=== PATIENT | male | born 1960 ===

== ENCOUNTER 2020-04-21 12:43 | Outpatient (RCR) | payer OTHER, SELFPAY | END 2020-09-29 14:00 | disposition home or self-care (01) | LOC: HO.WCC 12:43 | PROVIDERS: Visit Provider Surgery | DX: E10.622 Type 1 diabetes mellitus with other skin ulcer (principal); L97.825 Non-pressure chronic ulcer of other part of left lower leg with muscle involvement without evidence of necrosis; T87.89 Other complications of amputation stump; E10.51 Type 1 diabetes mellitus with diabetic peripheral angiopathy without gangrene; E10.42 Type 1 diabetes mellitus with diabetic polyneuropathy; I10 Essential (primary) hypertension; Z89.512 Acquired absence of left leg below knee; Z89.511 Acquired absence of right leg below knee; Z91.19 Patient's noncompliance with other medical treatment and regimen | CPT/HCPCS: 11042; 11043 ==

== ENCOUNTER 2020-08-14 08:57 | Outpatient (REF) | payer OTHER, SELFPAY ==
--- NOTE | ~2020-08-14 | XR_ITS ---
EXAMINATION: XR TIBIA AND FIBULA, LEFT CLINICAL INFORMATION: Fall. COMPARISON: None TECHNIQUE: AP and lateral views of the left tibia and fibula were obtained. FINDINGS: Status post below-knee amputation. There is lucency suspicious for ulceration of the lateral aspect of the amputation stump. There is osseous bridging between the tibia and fibula in the distal amputation margin. Chronic-appearing ossifications are seen along the distal aspect of the tibia/stump. No acute fracture is seen. Severe medial compartment arthritis. Moderate lateral and patellofemoral arthritis. Chronic ossification adjacent to the superior pole of the patella/suprapatellar region. This may reflect a loose body. Vascular calcification. XR/XR tibia fibula LT 2V IMPRESSION: Status post below-knee amputation. Question soft tissue wound/ulceration in the lateral aspect of the amputation stump. Ossifications in the soft tissues along the distal tibia/stump, appearing chronic. No acute fracture is seen. Tricompartment osteoarthritis left knee.
== END 2020-08-14 08:58 | disposition home or self-care (01) ==
LOC: HO.XRAY 08:57
PROVIDERS: PCP Internal Medicine; Visit Provider Surgery
DX: Z91.81 History of falling (principal); E11.628 Type 2 diabetes mellitus with other skin complications; T14.8XXA Other injury of unspecified body region, initial encounter
CPT/HCPCS: 73590

== ENCOUNTER 2020-09-22 10:59 | Outpatient (REF) | payer OTHER, SELFPAY ==
[2020-09-22 11:33] LABS: MANUAL DIFF FLAG NO
[2020-09-22 11:36] LABS: Basophils Absolute Auto 0.1 X10*3/uL (0.0-0.2); Basophils Percent Auto 0.6 % (0-2); Eosinophils Absolute Auto 0.6 X10*3/uL (0.0-0.4); Eosinophils Percent Auto 6.8 % (0-4); Hematocrit 33.9 % (42-52); Hemoglobin 10.2 g/dl (14.0-18.0); Imm Gran Abs Auto 0.03 X10*3/uL (0.00-0.03); Imm Gran Pct Auto 0.4 % (0.0-0.4); Lymphocytes Absolute Auto 2.6 X10*3/uL (1.2-4.9); Lymphocytes Percent Auto 32.6 % (20-40); Mean Corpuscular HGB Conc 30.1 g/dl (31.0-36.0); Mean Corpuscular Hemoglobin 22.3 pg (27.0-33.0); Mean Corpuscular Volume 74.2 fL (80-98); Mean Platelet Volume 9.8 fL (9.4-12.4); Monocytes Absolute Auto 0.7 X10*3/uL (0.1-1.2); Monocytes Percent Auto 8.8 % (2-11); Neutrophils Absolute Auto 4.1 X10*3/uL (2.0-8.3); Neutrophils Percent Auto 50.8 % (45-73); Platelet Count 298 X10*3/uL (160-400); Red Blood Count 4.57 X10*6/uL (4.60-5.80); Red Cell Distribution Width 17.9 % (11.0-16.0); White Blood Count 8.1 X10*3/uL (4.8-10.8)
[2020-09-22 11:51] LABS: Estimated Average Glucose 240 mg/dL
[2020-09-22 12:02] LABS: Anion Gap 12 (12-20); Blood Urea Nitrogen 13 mg/dL (9-16); C Reactive Protein 0.58 mg/dL (< or = 0.50); Calcium 9.7 mg/dL (8.4-10.2); Carbon Dioxide 29 mmol/L (22-29); Chloride 102 mmol/L (96-108); Estimated Glomerular Filt Rate > 60; Glucose Random 225 mg/dL (60-115); Potassium 4.7 mmol/L (3.3-5.1); Sodium 138 mmol/L (135-145)
[2020-09-22 12:21] LABS: Erythrocyte Sedimentation Rate 34 MM/HR (0-15)
== END 2020-09-22 11:00 | disposition home or self-care (01) ==
LOC: HO.LAB 10:59
PROVIDERS: PCP Internal Medicine; Visit Provider Physician Assistant
DX: S81.802A Unspecified open wound, left lower leg, initial encounter (principal)
CPT/HCPCS: 36415; 80048; 83036; 84134; 85025; 85652; 86140

== ENCOUNTER 2020-09-29 12:48 | Outpatient (REF) | payer OTHER, SELFPAY ==
--- NOTE | ~2020-09-29 | MR_ITS ---
EXAMINATION: MR LOWER LEG WITHOUT AND WITH CONTRAST, LEFT CLINICAL INFORMATION: Amputation. Nonhealing wound. COMPARISON: Left tibia and fibula radiographs dated 08/14/2020 TECHNIQUE: Multisequence MR imaging of the left tibia and fibula was obtained before and after the administration of 10 mL Gadavist IV contrast on a high-field strength scanner. FINDINGS: BONE: Status post right-sided below-knee amputation seen on coronal images. No associated marrow edema. Left-sided below-knee amputation through the mid tibial diaphysis. There is increased T2/decreased T1 signal within the distal tibial diaphysis adjacent to the amputation demonstrating minimal postcontrast enhancement, likely indicating mild osteomyelitis. No additional abnormal marrow signal. MUSCLES/TENDONS: Severe muscle atrophy. INTRA-ARTICULAR STRUCTURES: Bilateral tricompartmental osteoarthritis. Intra-articular structures are poorly visualized on large [id number] imaging. SOFT TISSUES: Soft tissue ulceration at the inferior/lateral aspect of the mid lower leg in the region of the amputation with diffuse soft tissue edema and postcontrast enhancement, consistent with cellulitis. There is a peripherally enhancing fluid collection ventral to the distal tibia measuring approximately 1.2 x 3.2 x 3.3 cm, consistent with abscess formation. MR/MR lower leg LT wo/w con IMPRESSION: Soft tissue ulceration with prominent cellulitis at the mid lower leg in the region of the amputation. Peripherally enhancing fluid collection anterior to the distal tibia, consistent with abscess formation and measuring up to 3.3 cm. Adjacent marrow edema and mild enhancement of the distal tibia, likely representing mild osteoarthritis. No osseous erosion. Partially visualized right-sided below-knee amputation without evidence of complication.
== END 2020-09-29 12:49 | disposition home or self-care (01) ==
LOC: HO.MRI 12:48
PROVIDERS: Visit Provider Physician Assistant
DX: L97.825 Non-pressure chronic ulcer of other part of left lower leg with muscle involvement without evidence of necrosis (principal); M86.9 Osteomyelitis, unspecified
CPT/HCPCS: 73720; A9585

== ENCOUNTER 2021-01-18 12:25 | Emergency (ER) | payer OTHER, SELFPAY ==
--- NOTE | ~2021-01-18 | XR_ITS ---
EXAMINATION: XR CHEST CLINICAL INFORMATION: Cough and SOB. COMPARISON: Chest 04/06/2014. TECHNIQUE: 2 views of the chest were obtained. FINDINGS: The lungs are well-expanded and clear. The heart size and pulmonary vascularity is normal. No gross bony or the body seen. XR/XR chest 2V IMPRESSION: Unremarkable chest exam.
--- NOTE | ~2021-01-18 | CT_ITS ---
EXAMINATION: CT ANGIOGRAM OF THE CHEST WITH AND WITHOUT CONTRAST (CT PULMONARY ANGIOGRAM FOR PE) CLINICAL INFORMATION: Reason for Exam Elevated D-dimer. Cough. SOB. Elevated BNP COMPARISON: CT chest December 02, 2013 TECHNIQUE: Prior to contrast administration, noncontrast localization images were obtained. Subsequently, multidetector volumetric imaging was performed from the thoracic inlet to below the diaphragms following the administration of 85 mL Omnipaque 350 intravenous contrast. No contrast reaction reported Sagittal, coronal, and MIP oblique sagittal reformatted images were obtained on the CT workstation, uploaded to PACS, and reviewed. This CT examination was performed using dose optimization techniques as appropriate, variously including the following: *Automated exposure control *Adjustment of mA and/or kV according to patient size (this includes techniques or standardized protocols for targeted exams where dose is matched to indication/reason for exam; i.e. extremities or head) *Use of iterative reconstruction technique Total exam dose-length product 707 mGy-cm FINDINGS: QUALITY OF STUDY/CONTRAST BOLUS: Limited PULMONARY ARTERIES: No evidence of central pulmonary emboli. Limited opacification of the pulmonary arteries diminishes sensitivity for pulmonary emboli, particularly in the peripheral vessels. THORACIC AORTA: No aneurysm or dissection. LUNG: No focal consolidation, nodules or masses. PLEURA: No pleural effusion or pneumothorax. MEDIASTINUM: Normal heart size. No pericardial effusion. No hilar or mediastinal lymphadenopathy. No evidence of septal bowing or right heart strain. CHEST WALL/AXILLA: No axillary or internal mammary lymphadenopathy. OSSEOUS STRUCTURES: No acute or suspicious osseous abnormality. UPPER ABDOMEN: Small gallstones layering dependently in the gallbladder. No edema of the gallbladder wall or bile duct dilatation. No reflux of contrast into the hepatic veins to suggest elevated right heart pressures. Small splenule at the anterior splenic margin. CT/CT angio chest PE protocol IMPRESSION: 1. No evidence of central pulmonary emboli. Limited opacification of the pulmonary arteries. If clinical concern remains for pulmonary embolism. Ventilation perfusion lung scan could be considered. 2. No acute abnormality of the chest. VTE: negative
[2021-01-18 12:34] VITALS: BP 112/90; PULSE 70; RESP 18; TEMP 36.8; O2SAT 97; BMI 36.5
[2021-01-18] MEDS: Benzonatate 100 MG CAPSULE 200 MG PO (13:03)
[2021-01-18] MEDS: HYDROcodone/Homat 5/1.5/5 ML 5 ML SYRUP PO (13:03)
--- NOTE | 2021-01-18 13:30 | ED_ITS ---
HPI - General Adult General Chief complaint: General Medical Stated complaint: SOB, COUGH Time Seen by Provider: 01/18/21 12:50 Source: patient Mode of arrival: ambulatory History of Present Illness HPI narrative: 60-year-old male with a PMHx of DM, bilateral BKA, presenting to ED complaining of dry cough, nasal congestion and SOB worsening x3 weeks. Patient admits was seen at [facility] on 01/16 for similar symptoms had workup that was unremarkable however reports continued unremitting cough. Denies fever, chills, chest pain, abdominal pain, nausea/vomiting, recent travel, history of blood clots. Does not take anticoagulation Obtained records from [facility] patient had CXR that showed increasing atelectasis, labs that were notable for BNP>1000, otherwise unremarkable. Patient was discharged with diagnosis of viral syndrome prescribed cough syrup with codeine. Related Data Home Medications Medication Instructions Recorded Confirmed dulaglutide 0.75 mg/0.5 mL 0.75 mg SUBCUT QWEEK 03/17/20 12/02/20 subcutaneous pen injector (Trulicity) hydrocortisone 1 % topical cream 1 applic TOPICAL BID-QID PRN 03/17/20 12/02/20 (Anti-Itch (hydrocortisone)) metformin 1,000 mg tablet 1,000 mg PO BID 03/17/20 12/02/20 mupirocin calcium 2 % topical cream 1 applic TOPICAL TID 03/17/20 12/02/20 polyethylene glycol 3350 17 17 g PO DAILY 03/17/20 12/02/20 gram/dose oral powder (Miralax) ferrous sulfate 325 mg (65 mg 325 mg PO DAILY 12/02/20 12/02/20 iron) tablet Previous Rx's Medication Instructions Recorded lancets 28 gauge (FreeStyle 28 gauge TOPICAL QID 30 Days #120 05/25/20 Lancets) ea blood sugar diagnostic (FreeStyle #100 ea 07/13/20 Test) atorvastatin 80 mg tablet 80 mg PO DAILY #30 tab 09/05/20 aspirin 81 mg tablet,delayed 81 mg PO DAILY #90 tab 09/30/20 release (Adult Low Dose Aspirin) ferrous sulfate 325 mg (65 mg 325 mg PO DAILY 90 Days #90 tab 09/30/20 iron) tablet,delayed release insulin lispro 100 unit/mL 35 unit SUBCUT TID 30 Days #31.5 ml 10/14/20 subcutaneous pen (Humalog KwikPen (U-100) Insulin) ibuprofen 800 mg tablet 800 mg PO TID #90 tab 10/27/20 insulin syringe-needle U-100 0.3 #100 ea 11/05/20 mL 31 gauge x 11/01 bilateral socket replacement #1 ea 11/10/20 dextromethorphan HBr 2.5 mg 5 mg PO Q2-4H PRN 5 Days #16 ea 12/02/20 lozenges (Scot-Tussin DM Cough Chasers) insulin glargine 100 unit/mL (3 65 unit SUBCUT QPM 90 Days #58.5 ml 12/09/20 mL) subcutaneous pen (Lantus Solostar U-100 Insulin) amlodipine 10 mg tablet 10 mg PO DAILY #30 tab 12/17/20 lisinopril 30 mg tablet 30 mg PO DAILY #90 tab 12/17/20 pantoprazole 40 mg tablet,delayed 40 mg PO DAILY #30 tab 12/23/20 release cholecalciferol (vitamin D3) 25 25 mcg PO DAILY #90 cap 12/31/20 mcg (1,000 unit) capsule (Vitamin D3) azithromycin 250 mg tablet 250 mg PO DIRECTED 5 Days #6 tab 01/06/21 lorazepam 1 mg tablet 1 mg PO BID PRN 30 Days #60 tab 01/07/21 zolpidem 10 mg tablet 10 mg PO ONCE #30 tab 01/07/21 insulin glargine 100 unit/mL (3 65 unit SUBCUT QPM 90 Days #58.5 ml 01/12/21 mL) subcutaneous pen (Lantus Solostar U-100 Insulin) albuterol sulfate 90 mcg/actuation 2 puff INHALATION Q4-6H PRN #6.7 g 01/18/21 aerosol inhaler apixaban 5 mg tablet (Eliquis) 5 mg PO BID 30 Days #60 tab 01/18/21 azithromycin 250 mg tablet See Rx Instructions .ROUTE 01/18/21 .COMPLEX #6 tab Allergies Allergy/AdvReac Type Severity Reaction Status Date / Time No Known Allergies Allergy Verified 12/02/20 10:39 Review of Systems Review of Systems: Constitutional: No Fever, No Chills, No Fatigue, No Malaise ENT/Mouth: No Ear Pain, + Nasal Congestion, No sore throat Eyes: No Eye Pain, No Swelling Cardiovascular: No Chest Pain, + SOB, No Dyspnea on Exertion, No Orthopnea, No Edema Respiratory: + Cough, No Sputum, No Wheezing, No Smoke Exposure, + Dyspnea Gastrointestinal: No Nausea, No Vomiting, No Abdominal pain Genitourinary: No Dysuria, No Urinary Frequency, No Hematuria Musculoskeletal: No joint pain, No Myalgias, No Joint Swelling Skin: No Skin Lesions, No rash Neuro: No Weakness, No Numbness, No Paresthesias, No Loss of Consciousness, No Dizziness, No Headache Yes all other systems are reviewed and are negative [facility] Past Medical History Attestation statement: The following information was validated with the patient. Medical History Depression with anxiety Diabetes mellitus Dyslipidemia Employs prosthetic leg Essential hypertension GERD (gastroesophageal reflux disease) History of heroin use Insomnia Surgical History Absence of right lower leg below knee Amputated toe of left foot Below-knee amputation of left lower extremity S/P BKA (below knee amputation) bilateral Family History Family History Father Medical history unknown Mother Diabetes Hypertension Stroke Brother No problems noted. Brother No problems noted. Son No problems noted. Daughter No problems noted. Social History Social History Housing: Apartment Alcohol intake: never Patient Tobacco Use Status: Former Tobacco user Tobacco use type: Cigarette e-Cigarette/Vaping Use: Never Used Second Hand Smoke Exposure: No Use of substances other than those prescribed or required for medical reasons: No Advance Directives: No Advance Directives Information Provided: No service: No Current occupational status: disabled Physical Exam Vital Signs: Vital Signs: Last Vital Signs Temp 98.2 F 01/18/21 12:34 Pulse 86 01/18/21 15:30 Resp 18 01/18/21 12:34 BP 112/90 H 01/18/21 12:34 Pulse Ox 97 01/18/21 12:34 Body Mass Index 36.5 Const: General: cooperative Orientation/consciousness: patient oriented x3 Limitations: no limitations HENMT: Head: Yes normal to inspection Ears: hearing grossly normal bilaterally General nose exam: Nasal discharge present purulent Face and sinus: Yes normal facial exam Eyes: General: appearance normal, both eyes and all related structures EOM: EOMs intact bilaterally Neck: Neck: Yes normal visual inspection and Yes no meningeal signs Resp: Effort & Inspection: normal respiratory effort Auscultation: no wheezes and diminished lung sounds (diminished breath sounds bibasilar) Cardio: Rate: regular rate Heart sounds: S1 normal heart sound present and S2 normal heart sound present GI: Inspection: Yes normal to inspection Palpation (GI): Soft to palpation, nontender and no guarding : General: Yes no CVA tenderness Back/Spine/Pelvis: Back: no CVA tenderness Skin: Rashes: no rashes Wounds: no wounds Neuro: General: patient oriented x3 and no meningeal signs Gait exam (Neuro): Normal gait present Extrem: Other: Bilateral BKA General: Yes normal to inspection Course Course Course Narrative: XR chest 2V IMPRESSION: Unremarkable chest exam. -EKG noted to be AFib at a rate of 77. No prior evidence or history of AFib, however patient does appear to have been in AFib at [facility] on 01/16/21. ChadVasc2 score = 3 patient should be anticoagulated. Does appear patient was previously on Eliquis 5mg b.i.d. in October, patient does not know why he was on this medication nor why he was discontinued on it (per [facility] records appear was for DVT prophylaxis) -No leukocytosis, H&H stable, D-dimer elevated to 567 >> CTA ordered -troponin mildly elevated at 13.7 > will obtain 3 hour repeat, BNP 217, labs otherwise unremarkable -COVID-19/influenza/RSV negative 1718- CT angio chest PE protocol IMPRESSION:? 1. No evidence of central pulmonary emboli. Limited opacification of the pulmonary arteries. If clinical concern remains for pulmonary embolism. Ventilation perfusion lung scan could be considered. 2. No acute abnormality of the chest. VTE: negative -1737--case discussed with Cardiology, Dr. Lundberg who recommended anticoagulation. Patient's SOB likely from URI rather than acute heart failure, no echo in our system, will symptomatically treated & have close follow-up with Cardiology for outpatient ECHO Medical Decision Making MDM Narrative Medical decision making narrative: 60-year-old male with a PMHx of DM, bilateral BKA, presenting to ED complaining of dry cough, nasal congestion and SOB worsening x3 weeks. On exam vital signs stable, diminished breath sounds bibasilar, bilateral BKA. Concern for viral syndrome/COVID-19 vs pneumonia vs bronchitis vs PE/CHF. Symptoms atypical for ACS Plan: EKG, labs, CXR, DuoNeb, COVID-19 testing, reassess Lab Data Result diagrams: 01/18/21 14:03 01/18/21 14:03 Labs: Lab Results 01/18/21 01/18/21 01/18/21 Range/Units 13:15 14:03 14:03 WBC 10.1 (4.8-10.8) X10*3/uL RBC 4.45 L (4.60-5.80) X10*6/uL Hgb 11.1 L (14.0-18.0) g/dl Hct 35.7 L (42-52) % MCV 80.2 (80-98) fL MCH 24.9 L (27.0-33.0) pg MCHC 31.1 (31.0-36.0) g/dl RDW 18.6 H (11.0-16.0) % Plt Count 248 (160-400) X10*3/uL MPV 9.6 (9.4-12.4) fL Immature Gran % (Auto) 0.3 (0.0-0.4) % Neut % (Auto) 44.1 L (45-73) % Lymph % (Auto) 28.4 (20-40) % [place] % (Auto) 5.3 (2-11) % Eos % (Auto) 21.5 H (0-4) % Baso % (Auto) 0.4 (0-2) % Lymph # (Auto) 2.9 (1.2-4.9) X10*3/uL [place] # (Auto) 0.5 (0.1-1.2) X10*3/uL Eos # (Auto) 2.2 H (0.0-0.4) X10*3/uL Baso # (Auto) 0.0 (0.0-0.2) X10*3/uL Abs Immat Gran (auto) 0.03 (0.00-0.03) X10*3/uL Absolute Neuts (auto) 4.5 (2.0-8.3) X10*3/uL Absolute Nucleated RBC 0.000 (0.0-0.012) X10*3/uL Nucleated RBC % (auto) 0.0 (0.0-0.2) /100WBC Smear Tech's Comments VERIFIED PT 11.8 (9.9-13.0) SEC INR 1.0 (0.9-1.1) APTT 30.4 (24.1-38.0) SEC D-Dimer 567 NG/ML Sodium (135-145) mmol/L Potassium (3.3-5.1) mmol/L Chloride (96-108) mmol/L Carbon Dioxide (22-29) mmol/L Anion Gap (12-20) BUN (9-16) mg/dL Creatinine (0.5-1.4) mg/dL Estim Creat Clear Calc Estimated GFR Random Glucose (60-115) mg/dL Calcium (8.4-10.2) mg/dL Total Bilirubin (0.0-1.0) mg/dL Direct Bilirubin (0.0-0.5) mg/dL AST (5-37) U/L ALT (0-40) U/L Alkaline Phosphatase (39-117) U/L Troponin I High Sens (<3.5-35.0) ng/L B-Natriuretic Peptide (<100) pg/mL Total Protein (6.5-8.0) g/dL Albumin (3.5-5.0) g/dL Coronavirus (PCR) NEGATIVE (Negative) Influenza Type A (PCR) NEGATIVE (Negative) Influenza Type B (PCR) NEGATIVE (Negative) RSV RNA Qual (PCR) NEGATIVE (Negative) 01/18/21 01/18/21 Range/Units 14:03 14:03 WBC (4.8-10.8) X10*3/uL RBC (4.60-5.80) X10*6/uL Hgb (14.0-18.0) g/dl Hct (42-52) % MCV (80-98) fL MCH (27.0-33.0) pg MCHC (31.0-36.0) g/dl RDW (11.0-16.0) % Plt Count (160-400) X10*3/uL MPV (9.4-12.4) fL Immature Gran % (Auto) (0.0-0.4) % Neut % (Auto) (45-73) % Lymph % (Auto) (20-40) % [place] % (Auto) (2-11) % Eos % (Auto) (0-4) % Baso % (Auto) (0-2) % Lymph # (Auto) (1.2-4.9) X10*3/uL [place] # (Auto) (0.1-1.2) X10*3/uL Eos # (Auto) (0.0-0.4) X10*3/uL Baso # (Auto) (0.0-0.2) X10*3/uL Abs Immat Gran (auto) (0.00-0.03) X10*3/uL Absolute Neuts (auto) (2.0-8.3) X10*3/uL Absolute Nucleated RBC (0.0-0.012) X10*3/uL Nucleated RBC % (auto) (0.0-0.2) /100WBC Smear Tech's Comments PT (9.9-13.0) SEC INR (0.9-1.1) APTT (24.1-38.0) SEC D-Dimer NG/ML Sodium 137 (135-145) mmol/L Potassium 3.9 (3.3-5.1) mmol/L Chloride 104 (96-108) mmol/L Carbon Dioxide 25 (22-29) mmol/L Anion Gap 12 (12-20) BUN 8 L (9-16) mg/dL Creatinine 0.76 (0.5-1.4) mg/dL Estim Creat Clear Calc 159.6 Estimated GFR > 60 Random Glucose 282 H (60-115) mg/dL Calcium 8.7 D (8.4-10.2) mg/dL Total Bilirubin 0.3 (0.0-1.0) mg/dL Direct Bilirubin < 0.2 (0.0-0.5) mg/dL AST 16 (5-37) U/L ALT 9 (0-40) U/L Alkaline Phosphatase 158 H (39-117) U/L Troponin I High Sens 13.7 (<3.5-35.0) ng/L B-Natriuretic Peptide 217 H (<100) pg/mL Total Protein 5.8 L (6.5-8.0) g/dL Albumin 2.6 L (3.5-5.0) g/dL Coronavirus (PCR) (Negative) Influenza Type A (PCR) (Negative) Influenza Type B (PCR) (Negative) RSV RNA Qual (PCR) (Negative) Discharge Plan Discharge Clinical Impression: URI (upper respiratory infection), Atrial fibrillation Instructions: A-fib (Atrial Fibrillation) (ED) Additional Instructions: You are in a new heart rhythm called atrial fibrillation, this puts you at higher risk of strokes, you need to start taking Eliquis which is a blood thinner Being on a blood thinner also which a higher risk of bleeding, fever knee falls, or head injury please come to the ED for evaluation You need to follow-up with cardiology as soon as possible, call tomorrow to make an appointment Azithromycin as an antibiotic, please take as prescribed In addition use albuterol inhaler, and Tessalon Perles for cough/shortness of breath If her symptoms persist or worsen, you have constant worsening shortness of breath, developed chest pain,, fever, weakness return to the ED immediately Prescriptions: New Eliquis 5 mg tablet 5 mg PO BID 30 Days Qty: 60 RF: 0 albuterol sulfate 90 mcg/actuation HFA aerosol inhaler 2 puff inhalation Q4-6H PRN (Reason: shortness of breath or wheezing) Qty: 6.7 RF: 0 azithromycin 250 mg tablet See Rx Instructions .ROUTE .COMPLEX Qty: 6 RF: 0 No Action lancets [FreeStyle Lancets] 28 gauge misc 28 gauge topical QID 30 Days Qty: 120 RF: 11 (DME) FreeStyle Test Strip See Rx Instructions .ROUTE .MEDSUPPLY Qty: 100 RF: 11 atorvastatin 80 mg tablet 80 mg PO DAILY Qty: 30 RF: 6 insulin lispro [Humalog KwikPen Insulin] 100 unit/mL insulin pen 35 unit subcut TID 30 Days Qty: 31.5 RF: 6 ibuprofen 800 mg tablet 800 mg PO TID Qty: 90 RF: 3 (DME) bilateral socket replacement See Rx Instructions .Route .MEDSUPPLY Qty: 1 RF: 0 Lantus Solostar U-100 Insulin 100 unit/mL (3 mL) insulin pen 65 unit subcut QPM 90 Days Qty: 58.5 RF: 2 amlodipine 10 mg tablet 10 mg PO DAILY Qty: 30 RF: 6 lisinopril 30 mg tablet 30 mg PO DAILY Qty: 90 RF: 3 pantoprazole 40 mg tablet,delayed release (DR/EC) 40 mg PO DAILY Qty: 30 RF: 4 cholecalciferol (vitamin D3) [Vitamin D3] 25 mcg (1,000 unit) capsule 25 mcg PO DAILY Qty: 90 RF: 3 azithromycin 250 mg tablet 250 mg PO DIRECTED 5 Days Qty: 6 RF: 0 zolpidem 10 mg tablet 10 mg PO ONCE Qty: 30 RF: 0 lorazepam 1 mg tablet 1 mg PO BID PRN (Reason: agitation) 30 Days Qty: 60 RF: 0 Lantus Solostar U-100 Insulin 100 unit/mL (3 mL) insulin pen 65 unit subcut QPM 90 Days Qty: 58.5 RF: 3 mupirocin calcium 2 % cream 1 applic topical TID RF: 0 hydrocortisone [Anti-Itch (HC)] 1 % cream 1 applic topical BID-QID PRNRF: 0 polyethylene glycol 3350 [Miralax] 17 gram/dose powder 17 g PO DAILY RF: 0 metformin 1,000 mg tablet 1,000 mg PO BID RF: 0 Trulicity 0.75 mg/0.5 mL pen injector 0.75 mg subcut QWEEK RF: 0 ferrous sulfate 325 mg (65 mg iron) tablet,delayed release (DR/EC) 325 mg PO DAILY 90 Days Qty: 90 RF: 3 aspirin [Adult Low Dose Aspirin] 81 mg tablet,delayed release (DR/EC) 81 mg PO DAILY Qty: 90 RF: 2 (DME) insulin syringe-needle U-100 0.3 mL 31 gauge x 5/16 syringe See Rx Instructions .ROUTE .MEDSUPPLY Qty: 100 RF: 3 ferrous sulfate 325 mg (65 mg iron) tablet 325 mg PO DAILY RF: 0 Scot-Tussin DM Cough Chasers 2.5 mg lozenge 5 mg PO Q2-4H PRN (Reason: cough) 5 Days Qty: 16 RF: 0 Referrals: Mark Lundberg MD [Physician] - 2 days Yoli Ocampo MD [Primary Care Provider] - 2 days
[2021-01-18] MEDS: Albuterol/Iprat 2.5/0.5MG 3 ML AMPUL.NEB INHALE ×2 (13:33→15:30)
[2021-01-18 13:34] VITALS: PULSE 81; O2SAT 93
--- NOTE | 2021-01-18 13:37 | ECG_ITS ---
Test Reason : GENERAL MEDICINE Blood Pressure : / mmHG Vent. Rate : 077 BPM Atrial Rate : 075 BPM P-R Int : 000 ms QRS Dur : 094 ms QT Int : 402 ms P-R-T Axes : 000 -44 002 degrees QTc Int : 454 ms Atrial fibrillation Left axis deviation Abnormal ECG When compared to the previous EKG of Atrial fibrillation Present Referred By: Debbie Perez Electronically Signed By:Mark Lundberg
[2021-01-18 13:59] LABS: Influenza A PCR NEGATIVE (Negative); Influenza B PCR NEGATIVE (Negative); Resp Syncy Virus RNA Qual PCR NEGATIVE (Negative); SARS COV2 PCR INHOUSE NEGATIVE (Negative)
[2021-01-18 14:08] LABS: Basophils Percent Auto 0.4 % (0-2); Eosinophils Absolute Auto 2.2 X10*3/uL (0.0-0.4); Eosinophils Percent Auto 21.5 % (0-4); Hematocrit 35.7 % (42-52); Hemoglobin 11.1 g/dl (14.0-18.0); Imm Gran Abs Auto 0.03 X10*3/uL (0.00-0.03); Imm Gran Pct Auto 0.3 % (0.0-0.4); Lymphocytes Absolute Auto 2.9 X10*3/uL (1.2-4.9); Lymphocytes Percent Auto 28.4 % (20-40); Mean Corpuscular HGB Conc 31.1 g/dl (31.0-36.0); Mean Corpuscular Hemoglobin 24.9 pg (27.0-33.0); Mean Corpuscular Volume 80.2 fL (80-98); Mean Platelet Volume 9.6 fL (9.4-12.4); Monocytes Absolute Auto 0.5 X10*3/uL (0.1-1.2); Monocytes Percent Auto 5.3 % (2-11); Neutrophils Absolute Auto 4.5 X10*3/uL (2.0-8.3); Neutrophils Percent Auto 44.1 % (45-73); Platelet Count 248 X10*3/uL (160-400); Red Blood Count 4.45 X10*6/uL (4.60-5.80); Red Cell Distribution Width 18.6 % (11.0-16.0); White Blood Count 10.1 X10*3/uL (4.8-10.8)
[2021-01-18 14:11] LABS: MANUAL DIFF FLAG SCAN
[2021-01-18 14:18] LABS: Prothrombin Time 11.8 SEC (9.9-13.0)
[2021-01-18 14:21] LABS: D Dimer 567 NG/ML; Partial Thromboplastin Time 30.4 SEC (24.1-38.0)
[2021-01-18 14:38] LABS: Alanine Aminotransferase 9 U/L (0-40); Albumin Level 2.6 g/dL (3.5-5.0); Alkaline Phosphatase 158 U/L (39-117); Anion Gap 12 (12-20); Aspartate Amino Transferase 16 U/L (5-37); Bilirubin Direct < 0.2 mg/dL (0.0-0.5); Bilirubin Total 0.3 mg/dL (0.0-1.0); Blood Urea Nitrogen 8 mg/dL (9-16); Calcium 8.7 mg/dL (8.4-10.2); Carbon Dioxide 25 mmol/L (22-29); Chloride 104 mmol/L (96-108); Creatinine Clr Calc Pharmacy 159.6; Estimated Glomerular Filt Rate > 60; Glucose Random 282 mg/dL (60-115); Potassium 3.9 mmol/L (3.3-5.1); Sodium 137 mmol/L (135-145); Total Protein 5.8 g/dL (6.5-8.0)
[2021-01-18 14:39] LABS: SLIDE REVIEW VERIFIED
[2021-01-18 14:42] LABS: B Type Natriuretic Peptide 217 pg/mL (<100); Troponin-I High Sensitivity 13.7 ng/L (<3.5-35.0)
[2021-01-18 15:30] VITALS: PULSE 86; O2SAT 95
[2021-01-18] MEDS: Fluticasone Propionate Nasal 16 GM SPRAY 2 SPRAY NOSTRIL-B (15:37)
[2021-01-18] MEDS: iohexoL 350 MG/ML 100 ML INFUS..BTL IV (16:46)
--- NOTE | 2021-01-18 17:04 | PC.NURSE ---
awaiting ct results and second trop being drawn at this time
[2021-01-18] MEDS: Apixaban 5 MG TABLET PO (17:55)
== END 2021-01-18 17:59 | disposition home or self-care (01) ==
PROVIDERS: Physician Assistant; Emergency Provider Emergency Medicine; PCP Internal Medicine
DX: J06.9 Acute upper respiratory infection, unspecified (principal); I48.91 Unspecified atrial fibrillation; Z20.822 Contact with and (suspected) exposure to COVID-19; R06.02 Shortness of breath; I10 Essential (primary) hypertension; E11.9 Type 2 diabetes mellitus without complications; Z79.4 Long term (current) use of insulin; Z79.82 Long term (current) use of aspirin; Z79.899 Other long term (current) drug therapy
CPT/HCPCS: 0241U; 36415; 71046; 71275; 80048; 80076; 83880; 84484; 85025; 85379; 85610; 85730; 93005; 94640; 99284; Q9967

== ENCOUNTER → 2021-01-21 12:55 | Outpatient (BNVA) | payer OTHER, SELFPAY | PROVIDERS: PCP Internal Medicine; Referring Provider Internal Medicine; Visit Provider Nurse Practitioner Family | DX: I48.91 Unspecified atrial fibrillation (principal); E78.5 Hyperlipidemia, unspecified; E11.59 Type 2 diabetes mellitus with other circulatory complications; I10 Essential (primary) hypertension; G47.10 Hypersomnia, unspecified; E66.9 Obesity, unspecified; Z79.4 Long term (current) use of insulin | CPT/HCPCS: 93005; 99202 ==

== ENCOUNTER → 2021-03-03 13:29 | Outpatient (BNVA) | payer OTHER, SELFPAY | PROVIDERS: PCP Internal Medicine; Referring Provider Internal Medicine; Visit Provider Nurse Practitioner Family ==

== ENCOUNTER → 2021-03-11 15:06 | Outpatient (REF) | payer OTHER, SELFPAY | LOC: HO.SL 15:06 | PROVIDERS: PCP Internal Medicine; Visit Provider Nurse Practitioner Family | DX: G47.10 Hypersomnia, unspecified (principal); I48.91 Unspecified atrial fibrillation | CPT/HCPCS: 95806 ==

== ENCOUNTER 2021-03-14 11:44 | Inpatient (IN) | payer OTHER, SELFPAY ==
[2021-03-14] VITALS (16 sets, daily range): BP systolic 109–162; BP diastolic 48–90; PULSE 78–100; RESP 15–90; TEMP 36.5–37.1; O2SAT 88–96; BMI 36.5
--- NOTE | ~2021-03-14 | CT_ITS ---
EXAMINATION: CT ANGIOGRAM OF THE CHEST WITH AND WITHOUT CONTRAST (CT PULMONARY ANGIOGRAM FOR PE) CLINICAL INFORMATION: Reason for Exam Hypoxia. PE? pneumonia? COMPARISON: 01/18/2021 TECHNIQUE: Prior to contrast administration, noncontrast localization images were obtained. Subsequently, multidetector volumetric imaging was performed from the thoracic inlet to below the diaphragms following the administration of 71 mL Omnipaque 350 intravenous contrast. No contrast reaction reported Sagittal, coronal, and MIP oblique sagittal reformatted images were obtained on the CT workstation, uploaded to PACS, and reviewed. This CT examination was performed using dose optimization techniques as appropriate, variously including the following: *Automated exposure control *Adjustment of mA and/or kV according to patient size (this includes techniques or standardized protocols for targeted exams where dose is matched to indication/reason for exam; i.e. extremities or head) *Use of iterative reconstruction technique Total exam dose-length product 550 mGy-cm FINDINGS: QUALITY OF STUDY/CONTRAST BOLUS: Satisfactory. PULMONARY ARTERIES: No central or segmental pulmonary emboli. THORACIC AORTA: No aneurysm or dissection. LUNG: Patchy peripheral groundglass opacities are noted favoring atypical infection. No mass. PLEURA: No pleural effusion or pneumothorax. MEDIASTINUM: Normal heart size. No pericardial effusion. Mildly prominent right paratracheal and prevascular lymph nodes are similar to baseline. Appearance is similar to older studies going back to 2013. No evidence of septal bowing or right heart strain. CHEST WALL/AXILLA: No axillary or internal mammary lymphadenopathy. OSSEOUS STRUCTURES: No acute or suspicious osseous abnormality. UPPER ABDOMEN: Splenules noted No reflux of contrast into the hepatic veins to suggest elevated right heart pressures. CT/CT angio chest PE protocol IMPRESSION: No evidence for acute or chronic pulmonary embolism. Findings of atypical infection favoring viral infection. VTE: negative
--- NOTE | ~2021-03-14 | XR_ITS ---
EXAMINATION: XR CHEST CLINICAL INFORMATION: Pneumonia. COMPARISON: CT angiogram chest 01/18/2021 and chest x-ray 01/18/2021. TECHNIQUE: Frontal view of the chest was obtained. FINDINGS: The lungs are well-expanded without acute pneumonic consolidation. There is mild increased vascularity slightly more prominent in the right upper lobe, question mild pulmonary vascular congestion. The heart size is normal. Mild degenerative changes right shoulder joint is noted. XR/XR chest 1V IMPRESSION: Mild increased pulmonary vascularity question mild congestion. No acute consolidation seen
[2021-03-14] MEDS: 0.9 % Sodium Chloride 1,000 ML 999 ML IV (12:25)
[2021-03-14 12:47] LABS: MANUAL DIFF FLAG NO
[2021-03-14] MEDS: methylPREDNISolone Sod Succ 125 MG/2 ML VIAL IVPUSH (12:47)
[2021-03-14] MEDS: Magnesium Sulfate/H2O 2 GM/50 ML PIGGYBACK IV (12:47)
[2021-03-14 12:49] LABS: Basophils Absolute Auto 0.1 X10*3/uL (0.0-0.2); Basophils Percent Auto 0.6 % (0-2); Eosinophils Absolute Auto 1.1 X10*3/uL (0.0-0.4); Eosinophils Percent Auto 11.3 % (0-4); Hematocrit 41.5 % (42-52); Hemoglobin 13.4 g/dl (14.0-18.0); Imm Gran Abs Auto 0.03 X10*3/uL (0.00-0.03); Imm Gran Pct Auto 0.3 % (0.0-0.4); Lymphocytes Absolute Auto 1.2 X10*3/uL (1.2-4.9); Lymphocytes Percent Auto 12.4 % (20-40); Mean Corpuscular HGB Conc 32.3 g/dl (31.0-36.0); Mean Corpuscular Hemoglobin 26.6 pg (27.0-33.0); Mean Corpuscular Volume 82.3 fL (80-98); Mean Platelet Volume 9.9 fL (9.4-12.4); Monocytes Absolute Auto 0.7 X10*3/uL (0.1-1.2); Monocytes Percent Auto 6.7 % (2-11); Neutrophils Absolute Auto 6.7 X10*3/uL (2.0-8.3); Neutrophils Percent Auto 68.7 % (45-73); Platelet Count 267 X10*3/uL (160-400); Red Blood Count 5.04 X10*6/uL (4.60-5.80); Red Cell Distribution Width 15.9 % (11.0-16.0); White Blood Count 9.8 X10*3/uL (4.8-10.8)
[2021-03-14 12:54] LABS: INTERNATIONAL NORM RATIO 1.2 (0.9-1.1); Prothrombin Time 13.5 SEC (9.9-13.0)
[2021-03-14 12:57] LABS: Partial Thromboplastin Time 38.5 SEC (24.1-38.0)
--- NOTE | 2021-03-14 12:58 | ED.GENADULT ---
HPI - General Adult General Chief complaint: Upper Respiratory Symptoms Stated complaint: SOB,NO RELIEF W/INHALER Time Seen by Provider: 03/14/21 11:54 Source: patient Mode of arrival: ambulatory Limitations: no limitations History of Present Illness HPI narrative: Patient presents to ED for shortness of breath and cough. Patient denies any chest pain, pleuritic chest pain, weakness, or dizziness. Patient was recently seen in [facility] ER and was diagnosed with pulmonary edema and ear infection. Per EMS patient was 90% on room air and after given albuterol O2 sat improved to 95%. Patient was placed on nasal cannula. Patient denies being on any Lasix or any other diuretic. Related Data Home Medications Medication Instructions Recorded Confirmed metformin 1,000 mg tablet 1,000 mg PO BID 03/17/20 03/14/21 ferrous sulfate 325 mg (65 mg 325 mg PO DAILY 12/02/20 03/14/21 iron) tablet furosemide 40 mg tablet 1 tab PO DAILY 03/14/21 03/14/21 Previous Rx's Medication Instructions Recorded lancets 28 gauge (FreeStyle 28 gauge TOPICAL QID 30 Days #120 05/25/20 Lancets) ea blood sugar diagnostic (FreeStyle #100 ea 07/13/20 Test) atorvastatin 80 mg tablet 80 mg PO DAILY #30 tab 09/05/20 insulin lispro 100 unit/mL 35 unit SUBCUT TID 30 Days #31.5 ml 10/14/20 subcutaneous pen (Humalog KwikPen (U-100) Insulin) insulin syringe-needle U-100 0.3 #100 ea 11/05/20 mL 31 gauge x 11/01 bilateral socket replacement #1 ea 11/10/20 insulin glargine 100 unit/mL (3 65 unit SUBCUT QPM 90 Days #58.5 ml 12/09/20 mL) subcutaneous pen (Lantus Solostar U-100 Insulin) amlodipine 10 mg tablet 10 mg PO DAILY #30 tab 12/17/20 pantoprazole 40 mg tablet,delayed 40 mg PO DAILY #30 tab 12/23/20 release cholecalciferol (vitamin D3) 25 25 mcg PO DAILY #90 cap 12/31/20 mcg (1,000 unit) capsule (Vitamin D3) lisinopril 30 mg tablet 30 mg PO DAILY #90 tab 02/02/21 nebulizers (Aeroneb Go Nebulizer) #1 ea 02/02/21 dulaglutide 0.75 mg/0.5 mL 0.75 mg SUBCUT QWEEK 90 Days #6.5 02/03/21 subcutaneous pen injector ml (Trulicity) albuterol sulfate 90 mcg/actuation 2 puff INHALATION Q4-6H PRN 30 02/23/21 aerosol inhaler Days #6.7 g apixaban 5 mg tablet (Eliquis) 5 mg PO BID 30 Days #60 tab 02/25/21 albuterol sulfate 2.5 mg INHALATION QID PRN 30 Days 03/05/21 #75 ml ibuprofen 800 mg tablet 800 mg PO TID #90 tab 03/08/21 lorazepam 1 mg tablet 1 mg PO BID PRN 30 Days #60 tab 03/08/21 zolpidem 10 mg tablet 10 mg PO ONCE #30 tab 03/08/21 Allergies Allergy/AdvReac Type Severity Reaction Status Date / Time No Known Allergies Allergy Verified 12/02/20 10:39 Review of Systems Review of Systems: Yes all other systems are reviewed and are negative Constitutional: Constitutional: Reports as per HPI and Reports no additional constitutional complaints Eyes: Eyes: Reports as per HPI and Reports no additional eye complaints ENT: Reports system reviewed and no additional complaints, except as documented and Reports as per HPI Cardiovascular: Cardiovascular: Reports as per HPI, Reports no additional cardiovascular complaints and Reports dyspnea Respiratory: Respiratory: Reports as per HPI, Reports no additional respiratory complaints, Reports cough and Reports dyspnea Gastrointestinal: Gastrointestinal: Reports as per HPI and Reports no additional gastrointestinal complaints Musculoskeletal: Musculoskeletal: Reports no additional musculoskeletal complaints and Reports as per HPI Neurologic: Reports system reviewed and no additional complaints, except as documented and Reports as per HPI Psychiatric: Psychiatric: Reports no additional psychiatric complaints and Reports as per HPI PMF Past Medical History Medical History Asthma Depression with anxiety Diabetes mellitus Dyslipidemia Employs prosthetic leg Essential hypertension GERD (gastroesophageal reflux disease) History of heroin use Insomnia Obesity Surgical History Absence of right lower leg below knee Amputated toe of left foot Below-knee amputation of left lower extremity S/P BKA (below knee amputation) bilateral Family History Family History Father Medical history unknown Mother Diabetes Hypertension Stroke Brother No problems noted. Brother No problems noted. Son No problems noted. Daughter No problems noted. Social History Social History Housing: Apartment Alcohol intake: never Patient Tobacco Use Status: Former Tobacco user Tobacco use type: Cigarette e-Cigarette/Vaping Use: Never Used Second Hand Smoke Exposure: No Advance Directives: No Advance Directives Information Provided: No service: No Current occupational status: disabled Physical Exam Vital Signs: Vital Signs: Last Vital Signs Temp 98.0 F 03/14/21 16:23 Pulse 89 03/14/21 16:23 Resp 90 H 03/14/21 16:26 BP 109/48 L 03/14/21 16:23 Pulse Ox 95 03/14/21 16:23 Oxygen Flow Rate 2 03/14/21 11:52 Body Mass Index 36.5 Const: General: cooperative, healthy appearing, comfortable, no acute distress, well developed, alert, awake and Physically active Orientation/consciousness: patient oriented x3 HENMT: Head: Yes normal to inspection, Yes No palpable skull fracture present, Yes normocephalic, Yes atraumatic and No abrasion Eyes: General: appearance normal, both eyes and all related structures Neck: Neck: Yes normal visual inspection, Yes full ROM, Yes no lymphadenopathy, Yes no meningeal signs, Yes trachea midline, Yes supple and No tender Chest: Chest palpation & inspection: normal inspection of the chest and normal palpation of entire chest wall Resp: Effort & Inspection: normal respiratory effort and able to speak in complete sentences Auscultation: wheezes (diffuse) expiratory wheezes Cardio: Jugular venous distension: no JVD Heart sounds: S1 normal heart sound present and S2 normal heart sound present GI: Inspection: Yes normal to inspection and No abdominal wall ecchymosis Palpation (GI): Soft to palpation, not firm, nontender, no guarding and not rigid : General: No CVA tenderness and Yes no CVA tenderness Back/Spine/Pelvis: Back: no CVA tenderness, No CVA tenderness and No back tenderness Skin: General skin exam: no rashes or lesions noted and elasticity normal Neuro: General: patient oriented x3, gait normal, no meningeal signs and CN's II-XI intact bilaterally Cranial nerves: Yes CN's II-XII intact bilaterally Extrem: Other: Bilateral BKA Psych: Appearance: grossly normal, well kempt and not disheveled Course Course Course Narrative: Will get notes from [facility]. Patient will have medical evaluation which included labs, EKG. Asthma cocktail given. Also Lasix due to recent diagnosis of pulmonary edema from [facility]. WIll request for notes from [place] ER. Reevaluation(s) Reevaluation #1: Patient O2 sat 88-90% on 4 liters. Patient placed on non-rebreather and now on 15 L with 93%. Patient is sleepy. Denies any history of COPD. Although notes from [place] was reviewed by me and receiving negative for D-dimer patient will be sent for repeat chest CT a. Patient had normal chest CT a [facility] but will repeat chest CT today to rule out PE. ABG ordered to rule out any CO2 retention. Patient may need to go on BiPAP if positive for CO2 retention. Patient protecting airway. EKG shows rate controlled atrial fibrillation. [facility] notes showed that patient had negative chest CT a and had a BNP of [address] reading of moderate pulmonary congestion on 03/07/21. Patient states he has never been on diuretic. Time: 15:22 Reevaluation #2: Restricted was unable to get ABG. VBG ordered. albuterol 7.5ml orderedr. On 4 L patient's O2 sat 90%. Pending chest CT results Time: 16:06 Reevaluation #3: Case discussed with respiratory therapist after VBG came back and shows patient was not retaining CO2. Recommend placing patient on high-flow oxygen. BiPAP cancel. Patient will go back for chest CTA as patient was not able to tolerate earlier. Time: 16:20 Additional Reevaluation(s): Patient accepted by for admissio nfor hypoxia due to Rhino virus induced asthma exacerbation. TOMAS positive for cocaine. Chest CTA negative. patient no longer sleepy and is watching television. Medical Decision Making MDM Narrative Medical decision making narrative: Asthma exacerbation. Positive rhino virus. Hypoxia. Lab Data Result diagrams: 03/14/21 12:41 03/14/21 12:41 Labs: Lab Results 03/14/21 03/14/21 03/14/21 Range/Units 12:41 12:41 12:41 WBC 9.8 (4.8-10.8) X10*3/uL RBC 5.04 (4.60-5.80) X10*6/uL Hgb 13.4 L D (14.0-18.0) g/dl Hct 41.5 L (42-52) % MCV 82.3 (80-98) fL MCH 26.6 L (27.0-33.0) pg MCHC 32.3 (31.0-36.0) g/dl RDW 15.9 (11.0-16.0) % Plt Count 267 (160-400) X10*3/uL MPV 9.9 (9.4-12.4) fL Immature Gran % (Auto) 0.3 (0.0-0.4) % Neut % (Auto) 68.7 (45-73) % Lymph % (Auto) 12.4 L (20-40) % [place] % (Auto) 6.7 (2-11) % Eos % (Auto) 11.3 H (0-4) % Baso % (Auto) 0.6 (0-2) % Lymph # (Auto) 1.2 (1.2-4.9) X10*3/uL [place] # (Auto) 0.7 (0.1-1.2) X10*3/uL Eos # (Auto) 1.1 H (0.0-0.4) X10*3/uL Baso # (Auto) 0.1 (0.0-0.2) X10*3/uL Abs Immat Gran (auto) 0.03 (0.00-0.03) X10*3/uL Absolute Neuts (auto) 6.7 (2.0-8.3) X10*3/uL Absolute Nucleated RBC 0.000 (0.0-0.012) X10*3/uL Nucleated RBC % (auto) 0.0 (0.0-0.2) /100WBC PT (9.9-13.0) SEC INR (0.9-1.1) APTT (24.1-38.0) SEC VBG pH (7.32-7.43) VBG pCO2 mmHg VBG pO2 mmHg VBG HCO3 (22-26) mmol/L VBG O2 Saturation % VBG Base Excess mmol/L Sodium 139 (135-145) mmol/L Potassium 4.3 (3.3-5.1) mmol/L Chloride 104 (96-108) mmol/L Carbon Dioxide 25 (22-29) mmol/L Anion Gap 14 (12-20) BUN 14 D (9-16) mg/dL Creatinine 0.80 (0.5-1.4) mg/dL Estim Creat Clear Calc 149.7 Estimated GFR > 60 Random Glucose 241 H (60-115) mg/dL Calcium 9.5 D (8.4-10.2) mg/dL Ferritin 43 (20-250) ng/mL Total Bilirubin 0.4 (0.0-1.0) mg/dL AST 16 (5-37) U/L ALT 13 (0-40) U/L Alkaline Phosphatase 158 H (39-117) U/L Lactate Dehydrogenase 236 (118-273) U/L Troponin I High Sens 16.1 (<3.5-35.0) ng/L B-Natriuretic Peptide 72 (<100) pg/mL Total Protein 6.5 (6.5-8.0) g/dL Albumin 3.4 L D (3.5-5.0) g/dL Procalcitonin ng/mL Urine Opiates Screen (Not Detect) Urine Fentanyl Screen (Not Detect) Ur Barbiturates Screen (Not Detect) Ur Phencyclidine Scrn (Not Detect) Ur Amphetamines Screen (Not Detect) U Benzodiazepines Scrn (Not Detect) Urine Cocaine Screen (Not Detect) U Marijuana (THC) Screen (Not Detect) Respiratory Panel Syed Adenovirus (Rapid PCR) (Not Detect.) B.pert (TEM-PCR) (Not Detect.) B.parapertussis DNA PCR (Not Detect.) C. pneumoniae DNA (PCR) (Not Detect.) Coronavirus (PCR) (Negative) Coronavirus OC43 (PCR) (Not Detect.) Coronavirus HKU1 (PCR) (Not Detect.) Coronavirus 229E (PCR) (Not Detect.) Coronavirus NL63 (PCR) (Not Detect.) Human Metapneumovir PCR (Not Detect.) Influenza A (RT-PCR) (Not Detect.) Influenza Type A (PCR) (Negative) Influenza B (RT-PCR) (Not Detect.) Influenza Type B (PCR) (Negative) M. pneumoniae (PCR) (Not Detect.) Parainfluenza 1 (PCR) (Not Detect.) Parainfluenza 2 (PCR) (Not Detect.) Parainfluenza 3 (PCR) (Not Detect.) Parainfluenza 4 (PCR) (Not Detect.) RSV (PCR) (Not Detect.) RSV RNA Qual (PCR) (Negative) Entero/Rhino (PCR) (Not Detect.) SARS-CoV-2 RNA (RT-PCR) (Not Detect.) 03/14/21 03/14/21 03/14/21 Range/Units 12:41 12:41 12:41 WBC (4.8-10.8) X10*3/uL RBC (4.60-5.80) X10*6/uL Hgb (14.0-18.0) g/dl Hct (42-52) % MCV (80-98) fL MCH (27.0-33.0) pg MCHC (31.0-36.0) g/dl RDW (11.0-16.0) % Plt Count (160-400) X10*3/uL MPV (9.4-12.4) fL Immature Gran % (Auto) (0.0-0.4) % Neut % (Auto) (45-73) % Lymph % (Auto) (20-40) % [place] % (Auto) (2-11) % Eos % (Auto) (0-4) % Baso % (Auto) (0-2) % Lymph # (Auto) (1.2-4.9) X10*3/uL [place] # (Auto) (0.1-1.2) X10*3/uL Eos # (Auto) (0.0-0.4) X10*3/uL Baso # (Auto) (0.0-0.2) X10*3/uL Abs Immat Gran (auto) (0.00-0.03) X10*3/uL Absolute Neuts (auto) (2.0-8.3) X10*3/uL Absolute Nucleated RBC (0.0-0.012) X10*3/uL Nucleated RBC % (auto) (0.0-0.2) /100WBC PT 13.5 H (9.9-13.0) SEC INR 1.2 H (0.9-1.1) APTT 38.5 H D (24.1-38.0) SEC VBG pH (7.32-7.43) VBG pCO2 mmHg VBG pO2 mmHg VBG HCO3 (22-26) mmol/L VBG O2 Saturation % VBG Base Excess mmol/L Sodium (135-145) mmol/L Potassium (3.3-5.1) mmol/L Chloride (96-108) mmol/L Carbon Dioxide (22-29) mmol/L Anion Gap (12-20) BUN (9-16) mg/dL Creatinine (0.5-1.4) mg/dL Estim Creat Clear Calc Estimated GFR Random Glucose (60-115) mg/dL Calcium (8.4-10.2) mg/dL Ferritin (20-250) ng/mL Total Bilirubin (0.0-1.0) mg/dL AST (5-37) U/L ALT (0-40) U/L Alkaline Phosphatase (39-117) U/L Lactate Dehydrogenase (118-273) U/L Troponin I High Sens (<3.5-35.0) ng/L B-Natriuretic Peptide (<100) pg/mL Total Protein (6.5-8.0) g/dL Albumin (3.5-5.0) g/dL Procalcitonin 0.08 ng/mL Urine Opiates Screen (Not Detect) Urine Fentanyl Screen (Not Detect) Ur Barbiturates Screen (Not Detect) Ur Phencyclidine Scrn (Not Detect) Ur Amphetamines Screen (Not Detect) U Benzodiazepines Scrn (Not Detect) Urine Cocaine Screen (Not Detect) U Marijuana (THC) Screen (Not Detect) Respiratory Panel Syed Adenovirus (Rapid PCR) (Not Detect.) B.pert (TEM-PCR) (Not Detect.) B.parapertussis DNA PCR (Not Detect.) C. pneumoniae DNA (PCR) (Not Detect.) Coronavirus (PCR) NEGATIVE (Negative) Coronavirus OC43 (PCR) (Not Detect.) Coronavirus HKU1 (PCR) (Not Detect.) Coronavirus 229E (PCR) (Not Detect.) Coronavirus NL63 (PCR) (Not Detect.) Human Metapneumovir PCR (Not Detect.) Influenza A (RT-PCR) (Not Detect.) Influenza Type A (PCR) NEGATIVE (Negative) Influenza B (RT-PCR) (Not Detect.) Influenza Type B (PCR) NEGATIVE (Negative) M. pneumoniae (PCR) (Not Detect.) Parainfluenza 1 (PCR) (Not Detect.) Parainfluenza 2 (PCR) (Not Detect.) Parainfluenza 3 (PCR) (Not Detect.) Parainfluenza 4 (PCR) (Not Detect.) RSV (PCR) (Not Detect.) RSV RNA Qual (PCR) NEGATIVE (Negative) Entero/Rhino (PCR) (Not Detect.) SARS-CoV-2 RNA (RT-PCR) (Not Detect.) 03/14/21 03/14/21 03/14/21 Range/Units 12:41 15:13 16:06 WBC (4.8-10.8) X10*3/uL RBC (4.60-5.80) X10*6/uL Hgb (14.0-18.0) g/dl Hct (42-52) % MCV (80-98) fL MCH (27.0-33.0) pg MCHC (31.0-36.0) g/dl RDW (11.0-16.0) % Plt Count (160-400) X10*3/uL MPV (9.4-12.4) fL Immature Gran % (Auto) (0.0-0.4) % Neut % (Auto) (45-73) % Lymph % (Auto) (20-40) % [place] % (Auto) (2-11) % Eos % (Auto) (0-4) % Baso % (Auto) (0-2) % Lymph # (Auto) (1.2-4.9) X10*3/uL [place] # (Auto) (0.1-1.2) X10*3/uL Eos # (Auto) (0.0-0.4) X10*3/uL Baso # (Auto) (0.0-0.2) X10*3/uL Abs Immat Gran (auto) (0.00-0.03) X10*3/uL Absolute Neuts (auto) (2.0-8.3) X10*3/uL Absolute Nucleated RBC (0.0-0.012) X10*3/uL Nucleated RBC % (auto) (0.0-0.2) /100WBC PT (9.9-13.0) SEC INR (0.9-1.1) APTT (24.1-38.0) SEC VBG pH (7.32-7.43) VBG pCO2 mmHg VBG pO2 mmHg VBG HCO3 (22-26) mmol/L VBG O2 Saturation % VBG Base Excess mmol/L Sodium (135-145) mmol/L Potassium (3.3-5.1) mmol/L Chloride (96-108) mmol/L Carbon Dioxide (22-29) mmol/L Anion Gap (12-20) BUN (9-16) mg/dL Creatinine (0.5-1.4) mg/dL Estim Creat Clear Calc Estimated GFR Random Glucose (60-115) mg/dL Calcium (8.4-10.2) mg/dL Ferritin (20-250) ng/mL Total Bilirubin (0.0-1.0) mg/dL AST (5-37) U/L ALT (0-40) U/L Alkaline Phosphatase (39-117) U/L Lactate Dehydrogenase (118-273) U/L Troponin I High Sens 16.1 (<3.5-35.0) ng/L B-Natriuretic Peptide (<100) pg/mL Total Protein (6.5-8.0) g/dL Albumin (3.5-5.0) g/dL Procalcitonin ng/mL Urine Opiates Screen Not Detected (Not Detect) Urine Fentanyl Screen Not Detected (Not Detect) Ur Barbiturates Screen Not Detected (Not Detect) Ur Phencyclidine Scrn Not Detected (Not Detect) Ur Amphetamines Screen Not Detected (Not Detect) U Benzodiazepines Scrn Not Detected (Not Detect) Urine Cocaine Screen POSITIVE H (Not Detect) U Marijuana (THC) Screen Not Detected (Not Detect) Respiratory Panel Syed See Note Adenovirus (Rapid PCR) Not Detected (Not Detect.) B.pert (TEM-PCR) Not Detected (Not Detect.) B.parapertussis DNA PCR Not Detected (Not Detect.) C. pneumoniae DNA (PCR) Not Detected (Not Detect.) Coronavirus (PCR) (Negative) Coronavirus OC43 (PCR) Not Detected (Not Detect.) Coronavirus HKU1 (PCR) Not Detected (Not Detect.) Coronavirus 229E (PCR) Not Detected (Not Detect.) Coronavirus NL63 (PCR) Not Detected (Not Detect.) Human Metapneumovir PCR Not Detected (Not Detect.) Influenza A (RT-PCR) Not Detected (Not Detect.) Influenza Type A (PCR) (Negative) Influenza B (RT-PCR) Not Detected (Not Detect.) Influenza Type B (PCR) (Negative) M. pneumoniae (PCR) Not Detected (Not Detect.) Parainfluenza 1 (PCR) Not Detected (Not Detect.) Parainfluenza 2 (PCR) Not Detected (Not Detect.) Parainfluenza 3 (PCR) Not Detected (Not Detect.) Parainfluenza 4 (PCR) Not Detected (Not Detect.) RSV (PCR) Not Detected (Not Detect.) RSV RNA Qual (PCR) (Negative) Entero/Rhino (PCR) Detected A (Not Detect.) SARS-CoV-2 RNA (RT-PCR) Not Detected (Not Detect.) 03/14/21 Range/Units 16:10 WBC (4.8-10.8) X10*3/uL RBC (4.60-5.80) X10*6/uL Hgb (14.0-18.0) g/dl Hct (42-52) % MCV (80-98) fL MCH (27.0-33.0) pg MCHC (31.0-36.0) g/dl RDW (11.0-16.0) % Plt Count (160-400) X10*3/uL MPV (9.4-12.4) fL Immature Gran % (Auto) (0.0-0.4) % Neut % (Auto) (45-73) % Lymph % (Auto) (20-40) % [place] % (Auto) (2-11) % Eos % (Auto) (0-4) % Baso % (Auto) (0-2) % Lymph # (Auto) (1.2-4.9) X10*3/uL [place] # (Auto) (0.1-1.2) X10*3/uL Eos # (Auto) (0.0-0.4) X10*3/uL Baso # (Auto) (0.0-0.2) X10*3/uL Abs Immat Gran (auto) (0.00-0.03) X10*3/uL Absolute Neuts (auto) (2.0-8.3) X10*3/uL Absolute Nucleated RBC (0.0-0.012) X10*3/uL Nucleated RBC % (auto) (0.0-0.2) /100WBC PT (9.9-13.0) SEC INR (0.9-1.1) APTT (24.1-38.0) SEC VBG pH 7.40 (7.32-7.43) VBG pCO2 37 mmHg VBG pO2 55 mmHg VBG HCO3 23 (22-26) mmol/L VBG O2 Saturation 79.0 % VBG Base Excess -1.0 mmol/L Sodium (135-145) mmol/L Potassium (3.3-5.1) mmol/L Chloride (96-108) mmol/L Carbon Dioxide (22-29) mmol/L Anion Gap (12-20) BUN (9-16) mg/dL Creatinine (0.5-1.4) mg/dL Estim Creat Clear Calc Estimated GFR Random Glucose (60-115) mg/dL Calcium (8.4-10.2) mg/dL Ferritin (20-250) ng/mL Total Bilirubin (0.0-1.0) mg/dL AST (5-37) U/L ALT (0-40) U/L Alkaline Phosphatase (39-117) U/L Lactate Dehydrogenase (118-273) U/L Troponin I High Sens (<3.5-35.0) ng/L B-Natriuretic Peptide (<100) pg/mL Total Protein (6.5-8.0) g/dL Albumin (3.5-5.0) g/dL Procalcitonin ng/mL Urine Opiates Screen (Not Detect) Urine Fentanyl Screen (Not Detect) Ur Barbiturates Screen (Not Detect) Ur Phencyclidine Scrn (Not Detect) Ur Amphetamines Screen (Not Detect) U Benzodiazepines Scrn (Not Detect) Urine Cocaine Screen (Not Detect) U Marijuana (THC) Screen (Not Detect) Respiratory Panel Syed Adenovirus (Rapid PCR) (Not Detect.) B.pert (TEM-PCR) (Not Detect.) B.parapertussis DNA PCR (Not Detect.) C. pneumoniae DNA (PCR) (Not Detect.) Coronavirus (PCR) (Negative) Coronavirus OC43 (PCR) (Not Detect.) Coronavirus HKU1 (PCR) (Not Detect.) Coronavirus 229E (PCR) (Not Detect.) Coronavirus NL63 (PCR) (Not Detect.) Human Metapneumovir PCR (Not Detect.) Influenza A (RT-PCR) (Not Detect.) Influenza Type A (PCR) (Negative) Influenza B (RT-PCR) (Not Detect.) Influenza Type B (PCR) (Negative) M. pneumoniae (PCR) (Not Detect.) Parainfluenza 1 (PCR) (Not Detect.) Parainfluenza 2 (PCR) (Not Detect.) Parainfluenza 3 (PCR) (Not Detect.) Parainfluenza 4 (PCR) (Not Detect.) RSV (PCR) (Not Detect.) RSV RNA Qual (PCR) (Negative) Entero/Rhino (PCR) (Not Detect.) SARS-CoV-2 RNA (RT-PCR) (Not Detect.) ECG Data Interpretation: Atrial fibrillation. Ventricular rate 83. QRS 90. QTC 448. Negative STEMI. Critical Care Time Critical Care Time Critical Care Time: Yes Total Critical Care Time: 60 Attestation: Hypoxia. ABG, cristi flox oxygen given. Chest CTA ordered Discharge Plan Discharge Clinical Impression: Asthma Patient Disposition: Admitted As Inpatient
[2021-03-14] MEDS: Albuterol/Iprat 2.5/0.5MG 3 ML AMPUL.NEB INHALE ×2 (12:59→21:43)
[2021-03-14 13:04] LABS: Alanine Aminotransferase 13 U/L (0-40); Albumin Level 3.4 g/dL (3.5-5.0); Alkaline Phosphatase 158 U/L (39-117); Anion Gap 14 (12-20); Aspartate Amino Transferase 16 U/L (5-37); Bilirubin Total 0.4 mg/dL (0.0-1.0); Blood Urea Nitrogen 14 mg/dL (9-16); Calcium 9.5 mg/dL (8.4-10.2); Carbon Dioxide 25 mmol/L (22-29); Chloride 104 mmol/L (96-108); Creatinine Clr Calc Pharmacy 149.7; Estimated Glomerular Filt Rate > 60; Glucose Random 241 mg/dL (60-115); Lactate Dehydrogenase 236 U/L (118-273); Potassium 4.3 mmol/L (3.3-5.1); Sodium 139 mmol/L (135-145); Total Protein 6.5 g/dL (6.5-8.0)
[2021-03-14 13:10] LABS: B Type Natriuretic Peptide 72 pg/mL (<100); Troponin-I High Sensitivity 16.1 ng/L (<3.5-35.0)
[2021-03-14] MEDS: Furosemide 40 MG/4 ML VIAL IVPUSH (13:15)
--- NOTE | 2021-03-14 13:18 | ECG_ITS ---
Test Reason : DYSPNEA Blood Pressure : / mmHG Vent. Rate : 083 BPM Atrial Rate : 178 BPM P-R Int : 000 ms QRS Dur : 090 ms QT Int : 382 ms P-R-T Axes : 000 -36 007 degrees QTc Int : 448 ms Atrial fibrillation with premature ventricular or aberrantly conducted complexes Left axis deviation Possible Anterior infarct , age undetermined Abnormal ECG When compared with ECG of 18-JAN-2021 14:48, No significant change was found Referred By: Juanjo Escoto Electronically Signed By:MARK JEFFERSON
[2021-03-14 13:25] LABS: Ferritin 43 ng/mL (20-250)
[2021-03-14 13:35] LABS: Adenovirus PCR Not Detected (Not Detect.); Bordetella parapertussis PCR Not Detected (Not Detect.); Bordetella pertussis PCR Not Detected (Not Detect.); Chlamydia pneumoniae PCR Not Detected (Not Detect.); Coronavirus 229E PCR Not Detected (Not Detect.); Coronavirus HKU1 PCR Not Detected (Not Detect.); Coronavirus NL63 PCR Not Detected (Not Detect.); Coronavirus OC43 PCR Not Detected (Not Detect.); Human metapneumovirus PCR Not Detected (Not Detect.); Influenza A PCR Not Detected (Not Detect.); Influenza B PCR Not Detected (Not Detect.); Mycoplasma pneumoniae PCR Not Detected (Not Detect.); Parainfluenza 1 PCR Not Detected (Not Detect.); Parainfluenza 2 PCR Not Detected (Not Detect.); Parainfluenza 3 PCR Not Detected (Not Detect.); Parainfluenza 4 PCR Not Detected (Not Detect.); RSV PCR Not Detected (Not Detect.); SARS-CoV-2 PCR Not Detected (Not Detect.)
[2021-03-14 13:36] LABS: Influenza A PCR NEGATIVE (Negative); Influenza B PCR NEGATIVE (Negative); Resp Syncy Virus RNA Qual PCR NEGATIVE (Negative); SARS COV2 PCR INHOUSE NEGATIVE (Negative)
[2021-03-14] MEDS: guaiFEN/Codeine SF 200/20/10ML 10 ML LIQUID PO (13:56)
[2021-03-14 14:37] LABS: Rhino/Enterovirus PCR Detected (Not Detect.)
[2021-03-14 15:04] LABS: Procalcitonin 0.08 ng/mL
[2021-03-14 15:31] LABS: Amphetamine Screen Urine Not Detected (Not Detect); Barbiturates, Urine Not Detected (Not Detect); Benzodiazepines Screen Urine Not Detected (Not Detect); Cannabinoid Screen Urine Not Detected (Not Detect); Cocaine Screen Urine POSITIVE (Not Detect); Fentanyl, urine Not Detected (Not Detect); Opiate Screen Urine Not Detected (Not Detect); Phencyclidine Screen Urine Not Detected (Not Detect)
[2021-03-14] MEDS: Albuterol Sulfate (0.083%) 2.5 MG/3 ML VIAL.NEB 7.5 MG INHALE (15:41)
[2021-03-14 16:15] LABS: VBG HCO3 23 mmol/L (22-26); VBG pCO2 37 mmHg; VBG pO2 55 mmHg
[2021-03-14 16:17] LABS: Venous Blood Gas Refer to POC result
[2021-03-14 16:38] LABS: Troponin-I High Sensitivity 16.1 ng/L (<3.5-35.0)
[2021-03-14] MEDS: iohexoL 350 MG/ML 100 ML INFUS..BTL IV (17:10)
--- NOTE | 2021-03-14 17:23 | P.HPHOSP_ITS ---
History of Present Illness Date of Service: 03/14/21 Attending physician on admission: Kylee Perez Chief Complaint: Shortness of breath This is a 61-year-old male with multiple medical problems who presents to the emergency department today with complaints of shortness of breath. Patient states that shortness of breath has been ongoing for the past 2-3 weeks. It has been constant but waxes and wanes. It is associated with a cough productive of white phlegm. He denies any recent sick contacts. He denies any associated fever or chills. He was recently seen at [facility] ED and was diagnosed with CHF exacerbation and given Lasix and albuterol inhaler. He is afebrile. Lab work shows no leukocytosis. BNP 75, troponins flat. No acute ischemic changes seen on EKG. He was noted to become hypoxic with oxygen saturation as low as 88% on room air is currently saturating around 90% on 7 L. His respiratory pathogen panel was positive for rhino virus. In the emergency depar tment he was treated with IV Lasix, Solu-Medrol, breathing treatment, IV magnesium. Patient was persistently hypoxic. His CTA of his chest was ordered, are pending at this time. Due to hypoxia who will be admitted to the hospital for further management. Review of Systems Review of Systems: Yes all other systems are reviewed and are negative Constitutional: Constitutional: Denies chills and Denies fever(s) Cardiovascular: Cardiovascular: Denies chest pain and Reports dyspnea Respiratory: Respiratory: Reports cough and Reports dyspnea Gastrointestinal: Gastrointestinal: Denies abdominal pain [facility] Medical History Asthma Depression with anxiety Diabetes mellitus Dyslipidemia Employs prosthetic leg Essential hypertension GERD (gastroesophageal reflux disease) History of heroin use Insomnia Obesity Functional capacity: independent ambulation Family History Father Medical history unknown Mother Diabetes Hypertension Stroke Brother No problems noted. Brother No problems noted. Son No problems noted. Daughter No problems noted. 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 Social History Housing: Apartment Alcohol intake: never Patient Tobacco Use Status: Former Tobacco user Tobacco use type: Cigarette e-Cigarette/Vaping Use: Never Used Second Hand Smoke Exposure: No Advance Directives: No Advance Directives Information Provided: No service: No Current occupational status: disabled Meds Allergies Allergy/AdvReac Type Severity Reaction Status Date / Time No Known Allergies Allergy Verified 12/02/20 10:39 Active Medications: Current Medications Pharmacy Consult (Consult Rx Perform Med Rec) 1 each MISCELLANE ONCE PRN PRN Reason: Consult order Home Medications Medication Instructions Recorded Confirmed Last Taken Type metformin 1,000 mg tablet 1,000 mg PO BID 03/17/20 01/22/21 Unknown History ferrous sulfate 325 mg (65 mg 325 mg PO DAILY 12/02/20 03/14/21 Unknown History iron) tablet furosemide 40 mg tablet 1 tab PO DAILY 03/14/21 03/14/21 Unknown History Physical Exam Vital Signs and Narrative: Vital Signs: Last Vital Signs Temp 98.0 F 03/14/21 16:23 Pulse 89 03/14/21 16:23 Resp 90 H 03/14/21 16:26 BP 109/48 L 03/14/21 16:23 Pulse Ox 95 03/14/21 16:23 Oxygen Flow Rate 2 03/14/21 11:52 Body Mass Index 36.5 Const: General: alert and awake Nutritional Appearance: well nourished and obese Orientation/consciousness: patient oriented x3 HENMT: Head: Yes normocephalic and Yes atraumatic Eyes: Sclerae: sclerae normal Chest: Chest palpation & inspection: normal inspection of the chest Resp: Other: tight with expiratory wheezing Effort & Inspection: tachypneic Cardio: Rate: regular rate Rhythm: regular rhythm GI: Palpation (GI): Soft to palpation and nontender Neuro: General: patient oriented x3 Cranial nerves: Yes CN's II-XII intact bilaterally and Yes Bilaterally intact EOM present Extrem: Other: s/p b/l BKA with prosthetic devices Results Labs CBC and Chem 7: 03/14/21 12:41 03/14/21 12:41 Labs: Laboratory Results - last 24 hr 09/26/21 09/26/21 09/26/21 12:41 12:41 12:41 MCV 82.3 MCH 26.6 L MCHC 32.3 RDW 15.9 Plt Count 267 MPV 9.9 Immature Gran % (Auto) 0.3 Neut % (Auto) 68.7 Lymph % (Auto) 12.4 L [place] % (Auto) 6.7 Eos % (Auto) 11.3 H Baso % (Auto) 0.6 Lymph # (Auto) 1.2 [place] # (Auto) 0.7 Eos # (Auto) 1.1 H Baso # (Auto) 0.1 Abs Immat Gran (auto) 0.03 Absolute Neuts (auto) 6.7 Absolute Nucleated RBC 0.000 Nucleated RBC % (auto) 0.0 PT INR APTT VBG pH VBG pCO2 VBG pO2 VBG HCO3 VBG O2 Saturation VBG Base Excess Anion Gap 14 Estim Creat Clear Calc 149.7 Estimated GFR > 60 Random Glucose 241 H Calcium 9.5 D Ferritin 43 Total Bilirubin 0.4 AST 16 ALT 13 Alkaline Phosphatase 158 H Lactate Dehydrogenase 236 Troponin I High Sens 16.1 B-Natriuretic Peptide 72 Total Protein 6.5 Albumin 3.4 L D Procalcitonin Urine Opiates Screen Urine Fentanyl Screen Ur Barbiturates Screen Ur Phencyclidine Scrn Ur Amphetamines Screen U Benzodiazepines Scrn Urine Cocaine Screen U Marijuana (THC) Screen Respiratory Panel Syed Adenovirus (Rapid PCR) B.pert (TEM-PCR) B.parapertussis DNA PCR C. pneumoniae DNA (PCR) Coronavirus (PCR) Coronavirus OC43 (PCR) Coronavirus HKU1 (PCR) Coronavirus 229E (PCR) Coronavirus NL63 (PCR) Human Metapneumovir PCR Influenza A (RT-PCR) Influenza Type A (PCR) Influenza B (RT-PCR) Influenza Type B (PCR) M. pneumoniae (PCR) Parainfluenza 1 (PCR) Parainfluenza 2 (PCR) Parainfluenza 3 (PCR) Parainfluenza 4 (PCR) RSV (PCR) RSV RNA Qual (PCR) Entero/Rhino (PCR) SARS-CoV-2 RNA (RT-PCR) 03/14/21 03/14/21 03/14/21 12:41 12:41 12:41 MCV MCH MCHC RDW Plt Count MPV Immature Gran % (Auto) Neut % (Auto) Lymph % (Auto) [place] % (Auto) Eos % (Auto) Baso % (Auto) Lymph # (Auto) [place] # (Auto) Eos # (Auto) Baso # (Auto) Abs Immat Gran (auto) Absolute Neuts (auto) Absolute Nucleated RBC Nucleated RBC % (auto) PT 13.5 H INR 1.2 H APTT 38.5 H D VBG pH VBG pCO2 VBG pO2 VBG HCO3 VBG O2 Saturation VBG Base Excess Anion Gap Estim Creat Clear Calc Estimated GFR Random Glucose Calcium Ferritin Total Bilirubin AST ALT Alkaline Phosphatase Lactate Dehydrogenase Troponin I High Sens B-Natriuretic Peptide Total Protein Albumin Procalcitonin 0.08 Urine Opiates Screen Urine Fentanyl Screen Ur Barbiturates Screen Ur Phencyclidine Scrn Ur Amphetamines Screen U Benzodiazepines Scrn Urine Cocaine Screen U Marijuana (THC) Screen Respiratory Panel Syed Adenovirus (Rapid PCR) B.pert (TEM-PCR) B.parapertussis DNA PCR C. pneumoniae DNA (PCR) Coronavirus (PCR) NEGATIVE Coronavirus OC43 (PCR) Coronavirus HKU1 (PCR) Coronavirus 229E (PCR) Coronavirus NL63 (PCR) Human Metapneumovir PCR Influenza A (RT-PCR) Influenza Type A (PCR) NEGATIVE Influenza B (RT-PCR) Influenza Type B (PCR) NEGATIVE M. pneumoniae (PCR) Parainfluenza 1 (PCR) Parainfluenza 2 (PCR) Parainfluenza 3 (PCR) Parainfluenza 4 (PCR) RSV (PCR) RSV RNA Qual (PCR) NEGATIVE Entero/Rhino (PCR) SARS-CoV-2 RNA (RT-PCR) 03/14/21 03/14/21 03/14/21 12:41 15:13 16:06 MCV MCH MCHC RDW Plt Count MPV Immature Gran % (Auto) Neut % (Auto) Lymph % (Auto) [place] % (Auto) Eos % (Auto) Baso % (Auto) Lymph # (Auto) [place] # (Auto) Eos # (Auto) Baso # (Auto) Abs Immat Gran (auto) Absolute Neuts (auto) Absolute Nucleated RBC Nucleated RBC % (auto) PT INR APTT VBG pH VBG pCO2 VBG pO2 VBG HCO3 VBG O2 Saturation VBG Base Excess Anion Gap Estim Creat Clear Calc Estimated GFR Random Glucose Calcium Ferritin Total Bilirubin AST ALT Alkaline Phosphatase Lactate Dehydrogenase Troponin I High Sens 16.1 B-Natriuretic Peptide Total Protein Albumin Procalcitonin Urine Opiates Screen Not Detected Urine Fentanyl Screen Not Detected Ur Barbiturates Screen Not Detected Ur Phencyclidine Scrn Not Detected Ur Amphetamines Screen Not Detected U Benzodiazepines Scrn Not Detected Urine Cocaine Screen POSITIVE H U Marijuana (THC) Screen Not Detected Respiratory Panel Syed See Note Adenovirus (Rapid PCR) Not Detected B.pert (TEM-PCR) Not Detected B.parapertussis DNA PCR Not Detected C. pneumoniae DNA (PCR) Not Detected Coronavirus (PCR) Coronavirus OC43 (PCR) Not Detected Coronavirus HKU1 (PCR) Not Detected Coronavirus 229E (PCR) Not Detected Coronavirus NL63 (PCR) Not Detected Human Metapneumovir PCR Not Detected Influenza A (RT-PCR) Not Detected Influenza Type A (PCR) Influenza B (RT-PCR) Not Detected Influenza Type B (PCR) M. pneumoniae (PCR) Not Detected Parainfluenza 1 (PCR) Not Detected Parainfluenza 2 (PCR) Not Detected Parainfluenza 3 (PCR) Not Detected Parainfluenza 4 (PCR) Not Detected RSV (PCR) Not Detected RSV RNA Qual (PCR) Entero/Rhino (PCR) Detected A SARS-CoV-2 RNA (RT-PCR) Not Detected 03/14/21 16:10 MCV MCH MCHC RDW Plt Count MPV Immature Gran % (Auto) Neut % (Auto) Lymph % (Auto) [place] % (Auto) Eos % (Auto) Baso % (Auto) Lymph # (Auto) [place] # (Auto) Eos # (Auto) Baso # (Auto) Abs Immat Gran (auto) Absolute Neuts (auto) Absolute Nucleated RBC Nucleated RBC % (auto) PT INR APTT VBG pH 7.40 VBG pCO2 37 VBG pO2 55 VBG HCO3 23 VBG O2 Saturation 79.0 VBG Base Excess -1.0 Anion Gap Estim Creat Clear Calc Estimated GFR Random Glucose Calcium Ferritin Total Bilirubin AST ALT Alkaline Phosphatase Lactate Dehydrogenase Troponin I High Sens B-Natriuretic Peptide Total Protein Albumin Procalcitonin Urine Opiates Screen Urine Fentanyl Screen Ur Barbiturates Screen Ur Phencyclidine Scrn Ur Amphetamines Screen U Benzodiazepines Scrn Urine Cocaine Screen U Marijuana (THC) Screen Respiratory Panel Syed Adenovirus (Rapid PCR) B.pert (TEM-PCR) B.parapertussis DNA PCR C. pneumoniae DNA (PCR) Coronavirus (PCR) Coronavirus OC43 (PCR) Coronavirus HKU1 (PCR) Coronavirus 229E (PCR) Coronavirus NL63 (PCR) Human Metapneumovir PCR Influenza A (RT-PCR) Influenza Type A (PCR) Influenza B (RT-PCR) Influenza Type B (PCR) M. pneumoniae (PCR) Parainfluenza 1 (PCR) Parainfluenza 2 (PCR) Parainfluenza 3 (PCR) Parainfluenza 4 (PCR) RSV (PCR) RSV RNA Qual (PCR) Entero/Rhino (PCR) SARS-CoV-2 RNA (RT-PCR) Imaging Radiologist's Impressions: Impressions Chest X-Ray 03/14/21 12:54 IMPRESSION: Mild increased pulmonary vascularity question mild congestion. No acute consolidation seen Assessment and Plan (1) Acute respiratory failure with hypoxia: Status: Acute (2) Rhinovirus: Status: Acute (3) Asthma: Status: Acute This is a 61-year-old male with history of diabetes, hypertension, dysli pidemia, atrial fibrillation on Eliquis, question CHF, PVD, opiate abuse on methadone who presents to the emergency department with 2-3 week history of increasing shortness of breath found to have acute asthma exacerbation and rhino virus positive Acute respiratory failure with hypoxia Asthma exacerbation secondary to rhino virus -IV Solu-Medrol -scheduled and as needed breathing treatments -supplemental oxygen as needed -follow up results of CTA although PE less likely given AC with eliquis History of atrial fibrillation Heart rate controlled Does not appear to be on any rate control med Continue anticoagulation with Eliquis Diabetes SSI, POCs Continue Lantus Trulicity non formulary, hold metformin HLD Continue statin Hypertension Continue lisinopril, Norvasc History of heart failure No previous echo in system No acute exacerbation BNP 72 Continue home dose of Lasix History of opiate use disorder Continue home dose of methadone in a.m. once dose has been confirmed GERD Continue PPI Anxiety Continue Ativan Obesity BMI 36.5 dvt ppx - eliquis code status - full code Quality Stroke Does the patient have a stroke diagnosis?: No VTE Prior VTE?: No VTE Risk Level:: Medical - moderate - high VTE Device Contraindication: Treatment Not Indicated VTE Drug Contraindication: N/A - Med Ordered
--- NOTE | 2021-03-14 19:57 | PC.NURSE ---
R assumed care at 1900. Pt alert ad oriented x4, calm and cooperative. Pt denies pain. Pt states SOB has improved, does not appar to be in distress at this time. Pt complains of intermittent cough, non-productive. Pt remains on high flow nasal cannula O2 sat at 96%. Pt denies chest pain. Pt aware of being admitted and waiting for bed at this time. Call serrano in reach. IV intact. Vitals stable. Pt resting in stretcher calmly at this time, will continue to monitor.
--- NOTE | 2021-03-14 20:05 | PC.NURSE ---
Call [facility] for report, waiting for call back from ANSON Perez.
--- NOTE | 2021-03-14 20:41 | PC.NURSE ---
Pt taken off high flow NC and placed on 3 liters nasal cannula and tolerating well with O2 sat at 94% at this time. Report give to ANSON Edwards.
[2021-03-14 21:08] LABS: Glucose, Whole Blood 269 mg/dL (60-115)
[2021-03-14] MEDS: Apixaban 5 MG TABLET PO (21:51)
[2021-03-14] MEDS: methylPREDNISolone Sod Succ 40 MG/ML VIAL IVPUSH (21:51)
[2021-03-14] MEDS: Insulin Lispro 100 UNIT/ML 3 ML VIAL SUBCUT (21:51)
[2021-03-14] MEDS: Insulin Glargine,Hum.rec.anlog 100 UNIT/ML 10 ML VIAL 65 UNIT SUBCUT (21:55)
[2021-03-14] MEDS: 0.9 % Sodium Chloride Flush 3 ML SYRINGE IVFLUSH (21:56)
--- NOTE | 2021-03-14 21:56 | PC.NURSE ---
Patient reported that he takes Methadone everyday from the clinic : [address] [place] [address]
[2021-03-14] MEDS: guaiFENesin DM 100/10/5 ML 5 ML SYRUP PO (22:16)
[2021-03-15] VITALS (11 sets, daily range): BP systolic 102–141; BP diastolic 47–86; PULSE 76–94; RESP 18–19; TEMP 36.2–37; O2SAT 94–97
[2021-03-15 06:29] LABS: MANUAL DIFF FLAG NO
[2021-03-15 06:54] LABS: Anion Gap 15 (12-20); Blood Urea Nitrogen 26 mg/dL (9-16); Calcium 8.6 mg/dL (8.4-10.2); Carbon Dioxide 22 mmol/L (22-29); Chloride 103 mmol/L (96-108); Creatinine Clr Calc Pharmacy 134.6; Estimated Glomerular Filt Rate > 60; Glucose Random 320 mg/dL (60-115); Potassium 4.5 mmol/L (3.3-5.1); Sodium 135 mmol/L (135-145)
[2021-03-15 07:00] LABS: Basophils Percent Auto 0.1 % (0-2); Hematocrit 37.6 % (42-52); Hemoglobin 12.2 g/dl (14.0-18.0); Imm Gran Abs Auto 0.03 X10*3/uL (0.00-0.03); Imm Gran Pct Auto 0.4 % (0.0-0.4); Lymphocytes Absolute Auto 0.7 X10*3/uL (1.2-4.9); Lymphocytes Percent Auto 8.8 % (20-40); Mean Corpuscular HGB Conc 32.4 g/dl (31.0-36.0); Mean Corpuscular Hemoglobin 26.6 pg (27.0-33.0); Mean Corpuscular Volume 82.1 fL (80-98); Mean Platelet Volume 10.5 fL (9.4-12.4); Monocytes Absolute Auto 0.2 X10*3/uL (0.1-1.2); Monocytes Percent Auto 2.6 % (2-11); Neutrophils Absolute Auto 7.1 X10*3/uL (2.0-8.3); Neutrophils Percent Auto 88.1 % (45-73); Platelet Count 293 X10*3/uL (160-400); Red Blood Count 4.58 X10*6/uL (4.60-5.80); Red Cell Distribution Width 15.8 % (11.0-16.0)
[2021-03-15 07:34] LABS: Glucose, Whole Blood 285 mg/dL (60-115)
[2021-03-15] MEDS: Furosemide 40 MG TABLET PO (08:40)
[2021-03-15] MEDS: Insulin Lispro 100 UNIT/ML 3 ML VIAL SUBCUT ×4 (08:41→20:11)
[2021-03-15] MEDS: amLODIPine Besylate 10 MG TABLET PO (08:42)
[2021-03-15] MEDS: 0.9 % Sodium Chloride Flush 3 ML SYRINGE IVFLUSH ×3 (08:42→20:12)
[2021-03-15] MEDS: Apixaban 5 MG TABLET PO ×2 (08:42→20:11)
[2021-03-15] MEDS: lisinopriL 10 MG TABLET 30 MG PO (08:43)
[2021-03-15] MEDS: Cholecalciferol (Vitamin D3) 25 MCG TABLET PO (08:44)
[2021-03-15] MEDS: Atorvastatin Calcium 80 MG TABLET PO (08:44)
[2021-03-15] MEDS: methylPREDNISolone Sod Succ 40 MG/ML VIAL IVPUSH ×2 (08:44→20:11)
--- NOTE | 2021-03-15 09:31 | MHC.CM.PN ---
met with pt who reprots having vna 1 x weekly in his home he says elizabeth from [facility] and he wants to switch ageceny to [facility] referral will ne made pt has own transportaion home
[2021-03-15] MEDS: Albuterol/Iprat 2.5/0.5MG 3 ML AMPUL.NEB INHALE ×3 (09:50→19:14)
[2021-03-15] MEDS: methADONE HCl 20 MG/2 ML ORAL.CONC PO (11:33)
[2021-03-15] MEDS: guaiFENesin DM 100/10/5 ML 5 ML SYRUP PO ×2 (11:33→23:07)
[2021-03-15 11:36] LABS: Glucose, Whole Blood 313 mg/dL (60-115)
--- NOTE | 2021-03-15 12:43 | P.PNIM_ITS ---
Subjective Subjective Date of Service: 03/15/21 Interval History: cc: sob interval history: was severely sob yesterday, required high flow, now much better, though still weak and a bit sob, on room air Cardiovascular Cardiovascular: Reports no additional cardiovascular complaints Genitourinary Genitourinary: Reports no additional male genitourinary complaints Physical Exam Vital Signs: Vital Signs: Last Vital Signs Temp 97.2 F 03/15/21 08:00 Pulse 80 03/15/21 09:50 Resp 19 03/15/21 08:00 BP 138/86 03/15/21 08:43 Pulse Ox 95 03/15/21 08:00 Oxygen Flow Rate 2 03/14/21 11:52 Body Mass Index 36.5 General: AO X 3, no acute distress Resp: diminished bilateral, no accessory muscles used CVS: S1,S2,RRR GI: soft, non tender, non distended Neuro: motor grossly intact, alert Psych: appropriate affect, appropriate insight bilateral bka Objective Data Active Medications Acetaminophen (Acetaminophen 325 Mg Tablet) 650 mg PO Q6H PRN PRN Reason: Pain, Mild (Pain Scale 1-3) Albuterol Sulfate (Albuterol Sulfate (0.083%) 2.5 Mg/3 Ml Vial.Neb) 2.5 mg INHALE Q4H PRN PRN Reason: Shortness of Breath Albuterol/Ipratropium (Albuterol/Iprat 2.5/0.5mg 3 Ml Ampul.Neb) 3 ml INHALE RQ6H WHILE AWAKE [facility] Last Admin: 03/15/21 09:50 Dose: 3 ml Documented by: SINDY Amlodipine Besylate (Amlodipine Besylate 10 Mg Tablet) 10 mg PO DAILY [facility]; Prot ocol Last Admin: 03/15/21 08:42 Dose: 10 mg Documented by: LEIGH Apixaban (Apixaban 5 Mg Tablet) 5 mg PO BID [facility] Last Admin: 03/15/21 08:42 Dose: 5 mg Documented by: LEIGH Atorvastatin Calcium (Atorvastatin Calcium 80 Mg Tablet) 80 mg PO DAILY [facility] Last Admin: 03/15/21 08:44 Dose: 80 mg Documented by: LEIGH Dextrose (Dextrose 50 % 25 Gm/50 Ml Vial) 25 gm IVPUSH Q15M PRN; Protocol PRN Reason: per Hypoglycemia Standing Ord. Docusate Sodium (Docusate Sodium 100 Mg Capsule) 100 mg PO DAILY PRN PRN Reason: Constipation Furosemide (Furosemide 40 Mg Tablet) 40 mg PO DAILY [facility]; Protocol Last Admin: 03/15/21 08:40 Dose: 40 mg Documented by: LEIGH Glucose (Glucose Gel 15 Gm Gel..Gram.) 15 gm PO Q15M PRN; Protocol PRN Reason: per Hypoglycemia Standing Ord. Guaifenesin/Dextromethorphan (Guaifenesin Dm 100/10/5 Ml 5 Ml Syrup) 5 ml PO Q4H PRN PRN Reason: cough Last Admin: 03/15/21 11:33 Dose: 5 ml Documented by: JIMMY Insulin Glargine (Insulin Glargine,Hum.Rec.Anlog 100 Unit/Ml 10 Ml Vial) 65 unit SUBCUT BEDTIME [facility] Last Admin: 03/14/21 21:55 Dose: 65 unit Documented by: TIFFANIE Insulin Human Lispro (Insulin Lispro 100 Unit/Ml 3 Ml Vial) 0 unit SUBCUT QIDACHS [facility]; Protocol Last Admin: 03/15/21 11:33 Dose: 8 unit Documented by: JIMMY Lisinopril (Lisinopril 10 Mg Tablet) 30 mg PO DAILY [facility]; Protocol Last Admin: 03/15/21 08:43 Dose: 30 mg Documented by: LEIGH Lorazepam (Lorazepam 1 Mg Tablet) 1 mg PO BID PRN PRN Reason: agitation Methadone HCl (Methadone Hcl 20 Mg/2 Ml Oral.Conc) 20 mg PO DAILY [facility] Last Admin: 03/15/21 11:33 Dose: 20 mg Documented by: JIMMY Methylprednisolone Sodium Succinate (Methylprednisolone Sod Succ 40 Mg/Ml Vial) 40 mg IVPUSH BID [facility] Last Admin: 03/15/21 08:44 Dose: 40 mg Documented by: LEIGH Ondansetron HCl (Ondansetron Hcl 4 Mg/2 Ml Vial) 4 mg IVPUSH Q8H PRN PRN Reason: Nausea and Vomiting Sodium Chloride (0.9 % Sodium Chloride Flush 3 Ml Syringe) 3 ml IVFLUSH QSHIFT [facility] Last Admin: 03/15/21 08:42 Dose: 3 ml Documented by: LEIGH Vitamin D (Cholecalciferol (Vitamin D3) 25 Mcg Tablet) 25 mcg PO DAILY [facility] Last Admin: 03/15/21 08:44 Dose: 25 mcg Documented by: LEIGH Labs CBC & Chem 7: 03/15/21 05:51 03/15/21 05:51 Labs: Laboratory Results - last 24 hr 03/14/21 03/14/21 03/14/21 12:41 12:41 12:41 MCV 82.3 MCH 26.6 L MCHC 32.3 RDW 15.9 Plt Count 267 MPV 9.9 Immature Gran % (Auto) 0.3 Neut % (Auto) 68.7 Lymph % (Auto) 12.4 L [place] % (Auto) 6.7 Eos % (Auto) 11.3 H Baso % (Auto) 0.6 Lymph # (Auto) 1.2 [place] # (Auto) 0.7 Eos # (Auto) 1.1 H Baso # (Auto) 0.1 Abs Immat Gran (auto) 0.03 Absolute Neuts (auto) 6.7 Absolute Nucleated RBC 0.000 Nucleated RBC % (auto) 0.0 PT INR APTT VBG pH VBG pCO2 VBG pO2 VBG HCO3 VBG O2 Saturation VBG Base Excess Anion Gap 14 Estim Creat Clear Calc 149.7 Estimated GFR > 60 POC Glucose Random Glucose 241 H Calcium 9.5 D Ferritin 43 Total Bilirubin 0.4 AST 16 ALT 13 Alkaline Phosphatase 158 H Lactate Dehydrogenase 236 Troponin I High Sens 16.1 B-Natriuretic Peptide 72 Total Protein 6.5 Albumin 3.4 L D Procalcitonin Urine Opiates Screen Urine Fentanyl Screen Ur Barbiturates Screen Ur Phencyclidine Scrn Ur Amphetamines Screen U Benzodiazepines Scrn Urine Cocaine Screen U Marijuana (THC) Screen Respiratory Panel Syed Adenovirus (Rapid PCR) B.pert (TEM-PCR) B.parapertussis DNA PCR C. pneumoniae DNA (PCR) Coronavirus (PCR) Coronavirus OC43 (PCR) Coronavirus HKU1 (PCR) Coronavirus 229E (PCR) Coronavirus NL63 (PCR) Human Metapneumovir PCR Influenza A (RT-PCR) Influenza Type A (PCR) Influenza B (RT-PCR) Influenza Type B (PCR) M. pneumoniae (PCR) Parainfluenza 1 (PCR) Parainfluenza 2 (PCR) Parainfluenza 3 (PCR) Parainfluenza 4 (PCR) RSV (PCR) RSV RNA Qual (PCR) Entero/Rhino (PCR) SARS-CoV-2 RNA (RT-PCR) 03/14/21 03/14/21 03/14/21 12:41 12:41 12:41 MCV MCH MCHC RDW Plt Count MPV Immature Gran % (Auto) Neut % (Auto) Lymph % (Auto) [place] % (Auto) Eos % (Auto) Baso % (Auto) Lymph # (Auto) [place] # (Auto) Eos # (Auto) Baso # (Auto) Abs Immat Gran (auto) Absolute Neuts (auto) Absolute Nucleated RBC Nucleated RBC % (auto) PT 13.5 H INR 1.2 H APTT 38.5 H D VBG pH VBG pCO2 VBG pO2 VBG HCO3 VBG O2 Saturation VBG Base Excess Anion Gap Estim Creat Clear Calc Estimated GFR POC Glucose Random Glucose Calcium Ferritin Total Bilirubin AST ALT Alkaline Phosphatase Lactate Dehydrogenase Troponin I High Sens B-Natriuretic Peptide Total Protein Albumin Procalcitonin 0.08 Urine Opiates Screen Urine Fentanyl Screen Ur Barbiturates Screen Ur Phencyclidine Scrn Ur Amphetamines Screen U Benzodiazepines Scrn Urine Cocaine Screen U Marijuana (THC) Screen Respiratory Panel Syed Adenovirus (Rapid PCR) B.pert (TEM-PCR) B.parapertussis DNA PCR C. pneumoniae DNA (PCR) Coronavirus (PCR) NEGATIVE Coronavirus OC43 (PCR) Coronavirus HKU1 (PCR) Coronavirus 229E (PCR) Coronavirus NL63 (PCR) Human Metapneumovir PCR Influenza A (RT-PCR) Influenza Type A (PCR) NEGATIVE Influenza B (RT-PCR) Influenza Type B (PCR) NEGATIVE M. pneumoniae (PCR) Parainfluenza 1 (PCR) Parainfluenza 2 (PCR) Parainfluenza 3 (PCR) Parainfluenza 4 (PCR) RSV (PCR) RSV RNA Qual (PCR) NEGATIVE Entero/Rhino (PCR) SARS-CoV-2 RNA (RT-PCR) 03/14/21 03/14/21 03/14/21 12:41 15:13 16:06 MCV MCH MCHC RDW Plt Count MPV Immature Gran % (Auto) Neut % (Auto) Lymph % (Auto) [place] % (Auto) Eos % (Auto) Baso % (Auto) Lymph # (Auto) [place] # (Auto) Eos # (Auto) Baso # (Auto) Abs Immat Gran (auto) Absolute Neuts (auto) Absolute Nucleated RBC Nucleated RBC % (auto) PT INR APTT VBG pH VBG pCO2 VBG pO2 VBG HCO3 VBG O2 Saturation VBG Base Excess Anion Gap Estim Creat Clear Calc Estimated GFR POC Glucose Random Glucose Calcium Ferritin Total Bilirubin AST ALT Alkaline Phosphatase Lactate Dehydrogenase Troponin I High Sens 16.1 B-Natriuretic Peptide Total Protein Albumin Procalcitonin Urine Opiates Screen Not Detected Urine Fentanyl Screen Not Detected Ur Barbiturates Screen Not Detected Ur Phencyclidine Scrn Not Detected Ur Amphetamines Screen Not Detected U Benzodiazepines Scrn Not Detected Urine Cocaine Screen POSITIVE H U Marijuana (THC) Screen Not Detected Respiratory Panel Syed See Note Adenovirus (Rapid PCR) Not Detected B.pert (TEM-PCR) Not Detected B.parapertussis DNA PCR Not Detected C. pneumoniae DNA (PCR) Not Detected Coronavirus (PCR) Coronavirus OC43 (PCR) Not Detected Coronavirus HKU1 (PCR) Not Detected Coronavirus 229E (PCR) Not Detected Coronavirus NL63 (PCR) Not Detected Human Metapneumovir PCR Not Detected Influenza A (RT-PCR) Not Detected Influenza Type A (PCR) Influenza B (RT-PCR) Not Detected Influenza Type B (PCR) M. pneumoniae (PCR) Not Detected Parainfluenza 1 (PCR) Not Detected Parainfluenza 2 (PCR) Not Detected Parainfluenza 3 (PCR) Not Detected Parainfluenza 4 (PCR) Not Detected RSV (PCR) Not Detected RSV RNA Qual (PCR) Entero/Rhino (PCR) Detected A SARS-CoV-2 RNA (RT-PCR) Not Detected 03/14/21 03/14/21 03/15/21 16:10 21:03 05:51 MCV 82.1 MCH 26.6 L MCHC 32.4 RDW 15.8 Plt Count 293 MPV 10.5 Immature Gran % (Auto) 0.4 Neut % (Auto) 88.1 H Lymph % (Auto) 8.8 L [place] % (Auto) 2.6 Eos % (Auto) 0.0 Baso % (Auto) 0.1 Lymph # (Auto) 0.7 L [place] # (Auto) 0.2 Eos # (Auto) 0.0 Baso # (Auto) 0.0 Abs Immat Gran (auto) 0.03 Absolute Neuts (auto) 7.1 Absolute Nucleated RBC 0.000 Nucleated RBC % (auto) 0.0 PT INR APTT VBG pH 7.40 VBG pCO2 37 VBG pO2 55 VBG HCO3 23 VBG O2 Saturation 79.0 VBG Base Excess -1.0 Anion Gap Estim Creat Clear Calc Estimated GFR POC Glucose 269 H Random Glucose Calcium Ferritin Total Bilirubin AST ALT Alkaline Phosphatase Lactate Dehydrogenase Troponin I High Sens B-Natriuretic Peptide Total Protein Albumin Procalcitonin Urine Opiates Screen Urine Fentanyl Screen Ur Barbiturates Screen Ur Phencyclidine Scrn Ur Amphetamines Screen U Benzodiazepines Scrn Urine Cocaine Screen U Marijuana (THC) Screen Respiratory Panel Syed Adenovirus (Rapid PCR) B.pert (TEM-PCR) B.parapertussis DNA PCR C. pneumoniae DNA (PCR) Coronavirus (PCR) Coronavirus OC43 (PCR) Coronavirus HKU1 (PCR) Coronavirus 229E (PCR) Coronavirus NL63 (PCR) Human Metapneumovir PCR Influenza A (RT-PCR) Influenza Type A (PCR) Influenza B (RT-PCR) Influenza Type B (PCR) M. pneumoniae (PCR) Parainfluenza 1 (PCR) Parainfluenza 2 (PCR) Parainfluenza 3 (PCR) Parainfluenza 4 (PCR) RSV (PCR) RSV RNA Qual (PCR) Entero/Rhino (PCR) SARS-CoV-2 RNA (RT-PCR) 03/15/21 03/15/21 03/15/21 05:51 07:25 11:19 MCV MCH MCHC RDW Plt Count MPV Immature Gran % (Auto) Neut % (Auto) Lymph % (Auto) [place] % (Auto) Eos % (Auto) Baso % (Auto) Lymph # (Auto) [place] # (Auto) Eos # (Auto) Baso # (Auto) Abs Immat Gran (auto) Absolute Neuts (auto) Absolute Nucleated RBC Nucleated RBC % (auto) PT INR APTT VBG pH VBG pCO2 VBG pO2 VBG HCO3 VBG O2 Saturation VBG Base Excess Anion Gap 15 Estim Creat Clear Calc 134.6 Estimated GFR > 60 POC Glucose 285 H 313 H Random Glucose 320 H Calcium 8.6 D Ferritin Total Bilirubin AST ALT Alkaline Phosphatase Lactate Dehydrogenase Troponin I High Sens B-Natriuretic Peptide Total Protein Albumin Procalcitonin Urine Opiates Screen Urine Fentanyl Screen Ur Barbiturates Screen Ur Phencyclidine Scrn Ur Amphetamines Screen U Benzodiazepines Scrn Urine Cocaine Screen U Marijuana (THC) Screen Respiratory Panel Syed Adenovirus (Rapid PCR) B.pert (TEM-PCR) B.parapertussis DNA PCR C. pneumoniae DNA (PCR) Coronavirus (PCR) Coronavirus OC43 (PCR) Coronavirus HKU1 (PCR) Coronavirus 229E (PCR) Coronavirus NL63 (PCR) Human Metapneumovir PCR Influenza A (RT-PCR) Influenza Type A (PCR) Influenza B (RT-PCR) Influenza Type B (PCR) M. pneumoniae (PCR) Parainfluenza 1 (PCR) Parainfluenza 2 (PCR) Parainfluenza 3 (PCR) Parainfluenza 4 (PCR) RSV (PCR) RSV RNA Qual (PCR) Entero/Rhino (PCR) SARS-CoV-2 RNA (RT-PCR) Assessment and Plan (1) Acute respiratory failure with hypoxia: Status: Acute (2) Rhinovirus: Status: Acute (3) Chronic atrial fibrillation: Status: Acute (4) Diabetes mellitus: Status: Acute Assessment and Plan: ? This is a 61-year-old male with history of diabetes, hypertension, dyslipidemia, atrial fibrillation on Eliquis, question CHF, PVD, opiate abuse on methadone who presents to the emergency department with 2-3 week history of increasing shortness of breath found to have acute asthma exacerbation and rhino virus positive Acute respiratory failure with hypoxia complicated by Asthma exacerbation secondary to rhino virus -IV Solu-Medrol -scheduled and as needed breathing treatments -supplemental oxygen as needed cta negative for pe chronic atrial fibrillation Heart rate controlled Does not appear to be on any rate control med Continue anticoagulation with Eliquis Diabetes SSI, POCs Continue Lantus Trulicity non formulary, hold metformin HLD Continue statin Hypertension Continue lisinopril, Norvasc, monitor History of heart failure No previous echo in system No acute exacerbation BNP 72 Continue home dose of Lasix History of opiate use disorder methadone 20 mg daily GERD Continue PPI Anxiety Continue Ativan Obesity BMI 36.5, weight loss dvt ppx - eliquis Quality Stroke Does the patient have a stroke diagnosis?: No VTE Prior VTE?: No VTE Risk Level:: Medical - moderate - high VTE Device Contraindication: Treatment Not Indicated VTE Drug Contraindication: N/A - Med Ordered
[2021-03-15 17:07] LABS: Glucose, Whole Blood 316 mg/dL (60-115)
[2021-03-15 19:48] LABS: Glucose, Whole Blood 309 mg/dL (60-115)
[2021-03-15] MEDS: Insulin Glargine,Hum.rec.anlog 100 UNIT/ML 10 ML VIAL 65 UNIT SUBCUT (20:11)
[2021-03-16] VITALS (12 sets, daily range): BP systolic 117–144; BP diastolic 56–83; PULSE 78–92; RESP 14–18; TEMP 36.1–36.9; O2SAT 92–98
--- NOTE | 2021-03-16 | ECG_ITS ---
Test Reason : CP Blood Pressure : / mmHG Vent. Rate : 083 BPM Atrial Rate : 075 BPM P-R Int : 000 ms QRS Dur : 098 ms QT Int : 392 ms P-R-T Axes : 000 -37 009 degrees QTc Int : 460 ms Atrial fibrillation with premature ventricular or aberrantly conducted complexes Left axis deviation Nonspecific T wave abnormality Prolonged QT Abnormal ECG When compared with ECG of 14-MAR-2021 14:04, No significant change was found Referred By: Jose Biggs Electronically Signed By:MARK JEFFERSON
[2021-03-16] MEDS: 0.9 % Sodium Chloride Flush 3 ML SYRINGE IVFLUSH ×3 (07:26→20:45)
[2021-03-16 07:34] LABS: Glucose, Whole Blood 334 mg/dL (60-115)
[2021-03-16] MEDS: Albuterol/Iprat 2.5/0.5MG 3 ML AMPUL.NEB INHALE ×3 (07:36→19:14)
[2021-03-16] MEDS: Insulin Lispro 100 UNIT/ML 3 ML VIAL SUBCUT ×4 (07:41→21:50)
[2021-03-16] MEDS: amLODIPine Besylate 10 MG TABLET PO (08:56)
[2021-03-16] MEDS: Cholecalciferol (Vitamin D3) 25 MCG TABLET PO (08:56)
[2021-03-16] MEDS: Atorvastatin Calcium 80 MG TABLET PO (08:57)
[2021-03-16] MEDS: Furosemide 40 MG TABLET PO (08:57)
[2021-03-16] MEDS: lisinopriL 10 MG TABLET 30 MG PO (08:57)
[2021-03-16] MEDS: Apixaban 5 MG TABLET PO ×2 (08:57→20:45)
[2021-03-16] MEDS: Acetaminophen 325 MG TABLET 650 MG PO (08:57)
[2021-03-16] MEDS: methADONE HCl 20 MG/2 ML ORAL.CONC PO (09:06)
[2021-03-16] MEDS: guaiFENesin DM 100/10/5 ML 5 ML SYRUP PO ×3 (09:54→20:45)
[2021-03-16] MEDS: methylPREDNISolone Sod Succ 40 MG/ML VIAL IVPUSH ×2 (09:54→20:45)
--- NOTE | 2021-03-16 10:17 | HO.PM.IMPN ---
Subjective Subjective Date of Service: 03/16/21 Interval History: cc: sob interval history: chest pain, sob Cardiovascular Cardiovascular: Reports no additional cardiovascular complaints Gastrointestinal Gastrointestinal: Reports no additional gastrointestinal complaints Physical Exam Vital Signs: Vital Signs: Last Vital Signs Temp 97.5 F 03/16/21 07:25 Pulse 81 03/16/21 09:17 Resp 18 03/16/21 09:17 BP 144/83 H 03/16/21 09:17 Pulse Ox 98 03/16/21 09:17 Oxygen Flow Rate 2 03/14/21 11:52 Body Mass Index 36.5 General: AO X 3, no acute distress Resp:? diminished bilateral, no accessory muscles used CVS: S1,S2,RRR GI: soft, non tender, non distended Neuro:? motor grossly intact, alert Psych: appropriate affect, appropriate insight? bilateral bka chest: tenderness to palpation Objective Data Active Medications Acetaminophen (Acetaminophen 325 Mg Tablet) 650 mg PO Q6H PRN PRN Reason: Pain, Mild (Pain Scale 1-3) Last Admin: 03/16/21 08:57 Dose: 650 mg Documented by: TALI Albuterol Sulfate (Albuterol Sulfate (0.083%) 2.5 Mg/3 Ml Vial.Neb) 2.5 mg INHALE Q4H PRN PRN Reason: Shortness of Breath Albuterol/Ipratropium (Albuterol/Iprat 2.5/0.5mg 3 Ml Ampul.Neb) 3 ml INHALE RQ6H WHILE AWAKE COUNTS [facility]CLUDE 234 BEDS AT [facility] Last Admin: 03/16/21 07:36 Dose: 3 ml Documented by: LENARD Amlodipine Besylate (Amlodipine Besylate 10 Mg Tablet) 10 mg PO DAILY [facility] 234 BEDS AT [facility]; Protocol Last Admin: 03/16/21 08:56 Dose: 10 mg Documented by: TALI Apixaban (Apixaban 5 Mg Tablet) 5 mg PO BID [facility]S [facility]CLUDE 234 BEDS AT [facility] Last Admin: 03/16/21 08:57 Dose: 5 mg Documented by: TALI Atorvastatin Calcium (Atorvastatin Calcium 80 Mg Tablet) 80 mg PO DAILY [facility]CLUDE 234 BEDS AT [facility] Last Admin: 03/16/21 08:57 Dose: 80 mg Documented by: TALI Dextrose (Dextrose 50 % 25 Gm/50 Ml Vial) 25 gm IVPUSH Q15M PRN; Protocol PRN Reason: per Hypoglycemia Standing Ord. Docusate Sodium (Docusate Sodium 100 Mg Capsule) 100 mg PO DAILY PRN PRN Reason: Constipation Furosemide (Furosemide 40 Mg Tablet) 40 mg PO DAILY [facility]CLUDE 234 BEDS AT [facility]; Protocol Last Admin: 03/16/21 08:57 Dose: 40 mg Documented by: TALI Glucose (Glucose Gel 15 Gm Gel..Gram.) 15 gm PO Q15M PRN; Protocol PRN Reason: per Hypoglycemia Standing Ord. Guaifenesin (Guaifenesin 200 Mg/10 Ml 10 Ml Liquid) 10 ml PO Q4H PRN PRN Reason: cough Guaifenesin/Dextromethorphan (Guaifenesin Dm 100/10/5 Ml 5 Ml Syrup) 5 ml PO Q4H PRN PRN Reason: cough Last Admin: 03/16/21 09:54 Dose: 5 ml Documented by: TALI Insulin Glargine (Insulin Glargine,Hum.Rec.Anlog 100 Unit/Ml 10 Ml Vial) 65 unit SUBCUT BEDTIME COUNTS INCLUDE 234 BEDS AT [facility] Last Admin: 03/15/21 20:11 Dose: 65 unit Documented by: TIFFANIE Insulin Human Lispro (Insulin Lispro 100 Unit/Ml 3 Ml Vial) 0 unit SUBCUT QIDACHS COUNTS INCLUDE 234 BEDS AT [facility]; Protocol Last Admin: 03/16/21 07:41 Dose: 8 unit Documented by: TALI Lisinopril (Lisinopril 10 Mg Tablet) 30 mg PO DAILY [facility]CLUDE 234 BEDS AT [facility]; Protocol Last Admin: 03/16/21 08:57 Dose: 30 mg Documented by: TALI Lorazepam (Lorazepam 1 Mg Tablet) 1 mg PO BID PRN PRN Reason: agitation Methadone HCl (Methadone Hcl 20 Mg/2 Ml Oral.Conc) 20 mg PO DAILY [facility]S [facility]CLUDE 234 BEDS AT [facility] Last Admin: 03/16/21 09:06 Dose: 20 mg Documented by: TALI Methylprednisolone Sodium Succinate (Methylprednisolone Sod Succ 40 Mg/Ml Vial) 40 mg IVPUSH BID COUNTS INCLUDE 234 BEDS AT [facility] Last Admin: 03/16/21 09:54 Dose: 40 mg Documented by: TALI Ondansetron HCl (Ondansetron Hcl 4 Mg/2 Ml Vial) 4 mg IVPUSH Q8H PRN PRN Reason: Nausea and Vomiting Sodium Chloride (0.9 % Sodium Chloride Flush 3 Ml Syringe) 3 ml IVFLUSH QSHIFT COUNTS INCLUDE 234 BEDS AT [facility] Last Admin: 03/16/21 07:26 Dose: 3 ml Documented by: TALI Vitamin D (Cholecalciferol (Vitamin D3) 25 Mcg Tablet) 25 mcg PO DAILY [facility] Last Admin: 03/16/21 08:56 Dose: 25 mcg Documented by: TALI Labs CBC & Chem 7: 03/15/21 05:51 03/15/21 05:51 Labs: Laboratory Results - last 24 hr 03/15/21 03/15/21 03/15/21 11:19 17:02 19:44 POC Glucose 313 H 316 H 309 H 03/16/21 07:28 POC Glucose 334 H Assessment and Plan (1) Acute respiratory failure with hypoxia: Status: Acute (2) Rhinovirus: Status: Acute (3) Chronic atrial fibrillation: Status: Acute (4) Diabetes mellitus: Status: Acute Assessment and Plan: ? This is a 61-year-old male with history of diabetes, hypertension, dyslipidemia, atrial fibrillation on Eliquis, question CHF, PVD, opiate abuse on methadone who presents to the emergency department with 2-3 week history of increasing shortness of breath found to have acute asthma exacerbation and rhino virus positive Acute respiratory failure with hypoxia complicated by Asthma exacerbation secondary to rhino virus -IV Solu-Medrol -scheduled and as needed breathing treatments -supplemental oxygen as needed cta negative for pe continues to be sob on minimal exertion, will continue to monitor today chest pain MSK tylenol prn chronic atrial fibrillation Heart rate controlled Does not appear to be on any rate control med Continue anticoagulation with Eliquis Diabetes SSI, POCs Continue Lantus Trulicity non formulary, hold metformin HLD Continue statin Hypertension Continue lisinopril, Norvasc, monitor History of heart failure No previous echo in system No acute exacerbation BNP 72 Continue home dose of Lasix History of opiate use disorder methadone 20 mg daily GERD Continue PPI Anxiety Continue Ativan Obesity BMI 36.5, weight loss dvt ppx - eliquis Quality Stroke Does the patient have a stroke diagnosis?: No VTE Prior VTE?: No VTE Risk Level:: Medical - moderate - high VTE Device Contraindication: Treatment Not Indicated VTE Drug Contraindication: N/A - Med Ordered
[2021-03-16 11:06] LABS: Glucose, Whole Blood 241 mg/dL (60-115)
[2021-03-16 16:43] LABS: Glucose, Whole Blood 358 mg/dL (60-115)
[2021-03-16] MEDS: Ibuprofen 400 MG TABLET PO (17:50)
[2021-03-16] MEDS: Insulin Glargine,Hum.rec.anlog 100 UNIT/ML 10 ML VIAL 65 UNIT SUBCUT (20:45)
[2021-03-16 21:00] LABS: Glucose, Whole Blood 328 mg/dL (60-115)
[2021-03-16 23:49] LABS: Basophils Percent Auto 0.1 % (0-2); Hematocrit 39.3 % (42-52); Hemoglobin 12.8 g/dl (14.0-18.0); Imm Gran Abs Auto 0.05 X10*3/uL (0.00-0.03); Imm Gran Pct Auto 0.4 % (0.0-0.4); Lymphocytes Absolute Auto 0.6 X10*3/uL (1.2-4.9); Lymphocytes Percent Auto 5.6 % (20-40); MANUAL DIFF FLAG SCAN; Mean Corpuscular HGB Conc 32.6 g/dl (31.0-36.0); Mean Corpuscular Hemoglobin 27.2 pg (27.0-33.0); Mean Corpuscular Volume 83.4 fL (80-98); Mean Platelet Volume 10.1 fL (9.4-12.4); Monocytes Absolute Auto 0.4 X10*3/uL (0.1-1.2); Monocytes Percent Auto 3.3 % (2-11); Neutrophils Absolute Auto 10.3 X10*3/uL (2.0-8.3); Neutrophils Percent Auto 90.6 % (45-73); Platelet Count 301 X10*3/uL (160-400); Red Blood Count 4.71 X10*6/uL (4.60-5.80); Red Cell Distribution Width 15.7 % (11.0-16.0); SCAN SMEAR FLAG 1; White Blood Count 11.4 X10*3/uL (4.8-10.8)
[2021-03-17] VITALS (10 sets, daily range): BP systolic 92–138; BP diastolic 51–81; PULSE 58–89; RESP 14–19; TEMP 36–37.2; O2SAT 91–97
[2021-03-17 00:05] LABS: SLIDE REVIEW VERIFIED
[2021-03-17 00:18] LABS: Anion Gap 13 (12-20); Blood Urea Nitrogen 34 mg/dL (9-16); Calcium 8.9 mg/dL (8.4-10.2); Carbon Dioxide 22 mmol/L (22-29); Chloride 104 mmol/L (96-108); Creatinine Clr Calc Pharmacy 122.2; Estimated Glomerular Filt Rate > 60; Glucose Random 384 mg/dL (60-115); Magnesium 2.1 mg/dL (1.6-2.6); Potassium 4.4 mmol/L (3.3-5.1); Sodium 135 mmol/L (135-145)
--- NOTE | 2021-03-17 05:34 | PC.NURSE ---
P: 3 beat V-tach noted on tele monitor shortly after 23:00. Pt denies any symptoms. BRIM STIFFENER reported that this patient had runs of V-tach the prior night. I: notified, requested order to be placed to check CBC, BMP, and Magnesium. All labs came back WNL except critical random glucose of 384, result reported to hospitalist. E: Will continue to monitor pt for ectopy on monitor. VSS, pt resting in bed.
[2021-03-17] MEDS: Albuterol/Iprat 2.5/0.5MG 3 ML AMPUL.NEB INHALE ×3 (07:50→19:54)
[2021-03-17] MEDS: Insulin Lispro 100 UNIT/ML 3 ML VIAL SUBCUT ×4 (07:50→21:15)
[2021-03-17 08:27] LABS: Glucose, Whole Blood 239 mg/dL (60-115)
[2021-03-17] MEDS: 0.9 % Sodium Chloride Flush 3 ML SYRINGE IVFLUSH ×3 (09:01→21:15)
[2021-03-17] MEDS: Cholecalciferol (Vitamin D3) 25 MCG TABLET PO (09:02)
[2021-03-17] MEDS: methADONE HCl 20 MG/2 ML ORAL.CONC PO (09:02)
[2021-03-17] MEDS: Furosemide 40 MG TABLET PO (09:02)
[2021-03-17] MEDS: amLODIPine Besylate 10 MG TABLET PO (09:03)
[2021-03-17] MEDS: methylPREDNISolone Sod Succ 40 MG/ML VIAL IVPUSH ×2 (09:03→21:15)
[2021-03-17] MEDS: lisinopriL 10 MG TABLET 30 MG PO (09:03)
[2021-03-17] MEDS: Apixaban 5 MG TABLET PO ×2 (09:03→21:15)
[2021-03-17] MEDS: Atorvastatin Calcium 80 MG TABLET PO (09:03)
[2021-03-17] MEDS: guaiFENesin DM 100/10/5 ML 5 ML SYRUP PO ×3 (09:07→23:07)
--- NOTE | 2021-03-17 10:32 | P.PNIM_ITS ---
Subjective Subjective Date of Service: 03/17/21 Interval History: cc: sob interval history: still very sob Cardiovascular Cardiovascular: Reports no additional cardiovascular complaints Gastrointestinal Gastrointestinal: Reports no additional gastrointestinal complaints Physical Exam Vital Signs: Vital Signs: Last Vital Signs Temp 98.4 F 03/17/21 08:00 Pulse 81 03/17/21 09:03 Resp 18 03/17/21 08:00 BP 122/63 03/17/21 09:03 Pulse Ox 97 03/17/21 08:00 Oxygen Flow Rate 2 03/14/21 11:52 Body Mass Index 36.5 General: AO X 3, no acute distress Resp:? diminished bilateral, no accessory muscles used CVS: S1,S2,RRR GI: soft, non tender, non distended Neuro:? motor grossly intact, alert Psych: appropriate affect, appropriate insight? bilateral bka chest: tenderness to palpation Objective Data Active Medications Acetaminophen (Acetaminophen 325 Mg Tablet) 650 mg PO Q6H PRN PRN Reason: Pain, Mild (Pain Scale 1-3) Last Admin: 03/16/21 08:57 Dose: 650 mg Documented by: TALI Albuterol Sulfate (Albuterol Sulfate (0.083%) 2.5 Mg/3 Ml Vial.Neb) 2.5 mg INHALE Q4H PRN PRN Reason: Shortness of Breath Albuterol/Ipratropium (Albuterol/Iprat 2.5/0.5mg 3 Ml Ampul.Neb) 3 ml INHALE RQ6H WHILE AWAKE [facility] Last Admin: 03/17/21 07:50 Dose: 3 ml Documented by: WIL Amlodipine Besylate (Amlodipine Besylate 10 Mg Tablet) 10 mg PO DAILY [facility]; Protocol Last Admin: 03/17/21 09:03 Dose: 10 mg Documented by: MIGUEL ANGEL Apixaban (Apixaban 5 Mg Tablet) 5 mg PO BID [facility] Last Admin: 03/17/21 09:03 Dose: 5 mg Documented by: MIGUEL ANGEL Atorvastatin Calcium (Atorvastatin Calcium 80 Mg Tablet) 80 mg PO DAILY [facility] Last Admin: 03/17/21 09:03 Dose: 80 mg Documented by: MIGUEL ANGEL Dextrose (Dextrose 50 % 25 Gm/50 Ml Vial) 25 gm IVPUSH Q15M PRN; Protocol PRN Reason: per Hypoglycemia Standing Ord. Docusate Sodium (Docusate Sodium 100 Mg Capsule) 100 mg PO DAILY PRN PRN Reason: Constipation Furosemide (Furosemide 40 Mg Tablet) 40 mg PO DAILY [facility]; Protocol Last Admin: 03/17/21 09:02 Dose: 40 mg Documented by: MIGUEL ANGEL Glucose (Glucose Gel 15 Gm Gel..Gram.) 15 gm PO Q15M PRN; Protocol PRN Reason: per Hypoglycemia Standing Ord. Guaifenesin (Guaifenesin 200 Mg/10 Ml 10 Ml Liquid) 10 ml PO Q4H PRN PRN Reason: cough Guaifenesin/Dextromethorphan (Guaifenesin Dm 100/10/5 Ml 5 Ml Syrup) 5 ml PO Q4H PRN PRN Reason: cough Last Admin: 03/17/21 09:07 Dose: 5 ml Documented by: MIGUEL ANGEL Ibuprofen (Ibuprofen 400 Mg Tablet) 400 mg PO Q6H PRN PRN Reason: Pain, Moderate (Pain Scale 4-6 Last Admin: 03/16/21 17:50 Dose: 400 mg Documented by: VICKI Insulin Glargine (Insulin Glargine,Hum.Rec.Anlog 100 Unit/Ml 10 Ml Vial) 65 unit SUBCUT BEDTIME [facility] Last Admin: 03/16/21 20:45 Dose: 65 unit Documented by: TASHA Insulin Human Lispro (Insulin Lispro 100 Unit/Ml 3 Ml Vial) 0 unit SUBCUT QIDAC HS [facility]; Protocol Last Admin: 03/17/21 07:50 Dose: 4 unit Documented by: MIGUEL ANGEL Lisinopril (Lisinopril 10 Mg Tablet) 30 mg PO DAILY [facility]; Protocol Last Admin: 03/17/21 09:03 Dose: 30 mg Documented by: MIGUEL ANGEL Lorazepam (Lorazepam 1 Mg Tablet) 1 mg PO BID PRN PRN Reason: agitation Methadone HCl (Methadone Hcl 20 Mg/2 Ml Oral.Conc) 20 mg PO DAILY [facility] Last Admin: 03/17/21 09:02 Dose: 20 mg Documented by: MIGUEL ANGEL Methylprednisolone Sodium Succinate (Methylprednisolone Sod Succ 40 Mg/Ml Vial) 40 mg IVPUSH BID [facility] Last Admin: 03/17/21 09:03 Dose: 40 mg Documented by: MIGUEL ANGEL Ondansetron HCl (Ondansetron Hcl 4 Mg/2 Ml Vial) 4 mg IVPUSH Q8H PRN PRN Reason: Nausea and Vomiting Sodium Chloride (0.9 % Sodium Chloride Flush 3 Ml Syringe) 3 ml IVFLUSH QSHIFT [facility] Last Admin: 03/17/21 09:01 Dose: 3 ml Documented by: MIGUEL ANGEL Vitamin D (Cholecalciferol (Vitamin D3) 25 Mcg Tablet) 25 mcg PO DAILY [facility] Last Admin: 03/17/21 09:02 Dose: 25 mcg Documented by: MIGUEL ANGEL Labs CBC & Chem 7: 03/16/21 23:41 03/16/21 23:41 Labs: Laboratory Results - last 24 hr 03/16/21 03/16/21 03/16/21 10:51 16:39 20:56 MCV MCH MCHC RDW Plt Count MPV Immature Gran % (Auto) Neut % (Auto) Lymph % (Auto) [place] % (Auto) Eos % (Auto) Baso % (Auto) Lymph # (Auto) [place] # (Auto) Eos # (Auto) Baso # (Auto) Abs Immat Gran (auto) Absolute Neuts (auto) Absolute Nucleated RBC Nucleated RBC % (auto) Smear Tech's Comments Anion Gap Estim Creat Clear Calc Estimated GFR POC Glucose 241 H 358 H* 328 H Random Glucose Calcium Magnesium 03/16/21 03/16/21 03/17/21 23:41 23:41 08:24 MCV 83.4 MCH 27.2 MCHC 32.6 RDW 15.7 Plt Count 301 MPV 10.1 Immature Gran % (Auto) 0.4 Neut % (Auto) 90.6 H Lymph % (Auto) 5.6 L [place] % (Auto) 3.3 Eos % (Auto) 0.0 Baso % (Auto) 0.1 Lymph # (Auto) 0.6 L [place] # (Auto) 0.4 Eos # (Auto) 0.0 Baso # (Auto) 0.0 Abs Immat Gran (auto) 0.05 H Absolute Neuts (auto) 10.3 H Absolute Nucleated RBC 0.000 Nucleated RBC % (auto) 0.0 Smear Tech's Comments VERIFIED Anion Gap 13 Estim Creat Clear Calc 122.2 Estimated GFR > 60 POC Glucose 239 H Random Glucose 384 H* Calcium 8.9 Magnesium 2.1 Assessment and Plan (1) Acute respiratory failure with hypoxia: Status: Acute (2) Rhinovirus: Status: Acute (3) Chronic atrial fibrillation: Status: Acute (4) Diabetes mellitus: Status: Acute Assessment and Plan: ? This is a 61-year-old male with history of diabetes, hypertension, dyslipidemia, atrial fibrillation on Eliquis, question CHF, PVD, opiate abuse on methadone who presents to the emergency department with 2-3 week history of increasing shortness of breath found to have acute asthma exacerbation and rhino virus positive Acute respiratory failure with hypoxia complicated by Asthma exacerbation secondary to rhino virus -IV Solu-Medrol -scheduled and as needed breathing treatments -supplemental oxygen as needed cta negative for pe continues to be sob on minimal exertion, on room air at rest, but desats on exertion, continues to require inpatient management chest pain MSK tylenol prn chronic atrial fibrillation Heart rate controlled Does not appear to be on any rate control med Continue anticoagulation with Eliquis Diabetes SSI, POCs Continue Lantus Trulicity non formulary, hold metformin HLD Continue statin Hypertension Continue lisinopril, Norvasc, monitor History of heart failure No previous echo in system No acute exacerbation BNP 72 Continue home dose of Lasix History of opiate use disorder methadone 20 mg daily GERD Continue PPI Anxiety Continue Ativan Obesity BMI 36.5, weight loss dvt ppx - eliquis Quality Stroke Does the patient have a stroke diagnosis?: No VTE Prior VTE?: No VTE Risk Level:: Medical - moderate - high VTE Device Contraindication: Treatment Not Indicated VTE Drug Contraindication: N/A - Med Ordered
--- NOTE | 2021-03-17 11:53 | MHC.CM.PN ---
per rounds posiible dc for pt keara plan reamins home with a new referral to ns
[2021-03-17 12:19] LABS: Glucose, Whole Blood 291 mg/dL (60-115)
[2021-03-17] MEDS: Lactated Ringers 1,000 ML 50 ML IVCONT (16:00)
[2021-03-17 16:27] LABS: Glucose, Whole Blood 345 mg/dL (60-115)
[2021-03-17 19:59] LABS: Glucose, Whole Blood 277 mg/dL (60-115)
[2021-03-17] MEDS: Insulin Glargine,Hum.rec.anlog 100 UNIT/ML 10 ML VIAL 75 UNIT SUBCUT (21:16)
[2021-03-18 04:00] VITALS: BP 117/58; PULSE 66; RESP 18; TEMP 36.4; O2SAT 98
[2021-03-18] MEDS: guaiFENesin DM 100/10/5 ML 5 ML SYRUP PO ×2 (06:30→12:13)
[2021-03-18 07:34] VITALS: BP 122/72; PULSE 65; RESP 16; TEMP 36.4; O2SAT 90
[2021-03-18] MEDS: Albuterol/Iprat 2.5/0.5MG 3 ML AMPUL.NEB INHALE ×2 (07:40→14:02)
[2021-03-18 07:41] VITALS: PULSE 78; O2SAT 93
[2021-03-18 07:43] LABS: Glucose, Whole Blood 241 mg/dL (60-115)
[2021-03-18] MEDS: Insulin Lispro 100 UNIT/ML 3 ML VIAL SUBCUT ×2 (08:47→12:14)
[2021-03-18 08:48] VITALS: BP 122/72; PULSE 78
[2021-03-18] MEDS: Apixaban 5 MG TABLET PO (08:48)
[2021-03-18] MEDS: 0.9 % Sodium Chloride Flush 3 ML SYRINGE IVFLUSH (08:48)
[2021-03-18] MEDS: Furosemide 40 MG TABLET PO (08:48)
[2021-03-18] MEDS: Cholecalciferol (Vitamin D3) 25 MCG TABLET PO (08:48)
[2021-03-18] MEDS: amLODIPine Besylate 10 MG TABLET PO (08:48)
[2021-03-18] MEDS: lisinopriL 10 MG TABLET 30 MG PO (08:48)
[2021-03-18] MEDS: Atorvastatin Calcium 80 MG TABLET PO (08:48)
[2021-03-18] MEDS: methylPREDNISolone Sod Succ 40 MG/ML VIAL IVPUSH (08:49)
[2021-03-18] MEDS: methADONE HCl 20 MG/2 ML ORAL.CONC PO (08:49)
[2021-03-18 11:13] LABS: Glucose, Whole Blood 262 mg/dL (60-115)
[2021-03-18 11:42] VITALS: BP 113/80; PULSE 87; RESP 16; TEMP 36.7; O2SAT 95
--- NOTE | 2021-03-18 11:54 | P.DS_ITS ---
DS: Providers Provider Date of Service: 03/18/21 Date of admission: 03/14/21 17:19 Primary care physician: Yoli Wilkins MD DS: Diagnosis Discharge Diagnosis (1) Acute respiratory failure with hypoxia: Status: Acute (2) Rhinovirus: Status: Acute (3) Chronic atrial fibrillation: Status: Acute (4) Diabetes mellitus: Status: Acute DS: Summary Hospital Course Hospital Course: Patient was admitted for acute hypoxic respiratory failure secondary to coronavirus pneumonia complicated by exacerbation of mild intermittent asthma. He was treated with steroids and bronchodilators. His symptoms improved next few days. He did require high-flow oxygen briefly but was able to be weaned quickly to room air. Patient is now feeling much better and is able to ambulate on his prostheses on room air with minimal shortness of breath. Patient will be discharged home on 5 more days of oral prednisone. Time Spent with Patient Time attestation: Total time spent providing and/or coordinating discharge services: Discharge coordination time: Greater than 30 minutes Quality: Stroke Does the patient have a stroke diagnosis?: No Physical Exam Vital Signs: Vital Signs: Last Vital Signs Temp 98.1 F 03/18/21 11:42 Pulse 87 03/18/21 11:42 Resp 16 03/18/21 11:42 BP 113/80 03/18/21 11:42 Pulse Ox 95 03/18/21 11:42 Oxygen Flow Rate 2 03/14/21 11:52 Body Mass Index 36.5 General: AO X 3, no acute distress Resp:? diminished bilateral, no accessory muscles used CVS: S1,S2,RRR GI: soft, non tender, non distended Neuro:? motor grossly intact, alert Psych: appropriate affect, appropriate insight? bilateral bka chest: tenderness to palpation DS: Data Data Completed and Pending Labs on day of discharge: Laboratory Results - last 24 hr 03/17/21 03/17/21 03/17/21 12:04 16:23 19:56 POC Glucose 291 H 345 H 277 H 03/18/21 03/18/21 07:39 11:08 POC Glucose 241 H 262 H Discharge Plan Discharge Patient Disposition: Home Health Service Discharge Diagnosis: rhinovirsu pna Referrals: Yoli Ocampo MD [Primary Care Provider] - 03/22/21 1:00 pm (You have a follow up appointment scheduled on March 22 at 1:00 pm with [employer] Angela Krueger. Please call your doctor's office if you need to reschedule. ) Discharge Medications: New prednisone 20 mg tablet 40 mg PO DAILY Qty: 10 RF: 0 Continued lancets [FreeStyle Lancets] 28 gauge misc 28 gauge topical QID 30 Days Qty: 120 RF: 11 (DME) FreeStyle Test Strip See Rx Instructions .ROUTE .MEDSUPPLY Qty: 100 RF: 11 atorvastatin 80 mg tablet 80 mg PO DAILY Qty: 30 RF: 6 insulin lispro [Humalog KwikPen Insulin] 100 unit/mL insulin pen 35 unit subcut TID 30 Days Qty: 31.5 RF: 6 (DME) bilateral socket replacement See Rx Instructions .Route .MEDSUPPLY Qty: 1 RF: 0 Lantus Solostar U-100 Insulin 100 unit/mL (3 mL) insulin pen 65 unit subcut QPM 90 Days Qty: 58.5 RF: 2 amlodipine 10 mg tablet 10 mg PO DAILY Qty: 30 RF: 6 pantoprazole 40 mg tablet,delayed release (DR/EC) 40 mg PO DAILY Qty: 30 RF: 4 cholecalciferol (vitamin D3) [Vitamin D3] 25 mcg (1,000 unit) capsule 25 mcg PO DAILY Qty: 90 RF: 3 lisinopril 30 mg tablet 30 mg PO DAILY Qty: 90 RF: 3 (DME) Aeroneb Go Nebulizer Misc See Rx Instructions .Route Qty: 1 RF: 0 Trulicity 0.75 mg/0.5 mL pen injector 0.75 mg subcut QWEEK 90 Days Qty: 6.5 RF: 3 albuterol sulfate 90 mcg/actuation HFA aerosol inhaler 2 puff inhalation Q4-6H PRN (Reason: shortness of breath or wheezing) 30 Days Qty: 6.7 RF: 3 Eliquis 5 mg tablet 5 mg PO BID 30 Days Qty: 60 RF: 0 albuterol sulfate 2.5 mg /3 mL (0.083 %) solution for nebulization 2.5 mg inhalation QID PRN (Reason: shortness of breath or wheezing) 30 Days Qty: 75 RF: 0 ibuprofen 800 mg tablet 800 mg PO TID Qty: 90 RF: 3 lorazepam 1 mg tablet 1 mg PO BID PRN (Reason: agitation) 30 Days Qty: 60 RF: 0 zolpidem 10 mg tablet 10 mg PO ONCE Qty: 30 RF: 0 metformin 1,000 mg tablet 1,000 mg PO BID 90 Days Qty: 180 RF: 2 furosemide 40 mg tablet 1 tab PO DAILY RF: 0 methadone RF: 0 methadone 10 mg/mL Syringe 20 mg PO DAILY RF: 0 (DME) insulin syringe-needle U-100 0.3 mL 31 gauge x 5/16 syringe See Rx Instructions .ROUTE .MEDSUPPLY Qty: 100 RF: 3 ferrous sulfate 325 mg (65 mg iron) tablet 325 mg PO DAILY RF: 0 Discharge Orders: Discharge Order (Routine); Ordered 03/18/21 Ordered By: Jose Biggs Diet: advance to usual diet Activity on Discharge: As tolerated Stand Alone Forms: Patient Portal Discharge page Care Plan Goals: Recovery Health Concerns: Rhino virus pneumonia Plan of Treatment: Prednisone Assessment: See above
--- NOTE | 2021-03-18 12:18 | MHC.CM.PN ---
Patient has been medically cleared for dc to home today WITH SERVICES. a REFERRAL HAS BEEN MADE TO [facility], WHO HAS BEEN NOTIFIED OF TODAY'S DC. lAST imm ADDRESSED YESTERDAY.
[2021-03-18 14:03] VITALS: PULSE 86; O2SAT 93
== END 2021-03-18 14:42 | disposition home health service (06) | DRG 141 ==
LOC: HO.ED 11:54 → HO.EDOVER 17:31 → HO.IMC 19:56
PROVIDERS: Hospitalist; Physician Assistant; Admitting Provider Physician Assistant Medical; Emergency Provider Emergency Medicine Emergency Medical Services; PCP Internal Medicine; Visit Provider Internal Medicine
DX: J45.21 Mild intermittent asthma with (acute) exacerbation (principal); J96.01 Acute respiratory failure with hypoxia; I11.0 Hypertensive heart disease with heart failure; F11.20 Opioid dependence, uncomplicated; I50.9 Heart failure, unspecified; K21.9 Gastro-esophageal reflux disease without esophagitis; Z89.511 Acquired absence of right leg below knee; E66.9 Obesity, unspecified; E78.5 Hyperlipidemia, unspecified; Z68.36 Body mass index [BMI] 36.0-36.9, adult; Z20.822 Contact with and (suspected) exposure to COVID-19; Z89.512 Acquired absence of left leg below knee; I48.20 Chronic atrial fibrillation, unspecified; E11.9 Type 2 diabetes mellitus without complications; B97.89 Other viral agents as the cause of diseases classified elsewhere; Z87.891 Personal history of nicotine dependence; Z79.1 Long term (current) use of non-steroidal anti-inflammatories (NSAID); Z79.4 Long term (current) use of insulin; Z79.01 Long term (current) use of anticoagulants; Z79.899 Other long term (current) drug therapy
CPT/HCPCS: 0241U; 36415; 71045; 71275; 80048; 80053; 80307; 82728; 82803; 82947; 83615; 83735; 83880; 84145; 84484; 85025; 85610; 85730; 87633; 93005; 94640; 94644; 96361; 96365; 96366; 96375; 99285; 99291; J1940; J2920; J2930; J3475; Q9967

== ENCOUNTER → 2021-03-31 11:36 | Outpatient (BNVA) | payer OTHER, SELFPAY | PROVIDERS: PCP Internal Medicine; Referring Provider Internal Medicine; Visit Provider Internal Medicine Cardiovascular Disease | DX: I48.20 Chronic atrial fibrillation, unspecified (principal); I10 Essential (primary) hypertension | CPT/HCPCS: 93005; 99212 ==

== ENCOUNTER 2021-09-23 11:20 | Outpatient (REF) | payer OTHER, SELFPAY ==
--- NOTE | ~2021-09-23 | XR_ITS ---
EXAMINATION: XR CHEST CLINICAL INFORMATION: Chronic cough COMPARISON: None TECHNIQUE: 2 views of the chest were obtained. FINDINGS: No significant abnormality is noted involving the heart, lungs, mediastinum, bony thorax or soft tissues. XR/XR chest 2V IMPRESSION: Unremarkable chest examination.
[2021-09-23 11:43] LABS: MANUAL DIFF FLAG NO
[2021-09-23 12:06] LABS: Basophils Percent Auto 0.6 % (0-2); Eosinophils Absolute Auto 0.3 X10*3/uL (0.0-0.4); Eosinophils Percent Auto 3.9 % (0-4); Hematocrit 42.3 % (42.0-52.0); Hemoglobin 14.2 g/dl (14.0-18.0); Imm Gran Abs Auto 0.02 X10*3/uL (0.00-0.03); Imm Gran Pct Auto 0.3 % (0.0-0.4); Lymphocytes Absolute Auto 2.7 X10*3/uL (1.2-4.9); Lymphocytes Percent Auto 37.9 % (20-40); Mean Corpuscular HGB Conc 33.6 g/dl (31.0-36.0); Mean Corpuscular Hemoglobin 28.1 pg (27.0-33.0); Mean Corpuscular Volume 83.6 fL (80.0-98.0); Mean Platelet Volume 10.8 fL (9.4-12.4); Monocytes Absolute Auto 0.5 X10*3/uL (0.1-1.2); Monocytes Percent Auto 7.6 % (2-11); Neutrophils Absolute Auto 3.6 x10*3/uL (2.0-8.3); Neutrophils Percent Auto 49.7 % (45-73); Platelet Count 261 X10*3/uL (160-400); Red Blood Count 5.06 X10*6/uL (4.60-5.80); White Blood Count 7.2 X10*3/uL (4.8-10.8)
[2021-09-23 12:31] LABS: Alanine Aminotransferase 18 U/L (0-40); Albumin Level 2.7 g/dL (3.5-5.0); Alkaline Phosphatase 172 U/L (39-117); Anion Gap 13 (12-20); Aspartate Amino Transferase 19 U/L (5-37); Bilirubin Total 0.3 mg/dL (0.0-1.0); Blood Urea Nitrogen 14 mg/dL (9-16); Calcium 9.3 mg/dL (8.4-10.2); Carbon Dioxide 25 mmol/L (22-29); Chloride 102 mmol/L (96-108); Cholesterol 276 mg/dL; Estimated Glomerular Filt Rate > 60; Glucose Random 264 mg/dL (60-115); HDL Cholesterol 49 mg/dL; LDL Cholesterol Calculated 191 mg/dl; Potassium 4.2 mmol/L (3.3-5.1); Sodium 136 mmol/L (135-145); Total Protein 5.8 g/dL (6.5-8.0); Triglycerides 181 mg/dL
[2021-09-23 12:33] LABS: Creatinine Urine 47.43 mg/dL
[2021-09-23 12:50] LABS: Prostate Specific Antigen Scr 0.85 ng/mL (<0.05-4.0)
[2021-09-23 13:20] LABS: Microalbum/Creatinine Ratio Ur 5517.6 ug/mg cr
== END 2021-09-23 11:21 | disposition home or self-care (01) ==
LOC: HO.XRAY 11:20
PROVIDERS: PCP Internal Medicine; Visit Provider Nurse Practitioner Family
DX: Z12.5 Encounter for screening for malignant neoplasm of prostate (principal); R05.3 Chronic cough; E11.59 Type 2 diabetes mellitus with other circulatory complications; I10 Essential (primary) hypertension; E78.00 Pure hypercholesterolemia, unspecified; Z79.4 Long term (current) use of insulin
CPT/HCPCS: 36415; 71046; 80053; 80061; 82043; 84153; 85025

== ENCOUNTER 2021-12-22 08:00 | Outpatient (RCR) | payer OTHER, SELFPAY ==
--- NOTE | ~2021-12-22 | XR_ITS ---
EXAMINATION: XR KNEE, LEFT CLINICAL INFORMATION: Left below-knee amputation, nonhealing wound, evaluate for osteomyelitis. COMPARISON: X-ray of the left knee July 2020, MRI of the left lower leg September 2020. TECHNIQUE: 4 views of the left knee. FINDINGS: Postop changes related to left left below-knee amputation. There appears to have been interval change given the decrease length of the remaining tibia and fibula since the prior x-ray and MRI. There is slight prominence of the soft tissues which could reflect edema or normal variation. There is generalized prominence of soft tissues. Question superficial defect along the anterior aspect of the remaining lower leg, 2 cm distal to the end of the proximal tibia seen on the lateral projection. This potential defect measures approximately 1.9 cm craniocaudal and extends approximately 7 mm deep to the expected level of the skin. No bony erosions of the tibia or remaining fibula. This some minimal scattered calcification or ossification in the soft tissues likely dystrophic. Some of the calcifications relate to calcific atherosclerotic changes. There are surgical clips noted. There are stable osteoarthritic changes of the knee joint involving the medial lateral compartments with marginal osteophytes and nonuniform joint space narrowing. XR/XR knee LT 2V IMPRESSION: Postop changes related to below-knee amputation. Suspect ulceration along the anterior aspect of the distal lower limb remaining. Possible surrounding edema and/or cellulitis. No radiographic evidence for osteomyelitis. Stable degenerative changes of the left knee joint.
[2022-05-18 09:08] LABS: MANUAL DIFF FLAG NO
[2022-05-18 09:22] LABS: Basophils Absolute Auto 0.1 X10*3/uL (0.0-0.2); Basophils Percent Auto 0.6 % (0-2); Eosinophils Absolute Auto 0.3 X10*3/uL (0.0-0.4); Eosinophils Percent Auto 2.9 % (0-4); Hematocrit 31.2 % (42.0-52.0); Hemoglobin 9.7 g/dl (14.0-18.0); Imm Gran Abs Auto 0.07 X10*3/uL (0.00-0.03); Imm Gran Pct Auto 0.8 % (0.0-0.4); Lymphocytes Absolute Auto 2.3 X10*3/uL (1.2-4.9); Lymphocytes Percent Auto 24.8 % (20-40); Mean Corpuscular HGB Conc 31.1 g/dl (31.0-36.0); Mean Corpuscular Hemoglobin 27.2 pg (27.0-33.0); Mean Corpuscular Volume 87.4 fL (80.0-98.0); Mean Platelet Volume 9.8 fL (9.4-12.4); Monocytes Absolute Auto 0.6 X10*3/uL (0.1-1.2); Neutrophils Percent Auto 64.9 % (45-73); Platelet Count 400 X10*3/uL (160-400); Red Blood Count 3.57 X10*6/uL (4.60-5.80); Red Cell Distribution Width 14.8 % (11.0-16.0); White Blood Count 9.2 X10*3/uL (4.8-10.8)
[2022-05-18 09:24] LABS: Estimated Average Glucose 140 mg/dL; Hemoglobin A1c % 6.5 %
[2022-05-18 09:49] LABS: Anion Gap 11 (12-20); Blood Urea Nitrogen 12 mg/dL (9-16); C Reactive Protein 1.22 mg/dL (< or = 0.50); Calcium 7.8 mg/dL (8.4-10.2); Carbon Dioxide 26 mmol/L (22-29); Chloride 103 mmol/L (96-108); Estimated Glomerular Filt Rate > 60; Glucose Random 246 mg/dL (60-115); Potassium 3.6 mmol/L (3.3-5.1); Sodium 136 mmol/L (135-145)
[2022-05-18 10:05] LABS: Erythrocyte Sedimentation Rate 101 MM/HR (0-15)
== END 2022-11-25 16:00 | disposition home or self-care (01) ==
LOC: HO.WCC 08:00
PROVIDERS: PCP Internal Medicine; Visit Provider Physician Assistant
DX: E10.622 Type 1 diabetes mellitus with other skin ulcer (principal); L97.822 Non-pressure chronic ulcer of other part of left lower leg with fat layer exposed; L97.826 Non-pressure chronic ulcer of other part of left lower leg with bone involvement without evidence of necrosis; E10.51 Type 1 diabetes mellitus with diabetic peripheral angiopathy without gangrene; T87.89 Other complications of amputation stump; E10.69 Type 1 diabetes mellitus with other specified complication; M86.462 Chronic osteomyelitis with draining sinus, left tibia and fibula; I10 Essential (primary) hypertension; E44.0 Moderate protein-calorie malnutrition; Z89.512 Acquired absence of left leg below knee; Z89.511 Acquired absence of right leg below knee; Z79.2 Long term (current) use of antibiotics
CPT/HCPCS: 11042; 11043; 11044; 11045; 36415; 73560; 80048; 83036; 84134; 85025; 85652; 86140; 87070; 87073; 87076; 87147; 87185; 87205

== ENCOUNTER 2022-01-26 07:53 | Outpatient (REF) | payer OTHER, SELFPAY ==
[2022-01-26 08:08] LABS: MANUAL DIFF FLAG NO
[2022-01-26 09:14] LABS: Basophils Absolute Auto 0.1 X10*3/uL (0.0-0.2); Basophils Percent Auto 0.9 % (0-2); Eosinophils Absolute Auto 0.5 X10*3/uL (0.0-0.4); Eosinophils Percent Auto 6.4 % (0-4); Hematocrit 36.7 % (42.0-52.0); Hemoglobin 11.7 g/dl (14.0-18.0); Imm Gran Abs Auto 0.02 X10*3/uL (0.00-0.03); Imm Gran Pct Auto 0.3 % (0.0-0.4); Lymphocytes Percent Auto 24.8 % (20-40); Mean Corpuscular HGB Conc 31.9 g/dl (31.0-36.0); Mean Corpuscular Hemoglobin 27.9 pg (27.0-33.0); Mean Corpuscular Volume 87.4 fL (80.0-98.0); Mean Platelet Volume 10.7 fL (9.4-12.4); Monocytes Absolute Auto 0.5 X10*3/uL (0.1-1.2); Monocytes Percent Auto 5.8 % (2-11); Neutrophils Absolute Auto 4.9 x10*3/uL (2.0-8.3); Neutrophils Percent Auto 61.8 % (45-73); Platelet Count 330 X10*3/uL (160-400); Red Cell Distribution Width 13.6 % (11.0-16.0)
[2022-01-26 10:00] LABS: Alanine Aminotransferase 26 U/L (0-40); Albumin Level 1.6 g/dL (3.5-5.0); Alkaline Phosphatase 216 U/L (39-117); Anion Gap 13 (12-20); Aspartate Amino Transferase 47 U/L (5-37); Bilirubin Total 0.2 mg/dL (0.0-1.0); Blood Urea Nitrogen 11 mg/dL (9-16); Calcium 7.6 mg/dL (8.4-10.2); Carbon Dioxide 24 mmol/L (22-29); Chloride 104 mmol/L (96-108); Cholesterol 370 mg/dL; Estimated Glomerular Filt Rate > 60; Glucose Fasting 142 mg/dL (60-99); HDL Cholesterol 44 mg/dL; LDL Cholesterol Calculated 296 mg/dl; Potassium 3.9 mmol/L (3.3-5.1); Sodium 137 mmol/L (135-145); Total Protein 4.8 g/dL (6.5-8.0); Triglycerides 150 mg/dL
== END 2022-01-26 07:54 | disposition home or self-care (01) ==
LOC: HO.LAB 07:53
PROVIDERS: PCP Internal Medicine; Visit Provider Internal Medicine
DX: I48.20 Chronic atrial fibrillation, unspecified (principal); D64.9 Anemia, unspecified; E78.5 Hyperlipidemia, unspecified
CPT/HCPCS: 36415; 80053; 80061; 85025

== ENCOUNTER 2022-06-27 08:01 | Outpatient (REF) | payer OTHER, SELFPAY ==
--- NOTE | ~2022-06-27 | MR_ITS ---
EXAMINATION: MR KNEE WITHOUT AND WITH CONTRAST, LEFT CLINICAL INFORMATION: Amputation 6 years ago. Nonhealing wound. COMPARISON: Most recent left knee radiographs dated 05/18/2022 and left lower leg MRI dated 09/29/2020. TECHNIQUE: MRI of the left knee was performed before and after the intravenous administration of 10 mL Gadavist on a high-field scanner. FINDINGS: There has been interval more proximal resection of the distal tibia and fibula when compared to the MRI dated 09/29/2020. There is a persistent soft tissue defect at the anterior/distal aspect of the tibia measuring 1.2 cm in AP dimension. Adjacent skin thickening and edema with postcontrast enhancement, consistent with cellulitis. No organized fluid collection or abscess formation. This wound appears to extend to the anterior tibial cortex where there is a focal erosion measuring up to 0.9 cm. There is mild periosteal edema as well as decreased T1 and increased T2 signal with postcontrast marrow enhancement. Findings are consistent with cellulitis. The distal fibula is unremarkable. No acute fracture or dislocation. No concerning lytic or blastic osseous lesion. Lower leg muscle atrophy. Circumferential subcutaneous edema. MR/MR knee LT wo/w con IMPRESSION: 1. Interval resection of the distal tibia and fibula with a persistent soft tissue defect at the anterior/distal aspect of the tibia. Adjacent skin thickening and edema with postcontrast enhancement, consistent with cellulitis. No organized fluid collection or abscess formation. This wound appears to extend to the anterior tibial cortex with areas of cortical erosion measuring up to 0.9 cm. Findings are consistent with osteomyelitis. 2. Circumferential subcutaneous edema. Lower leg muscle atrophy.
== END 2022-06-27 08:02 | disposition home or self-care (01) ==
LOC: HO.MRI 08:01
PROVIDERS: PCP Internal Medicine; Visit Provider Physician Assistant
DX: L97.822 Non-pressure chronic ulcer of other part of left lower leg with fat layer exposed (principal); T87.89 Other complications of amputation stump; Z89.512 Acquired absence of left leg below knee
CPT/HCPCS: 73723; A9585

== ENCOUNTER → 2022-07-20 13:55 | Outpatient (BNVA) | payer OTHER, SELFPAY | PROVIDERS: PCP Internal Medicine; Visit Provider Internal Medicine | DX: M86.9 Osteomyelitis, unspecified (principal) | CPT/HCPCS: 99202 ==

== ENCOUNTER → 2022-08-02 10:03 | Day surgery (SDC) | payer OTHER, SELFPAY ==
--- NOTE | ~2022-08-02 | XR_ITS ---
EXAMINATION: XR CHEST CLINICAL INFORMATION: PICC line placement COMPARISON: Previous chest x-ray most recent September 2021 TECHNIQUE: Frontal view of the chest was obtained. FINDINGS: There is a right upper extremity PICC line with tip projecting over the cavoatrial junction. The cardiac silhouette is upper normal in size. There is question of pulmonary venous redistribution. The lungs are otherwise clear. There is no pleural effusion or pneumothorax. No acute bone abnormality is seen. XR/XR chest 1V IMPRESSION: Right upper extremity PICC line tip projects over the cavoatrial junction. Question pulmonary venous redistribution.
--- NOTE | 2022-08-02 12:41 | HO.PICC ---
PICC Line Insertion NPICC Diagnosis: Osteomyelitis Indication: [facility] antibiotic Pertinent Labs: reviewed Technique: Following informed consent including risks, benefits and alternatives and using sterile technique including cap and mask, sterile gown, glove and drape, the right arm was prepped and draped in the usual sterile fashion of full barrier technique with CHG. Following completion of [place] Protocol the skin and soft tissues were anesthetized with 1% Lidocaine plain. Using ultrasound guidance, right basilic vein access was obtained in second attempt by this RN. Over an 0.018 wire through peel-away sheath, a 4 kinyarwanda single lumen PASV PICC line was positioned. Catheter length is 46 cm internal length, 0 cm external length, for a total trimmed length of 46 cm. The procedure was performed in S272. Tip verification was done with chest xray with a verbal verification of proper placement by Dr. Kobe Meza. Tip [place] [facility] Ultrasound was used to document vein patency and for needle entry. A formal ultrasound picture was taken of the right basilic vein prior to placement. [employer] has released the line for use and it is currently dressed with a StatLock, Tegaderm, and CHG disc. Verification has been performed for blood return and line patency. Arm Circumference: 34cm Equipment: [employer] PICC Catheter Type: 4 kinyarwanda single lumen PASV PICC Lot #: [id number]
== END ==
PROVIDERS: PCP Internal Medicine
DX: M86.9 Osteomyelitis, unspecified (principal); Z89.512 Acquired absence of left leg below knee; Z89.511 Acquired absence of right leg below knee; I48.20 Chronic atrial fibrillation, unspecified; J45.909 Unspecified asthma, uncomplicated; F41.8 Other specified anxiety disorders; E11.9 Type 2 diabetes mellitus without complications; Z79.4 Long term (current) use of insulin; Z79.01 Long term (current) use of anticoagulants; Z87.891 Personal history of nicotine dependence
CPT/HCPCS: 36573; 71045; C1751

== ENCOUNTER 2022-08-02 12:31 | Outpatient (REF) | payer OTHER, SELFPAY | END 2022-08-02 12:32 | disposition home or self-care (01) | LOC: HO.MDS 12:31 | PROVIDERS: Visit Provider Internal Medicine | DX: Z45.2 Encounter for adjustment and management of vascular access device (principal); M86.9 Osteomyelitis, unspecified | CPT/HCPCS: 96365; J1335 ==

== ENCOUNTER 2022-08-10 10:31 | Outpatient (REF) | payer OTHER, SELFPAY ==
[2022-08-10 16:15] LABS: MANUAL DIFF FLAG NO
[2022-08-10 16:21] LABS: Basophils Absolute Auto 0.1 X10*3/uL (0.0-0.2); Basophils Percent Auto 0.8 % (0-2); Eosinophils Absolute Auto 0.4 X10*3/uL (0.0-0.4); Eosinophils Percent Auto 7.1 % (0-4); Hematocrit 35.2 % (42.0-52.0); Hemoglobin 11.4 g/dl (14.0-18.0); Imm Gran Abs Auto 0.02 X10*3/uL (0.00-0.03); Imm Gran Pct Auto 0.3 % (0.0-0.4); Lymphocytes Absolute Auto 1.9 X10*3/uL (1.2-4.9); Lymphocytes Percent Auto 30.5 % (20-40); Mean Corpuscular HGB Conc 32.4 g/dl (31.0-36.0); Mean Corpuscular Hemoglobin 27.3 pg (27.0-33.0); Mean Corpuscular Volume 84.2 fL (80.0-98.0); Mean Platelet Volume 10.8 fL (9.4-12.4); Monocytes Absolute Auto 0.8 X10*3/uL (0.1-1.2); Monocytes Percent Auto 12.7 % (2-11); Neutrophils Absolute Auto 2.9 x10*3/uL (2.0-8.3); Neutrophils Percent Auto 48.6 % (45-73); Platelet Count 294 X10*3/uL (160-400); Red Blood Count 4.18 X10*6/uL (4.60-5.80); White Blood Count 6.1 X10*3/uL (4.8-10.8)
[2022-08-10 16:58] LABS: Erythrocyte Sedimentation Rate 89 MM/HR (0-15)
[2022-08-10 17:04] LABS: Alanine Aminotransferase 9 U/L (0-40); Albumin Level 1.7 g/dL (3.5-5.0); Alkaline Phosphatase 193 U/L (39-117); Aspartate Amino Transferase 17 U/L (5-37); Bilirubin Direct < 0.2 mg/dL (0.0-0.5); Bilirubin Total 0.2 mg/dL (0.0-1.0); Blood Urea Nitrogen 15 mg/dL (9-16); Estimated Glomerular Filt Rate > 60; Total Protein 5.3 g/dL (6.5-8.0)
== END 2022-08-10 10:32 | disposition home or self-care (01) ==
LOC: HO.HVNA 10:31
PROVIDERS: PCP Internal Medicine; Visit Provider Internal Medicine
DX: M86.9 Osteomyelitis, unspecified (principal)
CPT/HCPCS: 36415; 80076; 82565; 84520; 85025; 85652; 99212

== ENCOUNTER 2022-08-18 16:24 | Outpatient (REF) | payer OTHER, SELFPAY ==
[2022-08-18 16:30] LABS: MANUAL DIFF FLAG NO
[2022-08-18 16:48] LABS: Basophils Percent Auto 0.8 % (0-2); Eosinophils Absolute Auto 0.5 X10*3/uL (0.0-0.4); Eosinophils Percent Auto 10.6 % (0-4); Hematocrit 33.2 % (42.0-52.0); Hemoglobin 10.6 g/dl (14.0-18.0); Imm Gran Abs Auto 0.01 X10*3/uL (0.00-0.03); Imm Gran Pct Auto 0.2 % (0.0-0.4); Lymphocytes Absolute Auto 1.3 X10*3/uL (1.2-4.9); Mean Corpuscular HGB Conc 31.9 g/dl (31.0-36.0); Mean Corpuscular Hemoglobin 26.6 pg (27.0-33.0); Mean Corpuscular Volume 83.2 fL (80.0-98.0); Mean Platelet Volume 10.7 fL (9.4-12.4); Monocytes Absolute Auto 0.7 X10*3/uL (0.1-1.2); Monocytes Percent Auto 13.3 % (2-11); Neutrophils Absolute Auto 2.6 x10*3/uL (2.0-8.3); Neutrophils Percent Auto 50.1 % (45-73); Platelet Count 277 X10*3/uL (160-400); Red Blood Count 3.99 X10*6/uL (4.60-5.80); Red Cell Distribution Width 14.6 % (11.0-16.0); White Blood Count 5.1 X10*3/uL (4.8-10.8)
[2022-08-18 17:27] LABS: Erythrocyte Sedimentation Rate 94 MM/HR (0-15)
[2022-08-18 17:37] LABS: Alanine Aminotransferase 12 U/L (0-40); Albumin Level 1.4 g/dL (3.5-5.0); Alkaline Phosphatase 189 U/L (39-117); Aspartate Amino Transferase 23 U/L (5-37); Bilirubin Direct < 0.2 mg/dL (0.0-0.5); Bilirubin Total 0.2 mg/dL (0.0-1.0); Blood Urea Nitrogen 18 mg/dL (9-16); Estimated Glomerular Filt Rate > 60; Total Protein 4.8 g/dL (6.5-8.0)
== END 2022-08-18 16:25 | disposition home or self-care (01) ==
LOC: HO.HVNA 16:24
PROVIDERS: Visit Provider Internal Medicine
DX: E11.622 Type 2 diabetes mellitus with other skin ulcer (principal)
CPT/HCPCS: 36415; 80076; 82565; 84520; 85025; 85652

== ENCOUNTER 2022-08-23 16:42 | Outpatient (REF) | payer OTHER, SELFPAY ==
[2022-08-23 16:46] LABS: MANUAL DIFF FLAG NO
[2022-08-23 17:06] LABS: Basophils Percent Auto 0.6 % (0-2); Eosinophils Absolute Auto 0.4 X10*3/uL (0.0-0.4); Eosinophils Percent Auto 7.8 % (0-4); Hematocrit 29.7 % (42.0-52.0); Hemoglobin 9.6 g/dl (14.0-18.0); Imm Gran Abs Auto 0.02 X10*3/uL (0.00-0.03); Imm Gran Pct Auto 0.4 % (0.0-0.4); Lymphocytes Absolute Auto 1.9 X10*3/uL (1.2-4.9); Lymphocytes Percent Auto 39.1 % (20-40); Mean Corpuscular HGB Conc 32.3 g/dl (31.0-36.0); Mean Corpuscular Hemoglobin 26.8 pg (27.0-33.0); Mean Platelet Volume 10.8 fL (9.4-12.4); Monocytes Absolute Auto 0.7 X10*3/uL (0.1-1.2); Monocytes Percent Auto 13.9 % (2-11); Neutrophils Absolute Auto 1.9 x10*3/uL (2.0-8.3); Neutrophils Percent Auto 38.2 % (45-73); Platelet Count 266 X10*3/uL (160-400); Red Blood Count 3.58 X10*6/uL (4.60-5.80); Red Cell Distribution Width 14.7 % (11.0-16.0); White Blood Count 4.9 X10*3/uL (4.8-10.8)
[2022-08-23 17:27] LABS: Alanine Aminotransferase 11 U/L (0-40); Albumin Level 1.3 g/dL (3.5-5.0); Alkaline Phosphatase 162 U/L (39-117); Aspartate Amino Transferase 27 U/L (5-37); Bilirubin Direct < 0.2 mg/dL (0.0-0.5); Bilirubin Total 0.2 mg/dL (0.0-1.0); Blood Urea Nitrogen 20 mg/dL (9-16); Estimated Glomerular Filt Rate > 60; Total Protein 4.4 g/dL (6.5-8.0)
[2022-08-23 17:41] LABS: Erythrocyte Sedimentation Rate 100 MM/HR (0-15)
== END 2022-08-23 16:43 | disposition home or self-care (01) ==
LOC: HO.HVNA 16:42
PROVIDERS: Visit Provider Internal Medicine
DX: M86.9 Osteomyelitis, unspecified (principal)
CPT/HCPCS: 36415; 80076; 82565; 84520; 85025; 85652

== ENCOUNTER 2022-08-31 16:53 | Outpatient (REF) | payer OTHER, SELFPAY ==
[2022-08-31 16:57] LABS: MANUAL DIFF FLAG NO
[2022-08-31 17:24] LABS: Basophils Absolute Auto 0.1 X10*3/uL (0.0-0.2); Basophils Percent Auto 0.7 % (0-2); Eosinophils Percent Auto 0.1 % (0-4); Imm Gran Abs Auto 0.06 X10*3/uL (0.00-0.03); Imm Gran Pct Auto 0.7 % (0.0-0.4); Lymphocytes Absolute Auto 2.8 X10*3/uL (1.2-4.9); Lymphocytes Percent Auto 31.9 % (20-40); Mean Corpuscular HGB Conc 32.4 g/dl (31.0-36.0); Mean Corpuscular Volume 83.3 fL (80.0-98.0); Mean Platelet Volume 10.8 fL (9.4-12.4); Monocytes Absolute Auto 0.7 X10*3/uL (0.1-1.2); Monocytes Percent Auto 8.4 % (2-11); Neutrophils Percent Auto 58.2 % (45-73); Platelet Count 393 X10*3/uL (160-400); Red Blood Count 4.08 X10*6/uL (4.60-5.80); Red Cell Distribution Width 14.9 % (11.0-16.0); White Blood Count 8.7 X10*3/uL (4.8-10.8)
[2022-08-31 17:34] LABS: Erythrocyte Sedimentation Rate 94 MM/HR (0-15)
[2022-08-31 18:05] LABS: Alanine Aminotransferase 22 U/L (0-40); Albumin Level 1.5 g/dL (3.5-5.0); Alkaline Phosphatase 199 U/L (39-117); Aspartate Amino Transferase 40 U/L (5-37); Bilirubin Direct < 0.2 mg/dL (0.0-0.5); Bilirubin Total 0.2 mg/dL (0.0-1.0); Blood Urea Nitrogen 20 mg/dL (9-16); Estimated Glomerular Filt Rate > 60; Total Protein 5.3 g/dL (6.5-8.0)
== END 2022-08-31 16:54 | disposition home or self-care (01) ==
LOC: HO.HVNA 16:53
PROVIDERS: Visit Provider Internal Medicine
DX: M86.9 Osteomyelitis, unspecified (principal)
CPT/HCPCS: 36415; 80076; 82565; 84520; 85025; 85652

== ENCOUNTER → 2022-09-05 10:45 | Outpatient (BNVA) | payer OTHER, SELFPAY | PROVIDERS: PCP Internal Medicine; Visit Provider Internal Medicine | DX: M86.9 Osteomyelitis, unspecified (principal) | CPT/HCPCS: 99212 ==

== ENCOUNTER 2022-09-07 12:58 | Outpatient (REF) | payer OTHER, SELFPAY ==
[2022-09-07 13:02] LABS: MANUAL DIFF FLAG NO
[2022-09-07 13:06] LABS: Basophils Absolute Auto 0.1 X10*3/uL (0.0-0.2); Basophils Percent Auto 0.9 % (0-2); Eosinophils Absolute Auto 0.5 X10*3/uL (0.0-0.4); Eosinophils Percent Auto 6.4 % (0-4); Hematocrit 33.3 % (42.0-52.0); Hemoglobin 10.7 g/dl (14.0-18.0); Imm Gran Abs Auto 0.01 X10*3/uL (0.00-0.03); Imm Gran Pct Auto 0.1 % (0.0-0.4); Lymphocytes Absolute Auto 3.3 X10*3/uL (1.2-4.9); Lymphocytes Percent Auto 40.6 % (20-40); Mean Corpuscular HGB Conc 32.1 g/dl (31.0-36.0); Mean Corpuscular Hemoglobin 26.4 pg (27.0-33.0); Mean Platelet Volume 10.3 fL (9.4-12.4); Monocytes Absolute Auto 0.6 X10*3/uL (0.1-1.2); Monocytes Percent Auto 7.1 % (2-11); Neutrophils Absolute Auto 3.6 x10*3/uL (2.0-8.3); Neutrophils Percent Auto 44.9 % (45-73); Platelet Count 365 X10*3/uL (160-400); Red Blood Count 4.06 X10*6/uL (4.60-5.80); Red Cell Distribution Width 14.8 % (11.0-16.0)
[2022-09-07 13:47] LABS: Erythrocyte Sedimentation Rate 95 MM/HR (0-15)
[2022-09-07 13:51] LABS: Alanine Aminotransferase 20 U/L (0-40); Albumin Level 1.5 g/dL (3.5-5.0); Alkaline Phosphatase 174 U/L (39-117); Aspartate Amino Transferase 24 U/L (5-37); Bilirubin Direct < 0.2 mg/dL (0.0-0.5); Bilirubin Total 0.2 mg/dL (0.0-1.0); Blood Urea Nitrogen 16 mg/dL (9-16); Estimated Glomerular Filt Rate > 60; Total Protein 5.2 g/dL (6.5-8.0)
== END 2022-09-07 12:59 | disposition home or self-care (01) ==
LOC: HO.HVNA 12:58
PROVIDERS: Visit Provider Internal Medicine
DX: M86.9 Osteomyelitis, unspecified (principal)
CPT/HCPCS: 36415; 80076; 82565; 84520; 85025; 85652

== ENCOUNTER → 2022-09-12 10:25 | Outpatient (BNVA) | payer OTHER, SELFPAY | PROVIDERS: PCP Internal Medicine; Referring Provider Physician Assistant; Visit Provider Surgery ==

== ENCOUNTER 2022-09-14 17:46 | Outpatient (REF) | payer OTHER, SELFPAY ==
[2022-09-14 17:50] LABS: MANUAL DIFF FLAG NO
[2022-09-14 18:03] LABS: Basophils Absolute Auto 0.1 X10*3/uL (0.0-0.2); Basophils Percent Auto 0.7 % (0-2); Eosinophils Absolute Auto 0.5 X10*3/uL (0.0-0.4); Eosinophils Percent Auto 6.5 % (0-4); Hematocrit 35.5 % (42.0-52.0); Hemoglobin 11.6 g/dl (14.0-18.0); Imm Gran Abs Auto 0.02 X10*3/uL (0.00-0.03); Imm Gran Pct Auto 0.2 % (0.0-0.4); Lymphocytes Absolute Auto 3.1 X10*3/uL (1.2-4.9); Lymphocytes Percent Auto 37.5 % (20-40); Mean Corpuscular HGB Conc 32.7 g/dl (31.0-36.0); Mean Corpuscular Hemoglobin 27.2 pg (27.0-33.0); Mean Corpuscular Volume 83.1 fL (80.0-98.0); Mean Platelet Volume 11.1 fL (9.4-12.4); Monocytes Absolute Auto 0.6 X10*3/uL (0.1-1.2); Monocytes Percent Auto 6.7 % (2-11); Neutrophils Percent Auto 48.4 % (45-73); Platelet Count 313 X10*3/uL (160-400); Red Blood Count 4.27 X10*6/uL (4.60-5.80); Red Cell Distribution Width 14.3 % (11.0-16.0); White Blood Count 8.4 X10*3/uL (4.8-10.8)
[2022-09-14 18:25] LABS: Alanine Aminotransferase 23 U/L (0-40); Albumin Level 1.6 g/dL (3.5-5.0); Alkaline Phosphatase 187 U/L (39-117); Aspartate Amino Transferase 27 U/L (5-37); Bilirubin Direct < 0.2 mg/dL (0.0-0.5); Bilirubin Total 0.2 mg/dL (0.0-1.0); Blood Urea Nitrogen 20 mg/dL (9-16); Estimated Glomerular Filt Rate > 60; Total Protein 5.3 g/dL (6.5-8.0)
[2022-09-14 18:47] LABS: Erythrocyte Sedimentation Rate 89 MM/HR (0-15)
== END 2022-09-14 17:47 | disposition home or self-care (01) ==
LOC: HO.HVNA 17:46
PROVIDERS: Visit Provider Internal Medicine
DX: M86.9 Osteomyelitis, unspecified (principal)
CPT/HCPCS: 36415; 80076; 82565; 84520; 85025; 85652

== ENCOUNTER → 2022-10-17 14:21 | Outpatient (BNVA) | payer OTHER, SELFPAY | PROVIDERS: PCP Internal Medicine; Visit Provider Internal Medicine | DX: M86.9 Osteomyelitis, unspecified (principal); F14.20 Cocaine dependence, uncomplicated; Z89.422 Acquired absence of other left toe(s); Z89.511 Acquired absence of right leg below knee; Z99.3 Dependence on wheelchair | CPT/HCPCS: 99212 ==

== ENCOUNTER 2022-11-17 16:24 | Inpatient (IN) | payer OTHER, SELFPAY ==
--- NOTE | ~2022-11-17 | MR_ITS ---
EXAMINATION: MRI EXTREMITY, WITHOUT AND WITH CONTRAST, LEFT LOWER CLINICAL INFORMATION: Nonhealing wound. COMPARISON: X-ray 11/17/2022 TECHNIQUE: MRI in a high-field magnet without and with contrast. 10 mL IV Gadavist was administered. FINDINGS: Status post amputation at the level of the proximal tibial diaphysis. There is soft tissue wound along the anterior aspect of the tibial stump. This measures approximately 2.5 cm transverse, 3 cm craniocaudal. There is abnormal bright T2, low T1 signal with heterogeneous enhancement in the underlying soft tissues, which extends to the underlying bone, including the bony amputation margin.. Findings are compatible with cellulitis. There is some internal area of nonenhancement present in this region, raising the possibility of a small amount of fluid, phlegmonous change or possibly small abscess. There are multiple foci of low signal/susceptibility artifact in this region, from postsurgical changes, with small foci of air difficult to exclude. There is abnormal edema signal in the anterior and midportion of the inferior aspect of the tibia. Area of low T1 signal present in the cortical and subcortical regions. There is enhancement present. Findings are are suspicious for osteomyelitis. In the tibia, there is otherwise circumferential soft tissue swelling and subcutaneous increased T2 signal from edema or cellulitis. Diffuse fatty changes in the tibial musculature. MR/MR lower leg LT wo/w con IMPRESSION: Status post amputation at the level of the proximal tibial diaphysis. Soft tissue wound along the anterior aspect of the distal tibia/stump measuring 2.5 x 3 cm. There is underlying cellulitis, with possible small area of fluid, phlegmonous change or abscess in the underlying soft tissues. Multiple low signal foci in the soft tissues could be related to postsurgical changes, with small foci of air difficult to exclude. Abnormal signal in the anterior/midportion of the inferior aspect of the tibia, suspicious for osteomyelitis. Diffuse tibial circumferential soft tissue swelling and subcutaneous edema/cellulitis.
--- NOTE | ~2022-11-17 | XR_ITS ---
EXAMINATION: XR TIBIA AND FIBULA, LEFT CLINICAL INFORMATION: Question stump infection COMPARISON: 05/18/2022 TECHNIQUE: AP and lateral views of the left tibia and fibula were obtained. FINDINGS: On the lateral study there appears to be some loss of bone along the inferior anterior margin. There is sclerosis in the region which is new from previous. XR/XR tibia fibula LT 2V IMPRESSION: Findings as described above. Some change in the appearance of bone in the anterior inferior aspect of the tibial region. Infection cannot be excluded. Recommend pre and postcontrast MRI for full evaluation.
[2022-11-17 18:26] VITALS: BP 106/58; PULSE 68; RESP 14; TEMP 36.6; O2SAT 98; BMI 35.6
--- NOTE | 2022-11-17 18:31 | ED.WOUNDLAC ---
HPI - Wound/Laceration General Chief Complaint: Wound/Laceration Stated Complaint: left leg ulcer Time Seen by Provider: 11/17/22 20:13 Source: patient Mode of arrival: wheelchair Limitations: no limitations History of Present Illness HPI narrative: Patient is 62 years old diabetic with bilateral BKA with nonhealing wound on the left stump for more than 6 months followed by wound clinic sent here for increased pain and discharge for last few days no fever no chills patient does have history of AFib and is on Eliquis Related Data Home Medications Medication Instructions Recorded Confirmed albuterol sulfate 90 mcg/actuation 2 puff inhalation Q6H PRN wheezing 11/18/22 11/18/22 aerosol inhaler (Ventolin HFA) apixaban 5 mg tablet (Eliquis) 5 mg PO BID 11/18/22 11/18/22 cholecalciferol (vitamin D3) 25 25 mcg PO DAILY 11/18/22 11/18/22 mcg (1,000 unit) capsule dulaglutide 0.75 mg/0.5 mL 0.75 mg subcut QWEEK 11/18/22 11/18/22 subcutaneous pen injector (Trulicity) insulin glargine 100 unit/mL (3 20 unit subcut BEDTIME 11/18/22 11/18/22 mL) subcutaneous pen (Lantus Solostar U-100 Insulin) insulin lispro 100 unit/mL 28 unit subcut BID 11/18/22 11/18/22 subcutaneous pen methadone 10 mg/mL oral concentrate 10 mg PO DAILY 11/18/22 11/18/22 pantoprazole 40 mg tablet,delayed 40 mg PO DAILY 11/18/22 11/18/22 release Previous Rx's Medication Instructions Recorded scooter #1 ea 07/22/21 blood-glucose meter (FreeStyle #1 ea 08/30/21 Lite Meter kit) pen needle, diabetic 31 gauge x #100 ea 12/14/21 3/16 (BD Ultra-Fine Mini Pen Needle) wound vac #1 ea 01/03/22 atorvastatin 80 mg tablet 80 mg PO DAILY 90 days #90 tabs 01/19/22 furosemide 40 mg tablet 40 mg PO DAILY 90 days #90 tabs 01/19/22 insulin syringe-needle U-100 0.3 #100 ea 01/19/22 mL 31 gauge x 5/16 lisinopril 30 mg tablet 30 mg PO DAILY #90 tabs 01/19/22 metformin 1,000 mg tablet 1,000 mg PO BID 90 days #180 tabs 01/19/22 electric wheelchair #1 ea 06/14/22 blood sugar diagnostic (FreeStyle #100 ea 07/15/22 Test strips) amlodipine 10 mg tablet 10 mg PO DAILY #30 tabs 10/04/22 ferrous sulfate 325 mg (65 mg 325 mg PO DAILY 90 days #90 tabs 11/03/22 iron) tablet lorazepam 1 mg tablet 1 mg PO BID PRN agitation 30 days 11/15/22 #60 tabs zolpidem 10 mg tablet 10 mg PO DAILY 30 days #30 tabs 11/15/22 doxycycline hyclate 100 mg tablet 100 mg PO BID 30 days #60 tabs 11/19/22 diclofenac sodium 1 % topical gel 2 g topical QID 30 days #100 grams 11/20/22 Allergies Allergy/AdvReac Type Severity Reaction Status Date / Time No Known Allergies Allergy Verified 09/12/22 10:58 Review of Systems Review of Systems: Yes all other systems are reviewed and are negative [facility] Past Medical History Medical History Asthma Atrial fibrillation Chronic atrial fibrillation Depression with anxiety Diabetes mellitus Dyslipidemia Employs prosthetic leg Encounter for wheelchair assessment Essential hypertension GERD (gastroesophageal reflux disease) History of heroin use Insomnia Obesity Osteomyelitis Surgical History Absence of right lower leg below knee Amputated toe of left foot Below-knee amputation of left lower extremity S/P BKA (below knee amputation) bilateral Family History Family History Father Medical history unknown Mother Diabetes Hypertension Stroke Brother No problems noted. Brother No problems noted. Son No problems noted. Daughter No problems noted. Social History Social History Household Members: None Housing: Homeless Do you presently have visiting nurse or other home services: Yes (q 3 days wound care) Alcohol intake: never Patient Tobacco Use Status: Former Tobacco user Tobacco use type: Cigarette e-Cigarette/Vaping Use: Never Used Second Hand Smoke Exposure: No Substance Use Type: Crack/Cocaine service: No Current occupational status: disabled Current occupational exposures/hazards: No Cognitive needs: Yes (wheelchair) Hearing needs: No Vision needs: No Physical Exam Vital Signs: Vital Signs: Last Vital Signs Temp 98.5 F 11/25/22 07:11 Pulse 57 11/25/22 07:11 Resp 18 11/25/22 07:11 BP 127/59 L 11/25/22 07:11 Pulse Ox 98 11/25/22 07:11 O2 Del Method Room Air 11/25/22 07:11 BMI result Body Mass Index 31.7 Appearance: Alert. Oriented X3. No acute distress. Eyes: PERRLA, No Nystagmus ENT: Pharynx normal. Oral Mucosa moist Neck: Normal inspection. Neck supple. CVS: Normal heart rate and rhythm. Pulses normal. Respiratory: No respiratory distress. Equal air entry bilateral, no wheezing/rales/rhonchi Abdomen: Soft and nontender. Bowel sounds are present, no mass palpable, no CVA tenderness Skin: Skin warm and dry. Normal skin color. Normal skin turgor. Extremities: . No calf tenderness Bilateral BKA Nonhealing wound as in the picture Neuro: Oriented X 3. No motor deficit. No sensory deficit.No cerebellar signs , cranial nerves II-XII intact Course Course Course Narrative: This is an RME: Additional HPI, ROS, PE not included below will be deferred to primary provider. This is a [id number], with a history of diabetes, presenting to the emergency department with complaints of left stump wound check. Previously seen here for left stump infection, hx of group b strep, given IV abx on 09/14. Plan: Labs ordered Medications Administered Generic Name Dose Route Start Last Admin Trade Name Freq PRN Reason Stop Dose Admin Acetaminophen 650 mg 11/17/22 23:25 11/24/22 17:47 Acetaminophen 325 Mg Tablet PO 650 mg Q6H PRN Administration Pain, Mild (Pain Scale 1-3) Amlodipine Besylate 10 mg 11/18/22 09:00 11/25/22 08:11 Amlodipine Besylate 10 Mg Tablet PO 10 mg DAILY ABISAI Administration Protocol Apixaban 5 mg 11/18/22 09:00 11/25/22 08:11 Apixaban 5 Mg Tablet PO 5 mg BID ABISAI Administration Atorvastatin Calcium 80 mg 11/18/22 09:00 11/25/22 08:11 Atorvastatin Calcium 80 Mg Tablet PO 80 mg DAILY ABISAI Administration Carbamide Peroxide 5 drop 11/22/22 09:00 11/25/22 08:11 Carbamide Peroxide 6.5% Otic 15 Ml Drpbtl EAR-BOTH 11/26/22 08:06 5 drop BID ABISAI Administration Docusate Sodium 100 mg 11/17/22 23:25 11/20/22 06:17 Docusate Sodium 100 Mg Capsule PO 100 mg DAILY PRN Administration Constipation Doxycycline Monohydrate 100 mg 11/19/22 21:00 11/25/22 08:11 Doxycycline Monohydrate 100 Mg Capsule PO 100 mg BID ABISAI Administration Ferrous Sulfate 324 mg 11/18/22 09:00 11/25/22 08:11 Ferrous Sulfate 324 Mg Tablet. PO 324 mg DAILY ABISAI Administration Furosemide 40 mg 11/18/22 09:00 11/25/22 08:11 Furosemide 40 Mg Tablet PO 40 mg DAILY [facility] Administration Protocol Insulin Glargine 15 unit 11/20/22 21:00 11/24/22 20:37 Insulin Glargine,Hum.Rec.Anlog 100 Unit/Ml 10 Ml Vial SUBCUT 15 unit BEDTIME [facility] Administration Insulin Human Lispro 0 unit 11/18/22 07:30 11/25/22 11:41 Insulin Lispro 100 Unit/Ml 3 Ml Vial SUBCUT 8 unit QIDACHS [facility] Administration Protocol Insulin Human Lispro 5 unit 11/22/22 16:30 11/25/22 11:41 Insulin Lispro 100 Unit/Ml 3 Ml Vial SUBCUT 5 unit QIDACHS [facility] Administration Lisinopril 30 mg 11/18/22 09:00 11/25/22 08:11 Lisinopril 10 Mg Tablet PO 30 mg DAILY ABISAI Administration Protocol Methadone HCl 10 mg 11/19/22 09:00 11/25/22 08:11 Methadone Hcl 20 Mg/2 Ml Oral.Conc PO 10 mg DAILY ABISAI Administration Omeprazole 20 mg 11/18/22 09:00 11/25/22 05:49 Omeprazole 20 Mg Capsule. PO 20 mg DAILY@0630 ABISAI Administration Oxycodone HCl 5 mg 11/23/22 13:46 11/25/22 07:20 Oxycodone Hcl Immed Release 5 Mg Tablet PO 5 mg Q4H PRN Administration Pain, Moderate(Pain Scale 4-6) Sodium Chloride 3 ml 11/18/22 00:00 11/25/22 07:24 0.9 % Sodium Chloride Flush 3 Ml Syringe IVFLUSH Not Given QSHIFT [facility] Vitamin D 25 mcg 11/18/22 09:00 11/25/22 08:11 Cholecalciferol (Vitamin D3) 25 Mcg Tablet PO 25 mcg DAILY ABISAI Administration Zolpidem Tartrate 5 mg 11/24/22 21:00 11/24/22 21:20 Zolpidem Tartrate 5 Mg Tablet PO 5 mg BEDTIME ABISAI Administration Discontinued Medications Generic Name Dose Route Start Last Admin Trade Name Freq PRN Reason Stop Dose Admin Bisacodyl 5 mg 11/20/22 09:40 11/20/22 11:37 Bisacodyl 5 Mg Tablet.Dr PO 11/20/22 09:41 5 mg ONCE ONE Administration Calcium Carbonate 750 mg 11/25/22 00:36 11/25/22 00:40 Calcium Carbonate 750 Mg Tab.Chew PO 11/25/22 00:37 750 mg ONCE ONE Administration Gadobutrol 10 ml 11/18/22 13:37 11/18/22 13:38 Gadobutrol 10 Ml Vial IVPUSH 11/18/22 13:38 10 ml ONCE ONE Administration Vancomycin HCl 2,000 mg in 500 mls @ 250 mls/hr 11/17/22 20:31 11/18/22 01:55 Vancomycin/Ns IV 11/17/22 22:30 Infused ONCE ONE Infusion Piperacillin Sod/Tazobactam 50 mls @ 100 mls/hr 11/17/22 20:31 11/17/22 22:39 Sod 3.375 gm/ Sodium Chloride IV 11/17/22 21:00 Infused ONCE ONE Infusion Sodium Chloride 1,000 mls @ 999 mls/hr 11/18/22 00:11 11/18/22 02:04 Ns IV 11/18/22 01:11 Infused .Q1H1M ONE Infusion Lactated Ringer's 1,000 mls @ 100 mls/hr 11/18/22 00:45 11/19/22 08:10 Lr IVCONT Infused .Q10H ABISAI Infusion Piperacillin Sod/Tazobactam 50 mls @ 100 mls/hr 11/18/22 17:00 11/19/22 10:52 Sod 3.375 gm/ Sodium Chloride IV Infused Q6H ABISAI Infusion Vancomycin HCl 1,250 mg/ 250 mls @ 166.667 mls/hr 11/18/22 18:00 11/18/22 21:17 Sodium Chloride IV Infused Q12H ABISAI Infusion Vancomycin HCl 1,250 mg/ 250 mls @ 166.667 mls/hr 11/19/22 08:00 11/19/22 10:01 Sodium Chloride IV Infused Q12H ABISAI Infusion Insulin Glargine 10 unit 11/18/22 21:00 11/19/22 20:54 Insulin Glargine,Hum.Rec.Anlog 100 Unit/Ml 10 Ml Vial SUBCUT 10 unit BEDTIME ABISAI Administration Ketorolac Tromethamine 30 mg 11/23/22 01:07 11/23/22 01:22 Ketorolac Tromethamine 30 Mg/Ml Vial IVPUSH 11/23/22 01:08 30 mg ONCE ONE Administration Ketorolac Tromethamine 15 mg 11/23/22 20:41 11/23/22 21:02 Ketorolac Tromethamine 15 Mg/Ml Vial IVPUSH 11/23/22 20:42 15 mg ONCE ONE Administration Lorazepam 1 mg 11/18/22 06:57 11/23/22 01:25 Lorazepam 1 Mg Tablet PO 1 mg BID PRN Administration agitation Lorazepam 1 mg 11/23/22 20:43 11/23/22 21:01 Lorazepam 1 Mg Tablet PO 11/23/22 20:44 1 mg ONCE ONE Administration Methadone HCl 10 mg 11/18/22 14:00 11/18/22 14:05 Methadone Hcl 20 Mg/2 Ml Oral.Conc PO 11/18/22 14:01 10 mg ONCE ONE Administration Zolpidem Tartrate 5 mg 11/18/22 09:00 11/22/22 19:43 Zolpidem Tartrate 5 Mg Tablet PO 5 mg BEDTIME ABISAI Administration Zolpidem Tartrate 5 mg 11/23/22 20:43 11/23/22 21:02 Zolpidem Tartrate 5 Mg Tablet PO 11/23/22 20:44 5 mg ONCE ONE Administration Medical Decision Making Medical Decision Making MDM Narrative: Patient on healing wound of left BKA stump with diabetes x-ray showed increase in bony erosion likely patient has acute on chronic osteomyelitis with increased purulent discharge. Will admit patient for IV antibiotics surgeon to follow patient has normal WBC count will likely place level is slightly elevated to 2.4 patient is on metformin could be secondary to metformin no other signs of sepsis. Admission/Observation Consideration of admission/observation: Escalation of care including admission/observation considered Consult Healthcare Provider Management of the patient was discussed with: Hospitalist Lab Data MDM Lab Attestation statement: I reviewed the patient's lab results. 11/17/22 19:56 11/17/22 19:56 Labs: Lab Results 11/17/22 11/17/22 11/17/22 Range/Units 19:56 19:56 19:56 WBC 10.7 (4.8-10.8) X10*3/uL RBC 4.64 (4.60-5.80) X10*6/uL Hgb 13.1 L (14.0-18.0) g/dl Hct 40.1 L (42.0-52.0) % MCV 86.4 (80.0-98.0) fL MCH 28.2 (27.0-33.0) pg MCHC 32.7 (31.0-36.0) g/dl RDW 14.3 (11.0-16.0) % Plt Count 318 (160-400) X10*3/uL MPV 10.1 (9.4-12.4) fL Immature Gran % (Auto) 0.5 H (0.0-0.4) % Neut % (Auto) 54.9 (45-73) % Lymph % (Auto) 36.4 (20-40) % [place] % (Auto) 6.5 (2-11) % Eos % (Auto) 1.1 (0-4) % Baso % (Auto) 0.6 (0-2) % Lymph # (Auto) 3.9 (1.2-4.9) X10*3/uL [place] # (Auto) 0.7 (0.1-1.2) X10*3/uL Eos # (Auto) 0.1 (0.0-0.4) X10*3/uL Baso # (Auto) 0.1 (0.0-0.2) X10*3/uL Abs Immat Gran (auto) 0.05 H (0.00-0.03) X10*3/uL Absolute Neuts (auto) 5.9 (2.0-8.3) x10*3/uL Absolute Nucleated RBC 0.000 (0.0-0.012) X10*3/uL Nucleated RBC % (auto) 0.0 (0.0-0.2) /100WBC ESR 77 H (0-15) MM/HR Sodium 137 (135-145) mmol/L Potassium 4.7 D (3.3-5.1) mmol/L Chloride 104 (96-108) mmol/L Carbon Dioxide 26 (22-29) mmol/L Anion Gap 12 (12-20) BUN 20 H (9-16) mg/dL Creatinine 0.88 (0.5-1.4) mg/dL Estim Creat Clear Calc 129.3 Estimated GFR > 60 Random Glucose 223 H (60-115) mg/dL Lactic Acid (0.5-2.0) mmol/L Lactic Acid F/U @ 2Hr (0.5-2.0) mmol/L Calcium 9.1 D (8.4-10.2) mg/dL Magnesium 1.8 (1.6-2.6) mg/dL Total Bilirubin 0.3 (0.0-1.0) mg/dL Direct Bilirubin 0.1 (0.0-0.5) mg/dL AST 31 (5-37) U/L ALT 16 (0-40) U/L Alkaline Phosphatase 137 H (39-117) U/L C-Reactive Protein 0.70 H (< or = 0.50) mg/dL Total Protein 5.2 L (6.5-8.0) g/dL Albumin 2.0 L (3.5-5.0) g/dL Lipase 13 (8-78) U/L 11/17/22 11/17/22 Range/Units 20:44 22:59 WBC (4.8-10.8) X10*3/uL RBC (4.60-5.80) X10*6/uL Hgb (14.0-18.0) g/dl Hct (42.0-52.0) % MCV (80.0-98.0) fL MCH (27.0-33.0) pg MCHC (31.0-36.0) g/dl RDW (11.0-16.0) % Plt Count (160-400) X10*3/uL MPV (9.4-12.4) fL Immature Gran % (Auto) (0.0-0.4) % Neut % (Auto) (45-73) % Lymph % (Auto) (20-40) % [place] % (Auto) (2-11) % Eos % (Auto) (0-4) % Baso % (Auto) (0-2) % Lymph # (Auto) (1.2-4.9) X10*3/uL [place] # (Auto) (0.1-1.2) X10*3/uL Eos # (Auto) (0.0-0.4) X10*3/uL Baso # (Auto) (0.0-0.2) X10*3/uL Abs Immat Gran (auto) (0.00-0.03) X10*3/uL Absolute Neuts (auto) (2.0-8.3) x10*3/uL Absolute Nucleated RBC (0.0-0.012) X10*3/uL Nucleated RBC % (auto) (0.0-0.2) /100WBC ESR (0-15) MM/HR Sodium (135-145) mmol/L Potassium (3.3-5.1) mmol/L Chloride (96-108) mmol/L Carbon Dioxide (22-29) mmol/L Anion Gap (12-20) BUN (9-16) mg/dL Creatinine (0.5-1.4) mg/dL Estim Creat Clear Calc Estimated GFR Random Glucose (60-115) mg/dL Lactic Acid 2.3 H* (0.5-2.0) mmol/L Lactic Acid F/U @ 2Hr 2.4 H* (0.5-2.0) mmol/L Calcium (8.4-10.2) mg/dL Magnesium (1.6-2.6) mg/dL Total Bilirubin (0.0-1.0) mg/dL Direct Bilirubin (0.0-0.5) mg/dL AST (5-37) U/L ALT (0-40) U/L Alkaline Phosphatase (39-117) U/L C-Reactive Protein (< or = 0.50) mg/dL Total Protein (6.5-8.0) g/dL Albumin (3.5-5.0) g/dL Lipase (8-78) U/L Independent Interpretation I performed an independent interpretation of an: EKG Interpretation: AFib ventricular rate of 56 left axis deviation no acute ST-T changes no acute ischemia Discharge Plan Discharge Clinical Impression: Osteomyelitis of left leg, Chronic atrial fibrillation, S/P BKA (below knee amputation) bilateral Patient Disposition: Admitted As Inpatient Interventions: Admission Worksheet (ED) Last Done: 11/18/22 16:45 Discharge Date/Time: 11/18/22 16:46
[2022-11-17 20:02] LABS: MANUAL DIFF FLAG NO
[2022-11-17 20:03] LABS: Basophils Absolute Auto 0.1 X10*3/uL (0.0-0.2); Basophils Percent Auto 0.6 % (0-2); Eosinophils Absolute Auto 0.1 X10*3/uL (0.0-0.4); Eosinophils Percent Auto 1.1 % (0-4); Hematocrit 40.1 % (42.0-52.0); Hemoglobin 13.1 g/dl (14.0-18.0); Imm Gran Abs Auto 0.05 X10*3/uL (0.00-0.03); Imm Gran Pct Auto 0.5 % (0.0-0.4); Lymphocytes Absolute Auto 3.9 X10*3/uL (1.2-4.9); Lymphocytes Percent Auto 36.4 % (20-40); Mean Corpuscular HGB Conc 32.7 g/dl (31.0-36.0); Mean Corpuscular Hemoglobin 28.2 pg (27.0-33.0); Mean Corpuscular Volume 86.4 fL (80.0-98.0); Mean Platelet Volume 10.1 fL (9.4-12.4); Monocytes Absolute Auto 0.7 X10*3/uL (0.1-1.2); Monocytes Percent Auto 6.5 % (2-11); Neutrophils Absolute Auto 5.9 x10*3/uL (2.0-8.3); Neutrophils Percent Auto 54.9 % (45-73); Platelet Count 318 X10*3/uL (160-400); Red Blood Count 4.64 X10*6/uL (4.60-5.80); Red Cell Distribution Width 14.3 % (11.0-16.0); White Blood Count 10.7 X10*3/uL (4.8-10.8)
[2022-11-17 20:13] VITALS: BP 98/58; PULSE 69; RESP 18; O2SAT 98
[2022-11-17 20:19] LABS: Alanine Aminotransferase 16 U/L (0-40); Alkaline Phosphatase 137 U/L (39-117); Anion Gap 12 (12-20); Aspartate Amino Transferase 31 U/L (5-37); Bilirubin Direct 0.1 mg/dL (0.0-0.5); Bilirubin Total 0.3 mg/dL (0.0-1.0); Blood Urea Nitrogen 20 mg/dL (9-16); Calcium 9.1 mg/dL (8.4-10.2); Carbon Dioxide 26 mmol/L (22-29); Chloride 104 mmol/L (96-108); Creatinine Clr Calc Pharmacy 129.3; Estimated Glomerular Filt Rate > 60; Glucose Random 223 mg/dL (60-115); Lipase 13 U/L (8-78); Magnesium 1.8 mg/dL (1.6-2.6); Potassium 4.7 mmol/L (3.3-5.1); Sodium 137 mmol/L (135-145); Total Protein 5.2 g/dL (6.5-8.0)
[2022-11-17 20:46] VITALS: BMI 31.7
[2022-11-17] MEDS: Piperacillin Sodium/Tazobactam 3.375 GM in 0.9 % Sodium Chloride 50 ML IV (20:58)
--- NOTE | 2022-11-17 21:06 | PC.NURSE ---
Pt aox4 resting at the bedside. Bilateral BKA. Wound/ulcer noted to the left BKA, with purulent drainage. Second set of blood cultures drawn and sent. Medicated with ab as ordered. Pt tolerated well. Call serrano within reach.
[2022-11-17 21:09] LABS: Lactic Acid 2.3 mmol/L (0.5-2.0)
[2022-11-17 22:30] VITALS: BP 90/54; PULSE 55; RESP 14; O2SAT 96
[2022-11-17] MEDS: vancomycin/NS 2,000 MG/500 ML PLAST..BAG 250 MG IV (22:39)
[2022-11-17 22:47] LABS: Reflex Lactate? Lactic Acid Added
[2022-11-17 23:18] LABS: ~Lactic Acid-LAB USE ONLY 2.4 mmol/L (0.5-2.0)
[2022-11-17 23:26] VITALS: BP 115/61; PULSE 47; RESP 16; TEMP 36.2; O2SAT 97
[2022-11-17 23:48] LABS: Erythrocyte Sedimentation Rate 77 MM/HR (0-15)
--- NOTE | 2022-11-18 00:16 | ECG_ITS ---
Test Reason : AFIB Blood Pressure : / mmHG Vent. Rate : 056 BPM Atrial Rate : 000 BPM P-R Int : 000 ms QRS Dur : 096 ms QT Int : 456 ms P-R-T Axes : 000 -40 000 degrees QTc Int : 440 ms Atrial fibrillation with slow ventricular response Left axis deviation Septal infarct , age undetermined Abnormal ECG When compared with ECG of 16-MAR-2021 07:58, Vent. rate has decreased BY 27 BPM Referred By: Ronan Martinez Electronically Signed By:RIVAS EVANGELISTA MD
[2022-11-18] MEDS: 0.9 % Sodium Chloride 1,000 ML 999 ML IV (00:58)
[2022-11-18 01:02] LABS: Reflex Lactate? 2 Y
[2022-11-18 01:49] LABS: Glucose, Whole Blood 267 mg/dL (60-115)
[2022-11-18] MEDS: Lactated Ringers 1,000 ML 100 ML IVCONT ×3 (01:54→19:49)
[2022-11-18 02:23] LABS: ~Lactic Acid-LAB USE ONLY 2.6 mmol/L (0.5-2.0)
--- NOTE | 2022-11-18 02:30 | PC.NURSE ---
pt brought over to overflow from main ED, transferred from stretcher to bed. pt visibly in pain, this RN offered pain medication, pt denied at the time. maintence fluids started on patient. Pt is now sleeping, respirations even and unlabored awaiting bed assignment at this time
--- NOTE | 2022-11-18 05:51 | PC.NURSE ---
pt resting at this time, respirations even and unlabored, skin pwd, reports 8/10 pain in left stump, declines tylenol for pain. awaiting bed assignment at this time
[2022-11-18 05:55] LABS: MANUAL DIFF FLAG NO
[2022-11-18 05:57] LABS: Basophils Percent Auto 0.5 % (0-2); Eosinophils Absolute Auto 0.3 X10*3/uL (0.0-0.4); Eosinophils Percent Auto 4.2 % (0-4); Hematocrit 34.7 % (42.0-52.0); Hemoglobin 11.2 g/dl (14.0-18.0); Imm Gran Abs Auto 0.04 X10*3/uL (0.00-0.03); Imm Gran Pct Auto 0.5 % (0.0-0.4); Lymphocytes Absolute Auto 2.6 X10*3/uL (1.2-4.9); Lymphocytes Percent Auto 33.3 % (20-40); Mean Corpuscular HGB Conc 32.3 g/dl (31.0-36.0); Mean Corpuscular Hemoglobin 27.3 pg (27.0-33.0); Mean Corpuscular Volume 84.4 fL (80.0-98.0); Monocytes Absolute Auto 0.6 X10*3/uL (0.1-1.2); Monocytes Percent Auto 7.4 % (2-11); Neutrophils Absolute Auto 4.1 x10*3/uL (2.0-8.3); Neutrophils Percent Auto 54.1 % (45-73); Platelet Count 249 X10*3/uL (160-400); Red Blood Count 4.11 X10*6/uL (4.60-5.80); Red Cell Distribution Width 14.4 % (11.0-16.0); White Blood Count 7.7 X10*3/uL (4.8-10.8)
[2022-11-18 06:14] LABS: Anion Gap 10 (12-20); Blood Urea Nitrogen 18 mg/dL (9-16); Calcium 8.4 mg/dL (8.4-10.2); Carbon Dioxide 25 mmol/L (22-29); Chloride 107 mmol/L (96-108); Creatinine Clr Calc Pharmacy 129.5; Estimated Glomerular Filt Rate > 60; Glucose Random 230 mg/dL (60-115); Potassium 4.3 mmol/L (3.3-5.1); Sodium 138 mmol/L (135-145)
[2022-11-18 06:19] VITALS: BP 130/73; PULSE 67; RESP 16; TEMP 36.6; O2SAT 98
[2022-11-18 06:21] LABS: Glucose, Whole Blood 184 mg/dL (60-115)
--- NOTE | 2022-11-18 06:21 | P.HPHOSP_ITS ---
History of Present Illness Date of Service: 11/18/22 Chief Complaint: nonhealing wound 62-year-old male past medical history of diabetes, hypertension, AFib, status post bilateral BKA, dyslipidemia, asthma, presents the hospital with complaints of nonhealing left stump wound. Patient reports that the wound at this time started about 4 months ago, he has been going to wound care clinic every week, he reports that he went today and they sent into the hospital. He states that he was on antibiotics for the wound about a month ago for complete 30 days with no resolution of the wound, the wound is draining, nontender, he denies any fever, no chills, denies any chest pain, no shortness of breath, no abdominal p ain nausea or vomiting, no diarrhea constipation. Of note patient is homeless and lives in the [facility] according to him On arrival to the ED patient hemodynamically stable with no significant abnormal vitals Labs are significant for WBC count of 10.7, ESR of 77, CRP of 0.7, and lactic acid of 2.3 X-ray of the tibia/fibula shows findings in the appearance of bone in the anterior inferior aspect of the tibial region, infection cannot be excluded, Patient started on IV antibiotics will be admitted for further management Review of Systems Review of Systems: Yes all other systems are reviewed and are negative [facility], LAT[facility] Medical History (Updated 11/18/22 @ 06:34 by Dorota Delarosa MD) Asthma Atrial fibrillation Chronic atrial fibrillation Depression with anxiety Diabetes mellitus Dyslipidemia Employs prosthetic leg Encounter for wheelchair assessment Essential hypertension GERD (gastroesophageal reflux disease) History of heroin use Insomnia Obesity Osteomyelitis Family History Father Medical history unknown Mother Diabetes Hypertension Stroke Brother No problems noted. Brother No problems noted. Son No problems noted. Daughter No problems noted. Surgical History Absence of right lower leg below knee Amputated toe of left foot Below-knee amputation of left lower extremity S/P BKA (below knee amputation) bilateral Social History Household Members: Spouse Housing: Apartment Do you presently have visiting nurse or other home services: Yes Alcohol intake: never Patient Tobacco Use Status: Former Tobacco user Tobacco use type: Cigarette Smoked in Last 30 Days: No e-Cigarette/Vaping Use: Never Used Second Hand Smoke Exposure: No Use of substances other than those prescribed or required for medical reasons: No Substance Use Type: Crack/Cocaine Advance Directives: No Advance Directives Information Provided: No service: No Current occupational status: disabled Current occupational exposures/hazards: No Cognitive needs: Yes (wheelchair) Hearing needs: No Vision needs: No Meds Allergies Allergy/AdvReac Type Severity Reaction Status Date / Time No Known Allergies Allergy Verified 09/12/22 10:58 Active Medications: Current Medications Acetaminophen (Acetaminophen 325 Mg Tablet) 650 mg PO Q6H PRN PRN Reason: Pain, Mild (Pain Scale 1-3) Docusate Sodium (Docusate Sodium 100 Mg Capsule) 100 mg PO DAILY PRN PRN Reason: Constipation Lactated Ringer's (Lr) 1,000 mls @ 100 mls/hr IVCONT .Q10H [facility] Last Admin: 11/18/22 01:54 Dose: 100 mls/hr Ondansetron HCl (Ondansetron Hcl 4 Mg/2 Ml Vial) 4 mg IVPUSH Q8H PRN PRN Reason: Nausea and Vomiting Sodium Chloride (0.9 % Sodium Chloride Flush 3 Ml Syringe) 3 ml IVFLUSH QSHIFT [facility] Last Admin: 11/18/22 00:58 Dose: Not Given Home Medications Medication Instructions Recorded Confirmed Last Taken Type methadone 10 mg/mL oral syringe 20 mg PO DAILY 03/15/21 08/31/22 03/14/21 History (FOR ORAL USE ONLY) 20 mg Physical Exam Vital Signs and Narrative: Vital Signs: Last Vital Signs Temp 97.9 F 11/18/22 06:19 Pulse 67 11/18/22 06:19 Resp 16 11/18/22 06:19 BP 130/73 11/18/22 06:19 Pulse Ox 98 11/18/22 06:19 O2 Del Method Room Air 11/18/22 06:19 BMI result Body Mass Index 31.7 Const: General: cooperative and no acute distress Orientation/consciousness: patient oriented x3 Eyes: General: appearance normal, both eyes and all related structures Pupils: Equal, round and reactive pupils present Resp: Effort & Inspection: normal respiratory effort Auscultation: clear to auscultation bilaterally Cardio: Rate: regular rate Rhythm: regular rhythm GI: Palpation (GI): Soft to palpation Auscultation: normal bowel sounds Skin: Other: Open wound in the left stump, draining serosanguineous fluid, please see picture below Neuro: General: patient oriented x3 Cranial nerves: Yes Equal, round and reactive pupils present Cognition (Neuro): normal cognition Extrem: Other: Results Labs 11/18/22 05:44 11/18/22 05:44 Labs: Laboratory Results - last 24 hr 11/17/22 11/17/22 11/17/22 19:56 19:56 19:56 MCV 86.4 MCH 28.2 MCHC 32.7 RDW 14.3 Plt Count 318 MPV 10.1 Immature Gran % (Auto) 0.5 H Neut % (Auto) 54.9 Lymph % (Auto) 36.4 [place] % (Auto) 6.5 Eos % (Auto) 1.1 Baso % (Auto) 0.6 Lymph # (Auto) 3.9 [place] # (Auto) 0.7 Eos # (Auto) 0.1 Baso # (Auto) 0.1 Abs Immat Gran (auto) 0.05 H Absolute Neuts (auto) 5.9 Absolute Nucleated RBC 0.000 Nucleated RBC % (auto) 0.0 ESR 77 H Anion Gap 12 Estim Creat Clear Calc 129.3 Estimated GFR > 60 POC Glucose Random Glucose 223 H Lactic Acid Lactic Acid F/U @ 2Hr Lactic Acid F/U @ 4Hr Calcium 9.1 D Magnesium 1.8 Total Bilirubin 0.3 Direct Bilirubin 0.1 AST 31 ALT 16 Alkaline Phosphatase 137 H C-Reactive Protein 0.70 H Total Protein 5.2 L Albumin 2.0 L Lipase 13 11/17/22 11/17/22 11/18/22 20:44 22:59 01:45 MCV MCH MCHC RDW Plt Count MPV Immature Gran % (Auto) Neut % (Auto) Lymph % (Auto) [place] % (Auto) Eos % (Auto) Baso % (Auto) Lymph # (Auto) [place] # (Auto) Eos # (Auto) Baso # (Auto) Abs Immat Gran (auto) Absolute Neuts (auto) Absolute Nucleated RBC Nucleated RBC % (auto) ESR Anion Gap Estim Creat Clear Calc Estimated GFR POC Glucose 267 H Random Glucose Lactic Acid 2.3 H* Lactic Acid F/U @ 2Hr 2.4 H* Lactic Acid F/U @ 4Hr Calcium Magnesium Total Bilirubin Direct Bilirubin AST ALT Alkaline Phosphatase C-Reactive Protein Total Protein Albumin Lipase 11/18/22 11/18/22 11/18/22 01:56 05:44 05:44 MCV 84.4 MCH 27.3 MCHC 32.3 RDW 14.4 Plt Count 249 MPV 10.0 Immature Gran % (Auto) 0.5 H Neut % (Auto) 54.1 Lymph % (Auto) 33.3 [place] % (Auto) 7.4 Eos % (Auto) 4.2 H Baso % (Auto) 0.5 Lymph # (Auto) 2.6 [place] # (Auto) 0.6 Eos # (Auto) 0.3 Baso # (Auto) 0.0 Abs Immat Gran (auto) 0.04 H Absolute Neuts (auto) 4.1 Absolute Nucleated RBC 0.000 Nucleated RBC % (auto) 0.0 ESR Anion Gap 10 L Estim Creat Clear Calc 129.5 Estimated GFR > 60 POC Glucose Random Glucose 230 H Lactic Acid Lactic Acid F/U @ 2Hr Lactic Acid F/U @ 4Hr 2.6 H* Calcium 8.4 D Magnesium Total Bilirubin Direct Bilirubin AST ALT Alkaline Phosphatase C-Reactive Protein Total Protein Albumin Lipase Imaging Radiologist's Impressions: Impressions Tibia/Fibula X-Ray 11/17/22 21:03 IMPRESSION: Findings as described above. Some change in the appearance of bone in the anterior inferior aspect of the tibial region. Infection cannot be excluded. Recommend pre and postcontrast MRI for full evaluation. Assessment and Plan (1) Non-healing wound of amputation stump: Status: Acute (2) Diabetic leg ulcer: Status: Acute (3) Elevated erythrocyte sedimentation rate: Status: Acute (4) Lactic acidosis: Status: Acute (5) Atrial fibrillation: Status: Inactive Plan 8-year-old male with past medical history of diabetes presents the hospital with complaints of nonhealing left stump wound being evaluated outpatient, and sent to the hospital by wound clinic # nonhealing stump wound/diabetic ulcer - elevated ESR, afebrile, no leukocytosis - possibly acute versus chronic osteomyelitis - will obtain MRI of the leg - will start on broad-spectrum IV antibiotics - follow cultures - infectious disease consulted # lactic acidosis - likely secondary to acute infection, patient with slight low blood pressure - will treat with IV fluids - trend # diabetes - low-dose sliding scale insulin - diabetic diet # hypertension - stable - continue home antihypertensives # history of AFib - continue Eliquis, metoprolol DVT prophylaxis: Eliquis Given patient's need for further evaluation, failed outpatient therapy, requiring IV antibiotics, patient will require minimum 2 nights inpatient hospital stay for further management and monitoring Time Spent With Patient Time: Total time managing care of this patient today ____ minutes. Quality Stroke Does the patient have a stroke diagnosis?: No VTE Prior VTE?: No VTE Risk Level:: Medical - moderate - high VTE Device Contraindication: Treatment Not Indicated VTE Drug Contraindication: N/A - Med Ordered
[2022-11-18 07:15] LABS: Glucose, Whole Blood 205 mg/dL (60-115)
--- NOTE | 2022-11-18 07:18 | PHA.MEDREC ---
Pharmacy Consult ? Medication Reconciliation Pharmacy has reviewed the medication reconciliation.
[2022-11-18] MEDS: Ferrous Sulfate 324 MG TABLET.DR PO (07:42)
[2022-11-18] MEDS: Insulin Lispro 100 UNIT/ML 3 ML VIAL SUBCUT ×4 (07:42→20:51)
[2022-11-18] MEDS: Furosemide 40 MG TABLET PO (07:42)
[2022-11-18] MEDS: Atorvastatin Calcium 80 MG TABLET PO (07:43)
[2022-11-18] MEDS: Apixaban 5 MG TABLET PO ×2 (07:43→20:51)
[2022-11-18] MEDS: lisinopriL 10 MG TABLET 30 MG PO (07:43)
[2022-11-18] MEDS: Cholecalciferol (Vitamin D3) 25 MCG TABLET PO (07:43)
[2022-11-18] MEDS: amLODIPine Besylate 10 MG TABLET PO (07:43)
[2022-11-18] MEDS: Omeprazole 20 MG CAPSULE.DR PO (07:43)
--- NOTE | 2022-11-18 08:52 | PC.NURSE ---
MRI screening from scanned to MRI
--- NOTE | 2022-11-18 09:11 | PC.NURSE ---
patient alert, oriented x4. transfers self from bed to wheelchair. able to make needs known. call serrano within reach
--- NOTE | 2022-11-18 10:28 | PC.NURSE ---
methadone verification scanned to pharmacy
[2022-11-18 11:21] LABS: Glucose, Whole Blood 198 mg/dL (60-115)
--- NOTE | 2022-11-18 13:55 | HE.PHANOTE ---
RE: Methadone Verification Patient methadone verification received last dose was on 11/17/22 06:23 for methadone 10mg dose at [facility].
[2022-11-18] MEDS: methADONE HCl 20 MG/2 ML ORAL.CONC 10 MG PO (14:05)
--- NOTE | 2022-11-18 14:40 | MHC.CM.ED ---
Received notification from [facility] that patient is active with their agency. Patient is typically homeless but was staying with a friend. However, that housing is so longer available because his friend was evicted from the apartment. Continue to monitor for d/c needs.
[2022-11-18 16:00] VITALS: BP 145/92; PULSE 52; RESP 18; TEMP 36; O2SAT 97
[2022-11-18] MEDS: 0.9 % Sodium Chloride Flush 3 ML SYRINGE IVFLUSH ×2 (16:15→23:02)
--- NOTE | 2022-11-18 16:32 | HO.PM.IMPN ---
Subjective Subjective Date of Service: 11/18/22 Interval History: seen and examined this morning follow up for nonhealing stump wound denies any pain, no fever, no chills Review of Systems Review of Systems: Yes all other systems are reviewed and are negative Constitutional Constitutional: Denies chills and Denies fever(s) Cardiovascular Cardiovascular: Denies chest pain, Denies palpitations and Denies dyspnea Respiratory Respiratory: Denies cough and Denies dyspnea Gastrointestinal Gastrointestinal: Denies abdominal pain, Denies diarrhea, Denies nausea and Denies vomiting Endocrine Endocrine: Denies palpitations Physical Exam Vital Signs: Vital Signs: Last Vital Signs Temp 97.9 F 11/18/22 06:19 Pulse 67 11/18/22 06:19 Resp 16 11/18/22 06:19 BP 130/73 11/18/22 06:19 Pulse Ox 98 11/18/22 06:19 O2 Del Method Room Air 11/18/22 06:19 BMI result Body Mass Index 31.7 Objective Data Active Medications Acetaminophen (Acetaminophen 325 Mg Tablet) 650 mg PO Q6H PRN PRN Reason: Pain, Mild (Pain Scale 1-3) Albuterol Sulfate (Albuterol Sulfate 90 Mcg 8 Gm Inhaler) 2 puff INHALE RQ6H PRN PRN Reason: wheezing Amlodipine Besylate (Amlodipine Besylate 10 Mg Tablet) 10 mg PO DAILY [facility]; Protocol Last Admin: 11/18/22 07:43 Dose: 10 mg Documented By: ADELA Apixaban (Apixaban 5 Mg Tablet) 5 mg PO BID [facility] Last Admin: 11/18/22 07:43 Dose: 5 mg Documented By: ADELA Atorvastatin Calcium (Atorvastatin Calcium 80 Mg Tablet) 80 mg PO DAILY [facility] Last Admin: 11/18/22 07:43 Dose: 80 mg Documented By: ADELA Docusate Sodium (Docusate Sodium 100 Mg Capsule) 100 mg PO DAILY PRN PRN Reason: Constipation Ferrous Sulfate (Ferrous Sulfate 324 Mg Tablet.) 324 mg PO DAILY [facility] Last Admin: 11/18/22 07:42 Dose: 324 mg Documented By: ADELA Furosemide (Furosemide 40 Mg Tablet) 40 mg PO DAILY [facility]; Protocol Last Admin: 11/18/22 07:42 Dose: 40 mg Documented By: ADELA Glucose (Glucose Gel 15 Gm Gel..Gram.) 15 gm PO Q15M PRN; Protocol PRN Reason: per Hypoglycemia Standing Ord. Lactated Ringer's (Lr) 1,000 mls @ 100 mls/hr IVCONT .Q10H [facility] Last Admin: 11/18/22 11:36 Dose: 100 mls/hr Documented By: ADELA Dextrose (D10) 250 mls @ 750 mls/hr IV Q15M PRN; Protocol PRN Reason: per Hypoglycemia Standing Ord. Insulin Human Lispro (Insulin Lispro 100 Unit/Ml 3 Ml Vial) 0 unit SUBCUT QIDACHS [facility]; Protocol Last Admin: 11/18/22 11:36 Dose: 2 unit Documented By: ADELA Lisinopril (Lisinopril 10 Mg Tablet) 30 mg PO DAILY [facility]; Protocol Last Admin: 11/18/22 07:43 Dose: 30 mg Documented By: ADELA Lorazepam (Lorazepam 1 Mg Tablet) 1 mg PO BID PRN PRN Reason: agitation Omeprazole (Omeprazole 20 Mg Capsule.Dr) 20 mg PO DAILY@0630 [facility] Last Admin: 11/18/22 07:43 Dose: 20 mg Documented By: ADELA Ondansetron HCl (Ondansetron Hcl 4 Mg/2 Ml Vial) 4 mg IVPUSH Q8H PRN PRN Reason: Nausea and Vomiting Sodium Chloride (0.9 % Sodium Chloride Flush 3 Ml Syringe) 3 ml IVFLUSH QSHIFT [facility] Last Admin: 11/18/22 16:15 Dose: 3 ml Documented By: ADELA Vitamin D (Cholecalciferol (Vitamin D3) 25 Mcg Tablet) 25 mcg PO DAILY [facility] Last Admin: 11/18/22 07:43 Dose: 25 mcg Documented By: ADELA Zolpidem Tartrate (Zolpidem Tartrate 5 Mg Tablet) 5 mg PO BEDTIME [facility] Last Admin: 11/18/22 08:02 Dose: Not Given Documented By: ADELA Non-Admin Reason: sleep med Labs 11/18/22 05:44 11/18/22 05:44 Labs: Laboratory Results - last 24 hr 11/17/22 11/17/22 11/17/22 19:56 19:56 19:56 MCV 86.4 MCH 28.2 MCHC 32.7 RDW 14.3 Plt Count 318 MPV 10.1 Immature Gran % (Auto) 0.5 H Neut % (Auto) 54.9 Lymph % (Auto) 36.4 [place] % (Auto) 6.5 Eos % (Auto) 1.1 Baso % (Auto) 0.6 Lymph # (Auto) 3.9 [place] # (Auto) 0.7 Eos # (Auto) 0.1 Baso # (Auto) 0.1 Abs Immat Gran (auto) 0.05 H Absolute Neuts (auto) 5.9 Absolute Nucleated RBC 0.000 Nucleated RBC % (auto) 0.0 ESR 77 H Anion Gap 12 Estim Creat Clear Calc 129.3 Estimated GFR > 60 POC Glucose Random Glucose 223 H Lactic Acid Lactic Acid F/U @ 2Hr Lactic Acid F/U @ 4Hr Calcium 9.1 D Magnesium 1.8 Total Bilirubin 0.3 Direct Bilirubin 0.1 AST 31 ALT 16 Alkaline Phosphatase 137 H C-Reactive Protein 0.70 H Total Protein 5.2 L Albumin 2.0 L Lipase 13 11/17/22 11/17/22 11/18/22 20:44 22:59 01:45 MCV MCH MCHC RDW Plt Count MPV Immature Gran % (Auto) Neut % (Auto) Lymph % (Auto) [place] % (Auto) Eos % (Auto) Baso % (Auto) Lymph # (Auto) [place] # (Auto) Eos # (Auto) Baso # (Auto) Abs Immat Gran (auto) Absolute Neuts (auto) Absolute Nucleated RBC Nucleated RBC % (auto) ESR Anion Gap Estim Creat Clear Calc Estimated GFR POC Glucose 267 H Random Glucose Lactic Acid 2.3 H* Lactic Acid F/U @ 2Hr 2.4 H* Lactic Acid F/U @ 4Hr Calcium Magnesium Total Bilirubin Direct Bilirubin AST ALT Alkaline Phosphatase C-Reactive Protein Total Protein Albumin Lipase 11/18/22 11/18/22 11/18/22 01:56 05:44 05:44 MCV 84.4 MCH 27.3 MCHC 32.3 RDW 14.4 Plt Count 249 MPV 10.0 Immature Gran % (Auto) 0.5 H Neut % (Auto) 54.1 Lymph % (Auto) 33.3 [place] % (Auto) 7.4 Eos % (Auto) 4.2 H Baso % (Auto) 0.5 Lymph # (Auto) 2.6 [place] # (Auto) 0.6 Eos # (Auto) 0.3 Baso # (Auto) 0.0 Abs Immat Gran (auto) 0.04 H Absolute Neuts (auto) 4.1 Absolute Nucleated RBC 0.000 Nucleated RBC % (auto) 0.0 ESR Anion Gap 10 L Estim Creat Clear Calc 129.5 Estimated GFR > 60 POC Glucose Random Glucose 230 H Lactic Acid Lactic Acid F/U @ 2Hr Lactic Acid F/U @ 4Hr 2.6 H* Calcium 8.4 D Magnesium Total Bilirubin Direct Bilirubin AST ALT Alkaline Phosphatase C-Reactive Protein Total Protein Albumin Lipase 11/18/22 11/18/22 11/18/22 05:50 07:11 11:12 MCV MCH MCHC RDW Plt Count MPV Immature Gran % (Auto) Neut % (Auto) Lymph % (Auto) [place] % (Auto) Eos % (Auto) Baso % (Auto) Lymph # (Auto) [place] # (Auto) Eos # (Auto) Baso # (Auto) Abs Immat Gran (auto) Absolute Neuts (auto) Absolute Nucleated RBC Nucleated RBC % (auto) ESR Anion Gap Estim Creat Clear Calc Estimated GFR POC Glucose 184 H 205 H 198 H Random Glucose Lactic Acid Lactic Acid F/U @ 2Hr Lactic Acid F/U @ 4Hr Calcium Magnesium Total Bilirubin Direct Bilirubin AST ALT Alkaline Phosphatase C-Reactive Protein Total Protein Albumin Lipase Assessment and Plan (1) Diabetic leg ulcer: Status: Acute Plan 8-year-old male with past medical history of diabetes presents the hospital with complaints of nonhealing left stump wound being evaluated outpatient, and sent to the hospital by wound clinic nonhealing stump wound/diabetic ulcer does not meet SIRS MRI with possible small area of fluid of phlegmonous change or abscess - will consult general surgery abnormal signal in the anterior/midportion of the tibia suspicious for osteomyelitis - likely chronic - similar on MRI from June s/p IV and PO abx and ESR lower then previous -continue IV vanc/zosyn -infectious disease consulted lactic acidosis possibly related to metformin as no evidence of sirs T2DM Trulicity NF continue lower dose of baseline Lantus Continue SSI, ADA diet hypertension continue norvasc, lisinopril chronic atrial fibrillation HR controlled continue Eliquis doesn't appear to be on rate control CHF, unspecified no echo available continue lasix HLD continue statin OUD continue methadone DVT prophylaxis: Eduardo attending - dr. kelly requires ongoing inpatient stay for IV antibiotics and surgical evaluation Time Spent With Patient Time: Total time managing care of this patient today ____ minutes. Quality Stroke Does the patient have a stroke diagnosis?: No VTE Prior VTE?: No VTE Risk Level:: Medical - moderate - high VTE Device Contraindication: Treatment Not Indicated VTE Drug Contraindication: N/A - Med Ordered
[2022-11-18 16:58] LABS: Glucose, Whole Blood 244 mg/dL (60-115)
[2022-11-18] MEDS: Piperacillin Sodium/Tazobactam 3.375 GM in 0.9 % Sodium Chloride 50 ML IV ×2 (17:11→22:59)
[2022-11-18 19:30] VITALS: BP 117/57; PULSE 60; RESP 20; TEMP 36.2; O2SAT 95
[2022-11-18] MEDS: vancomycin HCL 1,250 MG in 0.9 % Sodium Chloride 250 ML 166.67 MG IV (19:47)
[2022-11-18 20:31] LABS: Glucose, Whole Blood 191 mg/dL (60-115)
[2022-11-18] MEDS: Insulin Glargine,Hum.rec.anlog 100 UNIT/ML 10 ML VIAL 10 UNIT SUBCUT (20:51)
[2022-11-18] MEDS: Zolpidem Tartrate 5 MG TABLET PO (20:51)
--- NOTE | 2022-11-18 22:47 | W.PM.IDCN ---
History of Present Illness Data of Consult Service Date: 11/18/22 Requesting physician: Lexus Shepard Primary Care Provider: Yoli Wilkins MD HPI Reason for consult: left stump erythema He presents per [facility] with left stump erythema and redness. He has no fever or chills. MRI shows small abscess fluid area. Review of Systems Review of Systems: Yes all other systems are reviewed and are negative PMFSH Past Medical History Medical History Asthma Atrial fibrillation Chronic atrial fibrillation Depression with anxiety Diabetes mellitus Dyslipidemia Employs prosthetic leg Encounter for wheelchair assessment Essential hypertension GERD (gastroesophageal reflux disease) History of heroin use Insomnia Obesity Osteomyelitis Family History Family History Father Medical history unknown Mother Diabetes Hypertension Stroke Brother No problems noted. Brother No problems noted. Son No problems noted. Daughter No problems noted. 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 Social History Social History Household Members: None Housing: Homeless Do you presently have visiting nurse or other home services: Yes (q 3 days wound care) Alcohol intake: never Patient Tobacco Use Status: Former Tobacco user Tobacco use type: Cigarette e-Cigarette/Vaping Use: Never Used Second Hand Smoke Exposure: No Substance Use Type: Crack/Cocaine service: No Current occupational status: disabled Current occupational exposures/hazards: No Cognitive needs: Yes (wheelchair) Hearing needs: No Vision needs: No Meds Allergies Allergy/AdvReac Type Severity Reaction Status Date / Time No Known Allergies Allergy Verified 09/12/22 10:58 Active Medications: Current Medications Acetaminophen (Acetaminophen 325 Mg Tablet) 650 mg PO Q6H PRN PRN Reason: Pain, Mild (Pain Scale 1-3) Albuterol Sulfate (Albuterol Sulfate 90 Mcg 8 Gm Inhaler) 2 puff INHALE RQ6H PRN PRN Reason: wheezing Amlodipine Besylate (Amlodipine Besylate 10 Mg Tablet) 10 mg PO DAILY [facility]; Protocol Last Admin: 11/18/22 07:43 Dose: 10 mg Apixaban (Apixaban 5 Mg Tablet) 5 mg PO BID [facility] Last Admin: 11/18/22 20:51 Dose: 5 mg Atorvastatin Calcium (Atorvastatin Calcium 80 Mg Tablet) 80 mg PO DAILY [facility] Last Admin: 11/18/22 07:43 Dose: 80 mg Docusate Sodium (Docusate Sodium 100 Mg Capsule) 100 mg PO DAILY PRN PRN Reason: Constipation Ferrous Sulfate (Ferrous Sulfate 324 Mg Tablet.Dr) 324 mg PO DAILY [facility] Last Admin: 11/18/22 07:42 Dose: 324 mg Furosemide (Furosemide 40 Mg Tablet) 40 mg PO DAILY [facility]; Protocol Last Admin: 11/18/22 07:42 Dose: 40 mg Glucose (Glucose Gel 15 Gm Gel..Gram.) 15 gm PO Q15M PRN; Protocol PRN Reason: per Hypoglycemia Standing Ord. Lactated Ringer's (Lr) 1,000 mls @ 100 mls/hr IVCONT .Q10H [facility] Last Admin: 11/18/22 19:49 Dose: 100 mls/hr Dextrose (D10) 250 mls @ 750 mls/hr IV Q15M PRN; Protocol PRN Reason: per Hypoglycemia Standing Ord. Piperacillin Sod/Tazobactam (Sod 3.375 gm/ Sodium Chloride) 50 mls @ 100 mls/hr IV Q6H [facility] Last Infusion: 11/18/22 17:20 Dose: 0 mls/hr Vancomycin HCl 1,250 mg/ (Sodium Chloride) 250 mls @ 166.667 mls/hr IV Q12H [facility] Insulin Glargine (Insulin Glargine,Hum.Rec.Anlog 100 Unit/Ml 10 Ml Vial) 10 unit SUBCUT BEDTIME [facility] Last Admin: 11/18/22 20:51 Dose: 10 unit Insulin Human Lispro (Insulin Lispro 100 Unit/Ml 3 Ml Vial) 0 unit SUBCUT QIDACHS [facility]; Protocol Last Admin: 11/18/22 20:51 Dose: 2 unit Lisinopril (Lisinopril 10 Mg Tablet) 30 mg PO DAILY [facility]; Protocol Last Admin: 11/18/22 07:43 Dose: 30 mg Lorazepam (Lorazepam 1 Mg Tablet) 1 mg PO BID PRN PRN Reason: agitation Methadone HCl (Methadone Hcl 20 Mg/2 Ml Oral.Conc) 10 mg PO DAILY [facility] Omeprazole (Omeprazole 20 Mg Capsule.Dr) 20 mg PO DAILY@0630 [facility] Last Admin: 11/18/22 07:43 Dose: 20 mg Ondansetron HCl (Ondansetron Hcl 4 Mg/2 Ml Vial) 4 mg IVPUSH Q8H PRN PRN Reason: Nausea and Vomiting Pharmacy Consult (Consult Rx Vancomycin Dosing) 1 each MISCELLANE DAILY PRN PRN Reason: Consult order Sodium Chloride (0.9 % Sodium Chloride Flush 3 Ml Syringe) 3 ml IVFLUSH QSHIFT [facility] Last Admin: 11/18/22 16:15 Dose: 3 ml Vitamin D (Cholecalciferol (Vitamin D3) 25 Mcg Tablet) 25 mcg PO DAILY [facility] Last Admin: 11/18/22 07:43 Dose: 25 mcg Zolpidem Tartrate (Zolpidem Tartrate 5 Mg Tablet) 5 mg PO BEDTIME [facility] Last Admin: 11/18/22 20:51 Dose: 5 mg Home Medications Medication Instructions Recorded Confirmed Last Taken Type albuterol sulfate 90 mcg/actuation 2 puff inhalation Q6H PRN wheezing 11/18/22 11/18/22 Unknown History aerosol inhaler (Ventolin HFA) apixaban 5 mg tablet (Eliquis) 5 mg PO BID 11/18/22 11/18/22 Unknown History cholecalciferol (vitamin D3) 25 25 mcg PO DAILY 11/18/22 11/18/22 Unknown History mcg (1,000 unit) capsule diclofenac sodium 1 % topical gel 1 ea topical DAILY 11/18/22 11/18/22 Unknown History dulaglutide 0.75 mg/0.5 mL 0.75 mg subcut QWEEK 11/18/22 11/18/22 Unknown History subcutaneous pen injector (Trulicity) insulin glargine 100 unit/mL (3 20 unit subcut BEDTIME 11/18/22 11/18/22 Unknown History mL) subcutaneous pen (Lantus Solostar U-100 Insulin) insulin lispro 100 unit/mL 28 unit subcut BID 11/18/22 11/18/22 Unknown History subcutaneous pen methadone 10 mg/mL oral concentrate 10 mg PO DAILY 11/18/22 11/18/22 11/17/22 06:23 History pantoprazole 40 mg tablet,delayed 40 mg PO DAILY 11/18/22 11/18/22 Unknown History release Physical Exam Vital Signs: Vital Signs: Last Vital Signs Temp 97.2 F 11/18/22 19:30 Pulse 60 11/18/22 19:30 Resp 20 11/18/22 19:30 BP 117/57 L 11/18/22 19:30 Pulse Ox 95 11/18/22 19:30 O2 Del Method Room Air 11/18/22 19:30 BMI result Body Mass Index 31.7 Extrem: Other: left stump only mild erythema Results Labs 11/18/22 05:44 11/18/22 05:44 Labs: Short CBC 11/18/22 Range/Units 05:44 WBC 7.7 (4.8-10.8) X10*3/uL Hgb 11.2 L (14.0-18.0) g/dl Hct 34.7 L (42.0-52.0) % Plt Count 249 (160-400) X10*3/uL BMP 11/18/22 05:44 Sodium 138 Potassium 4.3 Chloride 107 Carbon Dioxide 25 BUN 18 H Creatinine 0.83 Calcium 8.4 D Microbiology Microbiology Results: Microbiology 11/17/22 20:57 Blood - Venous Blood Culture - Preliminary Prelim: GPC Gram Stain only Assessment and Plan (1) Lactic acidosis: Status: Acute (2) Elevated erythrocyte sedimentation rate: Status: Acute (3) Diabetic leg ulcer: Status: Acute He has some abscess that is small on MRI at stump area. He has some discomfort Plan Continue IV antibiotics at this time. Would change to po Doxycycline 100 mg bid for a month after abscess drained if Surgery or IR able to do. Time Spent With Patient Time: Total time managing care of this patient today ____ minutes.
[2022-11-19 03:58] VITALS: BP 127/60; PULSE 56; RESP 16; TEMP 36.1; O2SAT 94
[2022-11-19] MEDS: Piperacillin Sodium/Tazobactam 3.375 GM in 0.9 % Sodium Chloride 50 ML IV ×2 (04:51→10:16)
[2022-11-19] MEDS: Omeprazole 20 MG CAPSULE.DR PO (04:51)
[2022-11-19] MEDS: Lactated Ringers 1,000 ML 100 ML IVCONT (04:57)
[2022-11-19 07:07] LABS: Anion Gap 11 (12-20); Blood Urea Nitrogen 15 mg/dL (9-16); Calcium 8.3 mg/dL (8.4-10.2); Carbon Dioxide 25 mmol/L (22-29); Chloride 106 mmol/L (96-108); Creatinine Clr Calc Pharmacy 136.1; Estimated Glomerular Filt Rate > 60; Glucose Random 183 mg/dL (60-115); Potassium 4.2 mmol/L (3.3-5.1); Sodium 138 mmol/L (135-145)
[2022-11-19 07:11] VITALS: BP 149/76; PULSE 63; RESP 18; TEMP 36.1; O2SAT 98
[2022-11-19 07:15] LABS: Glucose, Whole Blood 285 mg/dL (60-115)
[2022-11-19] MEDS: Insulin Lispro 100 UNIT/ML 3 ML VIAL SUBCUT ×4 (07:58→20:54)
[2022-11-19] MEDS: Atorvastatin Calcium 80 MG TABLET PO (07:59)
[2022-11-19] MEDS: methADONE HCl 20 MG/2 ML ORAL.CONC 10 MG PO (07:59)
[2022-11-19] MEDS: Ferrous Sulfate 324 MG TABLET.DR PO (07:59)
[2022-11-19] MEDS: lisinopriL 10 MG TABLET 30 MG PO (07:59)
[2022-11-19] MEDS: Cholecalciferol (Vitamin D3) 25 MCG TABLET PO (07:59)
[2022-11-19] MEDS: amLODIPine Besylate 10 MG TABLET PO (07:59)
[2022-11-19] MEDS: Apixaban 5 MG TABLET PO ×2 (07:59→20:56)
[2022-11-19] MEDS: vancomycin HCL 1,250 MG in 0.9 % Sodium Chloride 250 ML 166.67 MG IV (08:00)
[2022-11-19] MEDS: Furosemide 40 MG TABLET PO (08:00)
--- NOTE | 2022-11-19 09:29 | P.CONGS_ITS ---
History of Present Illness Consult details Consult date: 11/19/22 Reason for consult: wound care Narrative: The patient is a 62-year-old gentleman who is status post left BKA. He has been seeing Dr. Plasencia for follow-up since he has a fistula that is not currently infected nor draining. Patient denies any chest pain, difficulty breathing or shortness of breath but notes that he was seen in Wound Care. Review of Systems Review of Systems: Yes all other systems are reviewed and are negative Constitutional: Constitutional: Reports as per [facility] Past Medical History Medical History Asthma Atrial fibrillation Chronic atrial fibrillation Depression with anxiety Diabetes mellitus Dyslipidemia Employs prosthetic leg Encounter for wheelchair assessment Essential hypertension GERD (gastroesophageal reflux disease) History of heroin use Insomnia Obesity Osteomyelitis Family History Family History Father Medical history unknown Mother Diabetes Hypertension Stroke Brother No problems noted. Brother No problems noted. Son No problems noted. Daughter No problems noted. 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 Social History Social History Household Members: None Housing: Homeless Do you presently have visiting nurse or other home services: Yes (q 3 days wound care) Alcohol intake: never Patient Tobacco Use Status: Former Tobacco user Tobacco use type: Cigarette e-Cigarette/Vaping Use: Never Used Second Hand Smoke Exposure: No Substance Use Type: Crack/Cocaine service: No Current occupational status: disabled Current occupational exposures/hazards: No Cognitive needs: Yes (wheelchair) Hearing needs: No Vision needs: No Meds Allergies Allergy/AdvReac Type Severity Reaction Status Date / Time No Known Allergies Allergy Verified 09/12/22 10:58 Active Medications: Current Medications Acetaminophen (Acetaminophen 325 Mg Tablet) 650 mg PO Q6H PRN PRN Reason: Pain, Mild (Pain Scale 1-3) Albuterol Sulfate (Albuterol Sulfate 90 Mcg 8 Gm Inhaler) 2 puff INHALE RQ6H PRN PRN Reason: wheezing Amlodipine Besylate (Amlodipine Besylate 10 Mg Tablet) 10 mg PO DAILY [facility]; Protocol Last Admin: 11/19/22 07:59 Dose: 10 mg Apixaban (Apixaban 5 Mg Tablet) 5 mg PO BID [facility] Last Admin: 11/19/22 07:59 Dose: 5 mg Atorvastatin Calcium (Atorvastatin Calcium 80 Mg Tablet) 80 mg PO DAILY [facility] Last Admin: 11/19/22 07:59 Dose: 80 mg Docusate Sodium (Docusate Sodium 100 Mg Capsule) 100 mg PO DAILY PRN PRN Reason: Constipation Ferrous Sulfate (Ferrous Sulfate 324 Mg Tablet.Dr) 324 mg PO DAILY [facility] Last Admin: 11/19/22 07:59 Dose: 324 mg Furosemide (Furosemide 40 Mg Tablet) 40 mg PO DAILY [facility]; Protocol Last Admin: 11/19/22 08:00 Dose: 40 mg Glucose (Glucose Gel 15 Gm Gel..Gram.) 15 gm PO Q15M PRN; Protocol PRN Reason: per Hypoglycemia Standing Ord. Dextrose (D10) 250 mls @ 750 mls/hr IV Q15M PRN; Protocol PRN Reason: per Hypoglycemia Standing Ord. Piperacillin Sod/Tazobactam (Sod 3.375 gm/ Sodium Chloride) 50 mls @ 100 mls/hr IV Q6H [facility] Last Infusion: 11/19/22 05:21 Dose: Infused Vancomycin HCl 1,250 mg/ (Sodium Chloride) 250 mls @ 166.667 mls/hr IV Q12H [facility] Last Admin: 11/19/22 08:00 Dose: 166.67 mls/hr Insulin Glargine (Insulin Glargine,Hum.Rec.Anlog 100 Unit/Ml 10 Ml Vial) 10 unit SUBCUT BEDTIME [facility] Last Admin: 11/18/22 20:51 Dose: 10 unit Insulin Human Lispro (Insulin Lispro 100 Unit/Ml 3 Ml Vial) 0 unit SUBCUT QIDACHS [facility]; Protocol Last Admin: 11/19/22 07:58 Dose: 6 unit Lisinopril (Lisinopril 10 Mg Tablet) 30 mg PO DAILY [facility]; Protocol Last Admin: 11/19/22 07:59 Dose: 30 mg Lorazepam (Lorazepam 1 Mg Tablet) 1 mg PO BID PRN PRN Reason: agitation Methadone HCl (Methadone Hcl 20 Mg/2 Ml Oral.Conc) 10 mg PO DAILY [facility] Last Admin: 11/19/22 07:59 Dose: 10 mg Omeprazole (Omeprazole 20 Mg Capsule.Dr) 20 mg PO DAILY@0630 [facility] Last Admin: 11/19/22 04:51 Dose: 20 mg Ondansetron HCl (Ondansetron Hcl 4 Mg/2 Ml Vial) 4 mg IVPUSH Q8H PRN PRN Reason: Nausea and Vomiting Pharmacy Consult (Consult Rx Vancomycin Dosing) 1 each MISCELLANE DAILY PRN PRN Reason: Consult order Sodium Chloride (0.9 % Sodium Chloride Flush 3 Ml Syringe) 3 ml IVFLUSH QSHIFT [facility] Last Admin: 11/19/22 08:01 Dose: Not Given Vitamin D (Cholecalciferol (Vitamin D3) 25 Mcg Tablet) 25 mcg PO DAILY [facility] Last Admin: 11/19/22 07:59 Dose: 25 mcg Zolpidem Tartrate (Zolpidem Tartrate 5 Mg Tablet) 5 mg PO BEDTIME [facility] Last Admin: 11/18/22 20:51 Dose: 5 mg Home Medications Medication Instructions Recorded Confirmed Last Taken Type albuterol sulfate 90 mcg/actuation 2 puff inhalation Q6H PRN wheezing 11/18/22 11/18/22 Unknown History aerosol inhaler (Ventolin HFA) apixaban 5 mg tablet (Eliquis) 5 mg PO BID 11/18/22 11/18/22 Unknown History cholecalciferol (vitamin D3) 25 25 mcg PO DAILY 11/18/22 11/18/22 Unknown History mcg (1,000 unit) capsule diclofenac sodium 1 % topical gel 1 ea topical DAILY 11/18/22 11/18/22 Unknown History dulaglutide 0.75 mg/0.5 mL 0.75 mg subcut QWEEK 11/18/22 11/18/22 Unknown History subcutaneous pen injector (Trulicity) insulin glargine 100 unit/mL (3 20 unit subcut BEDTIME 11/18/22 11/18/22 Unknown History mL) subcutaneous pen (Lantus Solostar U-100 Insulin) insulin lispro 100 unit/mL 28 unit subcut BID 11/18/22 11/18/22 Unknown History subcutaneous pen methadone 10 mg/mL oral concentrate 10 mg PO DAILY 11/18/22 11/18/22 11/17/22 06:23 History pantoprazole 40 mg tablet,delayed 40 mg PO DAILY 11/18/22 11/18/22 Unknown History release Physical Exam Vital Signs: Vital Signs: Last Vital Signs Temp 97 F 11/19/22 07:11 Pulse 63 11/19/22 07:11 Resp 18 11/19/22 07:11 BP 149/76 H 11/19/22 07:11 Pulse Ox 98 11/19/22 07:11 O2 Del Method Room Air 11/19/22 07:11 BMI result Body Mass Index 31.7 On exam, the patient is nontoxic and in good spirits His sclera are anicteric, conjunctiva pink and moist He is in no acute respiratory distress Abdomen is overweight and soft with no tenderness The patient's left BKA stump as an anterior fistula with a rolled edge/margin. There is no necrosis, malodorous drainage, crepitance, erythema or evidence of infection. Results Labs 11/18/22 05:44 11/19/22 05:37 Labs: Abnormal lab results 11/18/22 11/18/22 11/18/22 Range/Units 11:12 16:52 20:27 Anion Gap (12-20) POC Glucose 198 H 244 H 191 H (60-115) mg/dL Random Glucose (60-115) mg/dL Calcium (8.4-10.2) mg/dL 11/19/22 11/19/22 Range/Units 05:37 07:10 Anion Gap 11 L (12-20) POC Glucose 285 H (60-115) mg/dL Random Glucose 183 H (60-115) mg/dL Calcium 8.3 L (8.4-10.2) mg/dL BMP 11/19/22 05:37 Sodium 138 Potassium 4.2 Chloride 106 Carbon Dioxide 25 BUN 15 Creatinine 0.79 Calcium 8.3 L All other labs normal. Assessment and Plan (1) Open wound of skin: Status: Acute Plan Okay to continue dry sterile dressings and change daily. Dr. Plasencia will evaluate on Monday when he returns. Please call me if there are any questions regarding wound care Time Spent With Patient Time: Total time managing care of this patient today ____ minutes. Procedures Date of Service Date of Service: 11/19/22
[2022-11-19 10:59] LABS: Glucose, Whole Blood 223 mg/dL (60-115)
--- NOTE | 2022-11-19 11:50 | P.PNIM_ITS ---
Subjective Subjective Date of Service: 11/19/22 Interval History: seen and examined this morning follow up for left stump wound no overnight events no fever, chills Physical Exam Vital Signs: Vital Signs: Last Vital Signs Temp 97 F 11/19/22 07:11 Pulse 63 11/19/22 07:11 Resp 18 11/19/22 07:11 BP 149/76 H 11/19/22 07:11 Pulse Ox 98 11/19/22 07:11 O2 Del Method Room Air 11/19/22 07:11 BMI result Body Mass Index 31.7 Objective Data Active Medications Acetaminophen (Acetaminophen 325 Mg Tablet) 650 mg PO Q6H PRN PRN Reason: Pain, Mild (Pain Scale 1-3) Albuterol Sulfate (Albuterol Sulfate 90 Mcg 8 Gm Inhaler) 2 puff INHALE RQ6H PRN PRN Reason: wheezing Amlodipine Besylate (Amlodipine Besylate 10 Mg Tablet) 10 mg PO DAILY [facility]; Protocol Last Admin: 11/19/22 07:59 Dose: 10 mg Documented By: LRARY Apixaban (Apixaban 5 Mg Tablet) 5 mg PO BID [facility] Last Admin: 11/19/22 07:59 Dose: 5 mg Documented By: LARRY Atorvastatin Calcium (Atorvastatin Calcium 80 Mg Tablet) 80 mg PO DAILY [facility] Last Admin: 11/19/22 07:59 Dose: 80 mg Documented By: LARRY Docusate Sodium (Docusate Sodium 100 Mg Capsule) 100 mg PO DAILY PRN PRN Reason: Constipation Ferrous Sulfate (Ferrous Sulfate 324 Mg Tablet.) 324 mg PO DAILY [facility] Last Admin: 11/19/22 07:59 Dose: 324 mg Documented By: LARRY Furosemide (Furosemide 40 Mg Tablet) 40 mg PO DAILY [facility]; Protocol Last Admin: 11/19/22 08:00 Dose: 40 mg Documented By: LARRY Glucose (Glucose Gel 15 Gm Gel..Gram.) 15 gm PO Q15M PRN; Protocol PRN Reason: per Hypoglycemia Standing Ord. Dextrose (D10) 250 mls @ 750 mls/hr IV Q15M PRN; Protocol PRN Reason: per Hypoglycemia Standing Ord. Piperacillin Sod/Tazobactam (Sod 3.375 gm/ Sodium Chloride) 50 mls @ 100 mls/hr IV Q6H [facility] Last Infusion: 11/19/22 10:52 Dose: 0 mls/hr Documented By: LARRY Vancomycin HCl 1,250 mg/ (Sodium Chloride) 250 mls @ 166.667 mls/hr IV Q12H [facility] Last Infusion: 11/19/22 10:01 Dose: 0 mls/hr Documented By: LARRY Insulin Glargine (Insulin Glargine,Hum.Rec.Anlog 100 Unit/Ml 10 Ml Vial) 10 unit SUBCUT BEDTIME [facility] Last Admin: 11/18/22 20:51 Dose: 10 unit Documented By: TISHA Insulin Human Lispro (Insulin Lispro 100 Unit/Ml 3 Ml Vial) 0 unit SUBCUT QIDACHS [facility]; Protocol Last Admin: 11/19/22 11:11 Dose: 4 unit Documented By: LARRY Lisinopril (Lisinopril 10 Mg Tablet) 30 mg PO DAILY [facility]; Protocol Last Admin: 11/19/22 07:59 Dose: 30 mg Documented By: LARRY Lorazepam (Lorazepam 1 Mg Tablet) 1 mg PO BID PRN PRN Reason: agitation Methadone HCl (Methadone Hcl 20 Mg/2 Ml Oral.Conc) 10 mg PO DAILY [facility] Last Admin: 11/19/22 07:59 Dose: 10 mg Documented By: LARRY Omeprazole (Omeprazole 20 Mg Capsule.Dr) 20 mg PO DAILY@0630 [facility] Last Admin: 11/19/22 04:51 Dose: 20 mg Documented By: TISHA Ondansetron HCl (Ondansetron Hcl 4 Mg/2 Ml Vial) 4 mg IVPUSH Q8H PRN PRN Reason: Nausea and Vomiting Pharmacy Consult (Consult Rx Vancomycin Dosing) 1 each MISCELLANE DAILY PRN PRN Reason: Consult order Sodium Chloride (0.9 % Sodium Chloride Flush 3 Ml Syringe) 3 ml IVFLUSH QSHIFT [facility] Last Admin: 11/19/22 08:01 Dose: Not Given Documented By: LARRY Non-Admin Reason: IV Running Vitamin D (Cholecalciferol (Vitamin D3) 25 Mcg Tablet) 25 mcg PO DAILY [facility] Last Admin: 11/19/22 07:59 Dose: 25 mcg Documented By: LARRY Zolpidem Tartrate (Zolpidem Tartrate 5 Mg Tablet) 5 mg PO BEDTIME [facility] Last Admin: 11/18/22 20:51 Dose: 5 mg Documented By: TISHA Labs 11/18/22 05:44 11/19/22 05:37 Labs: Laboratory Results - last 24 hr 11/18/22 11/18/22 11/19/22 16:52 20:27 05:37 Anion Gap 11 L Estim Creat Clear Calc 136.1 Estimated GFR > 60 POC Glucose 244 H 191 H Random Glucose 183 H Calcium 8.3 L 11/19/22 11/19/22 07:10 10:54 Anion Gap Estim Creat Clear Calc Estimated GFR POC Glucose 285 H 223 H Random Glucose Calcium Microbiology Microbiology Results: Microbiology 11/17/22 20:57 Blood Culture - Final Blood - Venous Coag negative Staphylococcus 11/17/22 20:44 Blood Culture - Preliminary Blood - Venous No growth after 24 hours. Assessment and Plan Time Spent With Patient Time: Total time managing care of this patient today ____ minutes. Quality Stroke Does the patient have a stroke diagnosis?: No VTE Prior VTE?: No VTE Risk Level:: Medical - moderate - high VTE Device Contraindication: Treatment Not Indicated VTE Drug Contraindication: N/A - Med Ordered
--- NOTE | 2022-11-19 12:59 | PM.DS ---
DS: Providers Provider Date of Service: 11/19/22 Date of admission: 11/17/22 23:26 Date of discharge: 11/19/22 Primary care physician: Yoli Wilkins MD Consults: 11/17/22 23:25 Consult to Infectious Diseases Routine Consulting Provider: [facility] Infectious Disease Reason for consultation: non-healing wound Has provider been notified: No 11/18/22 16:36 Consult to General Surgery Routine Consulting Provider: [facility] General Surgeons Reason for consultation: nonhealing wound, MRI with ?abscess Has provider been notified: No Attending physician on discharge: Quyen Corea Discharging clinician: Lexus Shepard DS: Diagnosis Discharge Diagnosis (1) Open wound of skin: Status: Acute DS: Summary Hospital Course Hospital Course: From H&P on day of admission 62-year-old male past medical history of diabetes, hypertension, AFib, status post bilateral BKA, dyslipidemia, asthma, presents the hospital with complaints of nonhealing left stump wound.? Patient reports that the wound at this time started about 4 months ago, he has been going to wound care clinic every week, he reports that he went today and they sent into the hospital.? He states that he was on antibiotics for the wound about a month ago for complete 30 days with no resolution of the wound, the wound is draining, nontender, he denies any fever, no chills, denies any chest pain, no shortness of breath, no abdominal pain nausea or vomiting, no diarrhea constipation.? Of note patient is homeless and lives in the [facility] according to him On arrival to the ED patient hemodynamically stable with no significant abnormal vitals Labs are significant for WBC count of 10.7, ESR of 77, CRP of 0.7, and lactic acid of 2.3 X-ray of the tibia/fibula shows findings in the appearance of bone in the anterior inferior aspect of the tibial region, infection cannot be excluded, Patient started on IV antibiotics will be admitted for further management nonhealing stump wound/diabetic ulcer does not meet SIRS criteria, no evidence of sepsis. noo white count, no fever. elevated lactic acid may be due to metformin use. MRI with possible small area of fluid of phlegmonous change or abscess - seen by general surgery, there is no drainable fluid collection. abnormal signal in the anterior/midportion of the tibia suspicious for osteomyelitis - likely chronic - similar on MRI from June s/p IV and PO abx and ESR lower then previous. no pain at site of wound. initially treated with broad spectrum antibiotics. Blood cultures returned 1/2 positive for Gram-positive cocci, final result coagulase negative Staph, likely contaminant. Seen in consultation by Infectious Diseases who recommended discharge with 30 days of oral doxycycline. Recommended to follow up in Wound Care Clinic as scheduled and also follow-up with General surgery as he missed his last follow-up appointment. Time Spent with Patient Time attestation: Total time managing care of this patient today ____ minutes. Discharge coordination time: Greater than 30 minutes Quality: Safe Use of Opioids Does Pt have an Active Cancer Diagnosis on the Problem List?: No Quality: Stroke Does the patient have a stroke diagnosis?: No Physical Exam Vital Signs: Vital Signs: Last Vital Signs Temp 97 F 11/19/22 07:11 Pulse 63 11/19/22 07:11 Resp 18 11/19/22 07:11 BP 149/76 H 11/19/22 07:11 Pulse Ox 98 11/19/22 07:11 O2 Del Method Room Air 11/19/22 07:11 BMI result Body Mass Index 31.7 Const: General: cooperative, comfortable, no acute distress, alert and awake Nutritional Appearance: overweight Orientation/consciousness: patient oriented x3 Resp: Effort & Inspection: normal respiratory effort and able to speak in complete sentences Auscultation: clear to auscultation bilaterally Cardio: Rate: regular rate Heart sounds: S1 normal heart sound present and S2 normal heart sound present GI: Inspection: No distended Palpation (GI): Soft to palpation and nontender Neuro: General: patient oriented x3 and CN's II-XI intact bilaterally Extrem: General: Yes no pedal edema DS: Data Data Completed and Pending Labs on day of discharge: Laboratory Results - last 24 hr 11/18/22 11/18/22 11/19/22 16:52 20:27 05:37 Sodium 138 Potassium 4.2 Chloride 106 Carbon Dioxide 25 Anion Gap 11 L BUN 15 Creatinine 0.79 Estim Creat Clear Calc 136.1 Estimated GFR > 60 POC Glucose 244 H 191 H Random Glucose 183 H Calcium 8.3 L 11/19/22 11/19/22 07:10 10:54 Sodium Potassium Chloride Carbon Dioxide Anion Gap BUN Creatinine Estim Creat Clear Calc Estimated GFR POC Glucose 285 H 223 H Random Glucose Calcium Preliminary micro results at discharge 11/17/22 20:44 Blood Culture - Preliminary Blood - Venous No growth after 24 hours. Discharge Plan Discharge Anticipated Discharge Date/Time: 11/19/22 13:03 Patient Disposition: Home, Self-Care Discharge Diagnosis: non healing wound of stump Referrals: Alexandro Plasencia MD [Physician] - 1 Week Yoli Ocampo MD [Primary Care Provider] - 1 Week Discharge Medications: New doxycycline hyclate 100 mg tablet 100 mg PO BID 30 Days Qty: 60 0RF Continued amlodipine 10 mg tablet 10 mg PO DAILY Qty: 30 6RF ferrous sulfate 325 mg (65 mg iron) tablet 325 mg PO DAILY 90 Days Qty: 90 0RF lorazepam 1 mg tablet 1 mg PO BID PRN (Reason: agitation) 30 Days Qty: 60 0RF zolpidem 10 mg tablet 10 mg PO DAILY 30 Days Qty: 30 0RF pantoprazole 40 mg tablet,delayed release (DR/EC) 40 mg PO DAILY albuterol sulfate [Ventolin HFA] 90 mcg/actuation HFA aerosol inhaler 2 puff inhalation Q6H PRN (Reason: wheezing) cholecalciferol (vitamin D3) 25 mcg (1,000 unit) capsule 25 mcg PO DAILY insulin lispro 100 unit/mL insulin pen 28 unit subcut BID insulin glargine [Lantus Solostar U-100 Insulin] 100 unit/mL (3 mL) insulin pen 20 unit subcut BEDTIME diclofenac sodium 1 % gel 1 ea topical DAILY Eliquis 5 mg tablet 5 mg PO BID Trulicity 0.75 mg/0.5 mL pen injector 0.75 mg subcut QWEEK methadone 10 mg/mL Concentrate 10 mg PO DAILY atorvastatin 80 mg tablet 80 mg PO DAILY 90 Days Qty: 90 2RF furosemide 40 mg tablet 40 mg PO DAILY 90 Days Qty: 90 1RF lisinopril 30 mg tablet 30 mg PO DAILY Qty: 90 3RF metformin 1,000 mg tablet 1,000 mg PO BID 90 Days Qty: 180 2RF No Action (DME) scooter See Rx Instructions .Route .MEDSUPPLY Qty: 1 0RF Rx Instructions: As directed (DME) blood-glucose meter [FreeStyle Lite Meter] Kit See Rx Instructions .Route Qty: 1 0RF Rx Instructions: As directed (DME) wound vac See Rx Instructions .Route .MEDSUPPLY Qty: 1 0RF Rx Instructions: As directed (DME) electric wheelchair See Rx Instructions .Route .MEDSUPPLY Qty: 1 0RF Rx Instructions: As directed (DME) FreeStyle Test Strip See Rx Instructions .ROUTE .MEDSUPPLY Qty: 100 11RF Rx Instructions: Use 1 test strip three times a day (DME) insulin syringe-needle U-100 0.3 mL 31 gauge x 5/16 syringe See Rx Instructions .ROUTE .MEDSUPPLY Qty: 100 3RF Rx Instructions: TID (DME) pen needle, diabetic [BD Ultra-Fine Mini Pen Needle] 31 gauge x 3/16 needle See Rx Instructions miscellaneous .MEDSUPPLY Qty: 100 3RF Rx Instructions: As directed Discharge Orders: Discharge Order (Routine); Ordered 11/19/22 Ordered By: Lexus Shepard Activity on Discharge: As tolerated Stand Alone Forms: Patient Portal Discharge page Care Plan Goals: see below Health Concerns: stump wound Plan of Treatment: recommend to complete 30 days of po doxycycline continue outpatient follow up in would clinic recommend outpatient follow up with general surgery Assessment: see discharge summary
--- NOTE | 2022-11-19 14:08 | P.PNIM_ITS ---
Subjective Subjective Date of Service: 11/19/22 Interval History: seen and examined this morning follow up for left stump wound does not appear infected no fever, chills Review of Systems Review of Systems: Yes all other systems are reviewed and are negative Constitutional Constitutional: Denies chills and Denies fever(s) ENT Ears, Nose, Mouth, and Throat: Denies dizziness Cardiovascular Cardiovascular: Denies chest pain, Denies palpitations and Denies dyspnea Respiratory Respiratory: Denies cough and Denies dyspnea Gastrointestinal Gastrointestinal: Denies abdominal pain, Denies nausea and Denies vomiting Neurologic Neurologic: Denies dizziness Endocrine Endocrine: Denies palpitations Physical Exam Vital Signs: Vital Signs: Last Vital Signs Temp 97 F 11/19/22 07:11 Pulse 63 11/19/22 07:11 Resp 18 11/19/22 07:11 BP 149/76 H 11/19/22 07:11 Pulse Ox 98 11/19/22 07:11 O2 Del Method Room Air 11/19/22 07:11 BMI result Body Mass Index 31.7 Const: General: cooperative, comfortable, no acute distress, alert and awake Nutritional Appearance: overweight Orientation/consciousness: patient oriented x3 Resp: Effort & Inspection: normal respiratory effort and able to speak in complete sentences Auscultation: clear to auscultation bilaterally Cardio: Rate: regular rate Heart sounds: S1 normal heart sound present and S2 normal heart sound present GI: Inspection: No distended Palpation (GI): Soft to palpation and nontender Skin: Other: Neuro: General: patient oriented x3 and CN's II-XI intact bilaterally Extrem: Other: bl BKA Objective Data Active Medications Acetaminophen (Acetaminophen 325 Mg Tablet) 650 mg PO Q6H PRN PRN Reason: Pain, Mild (Pain Scale 1-3) Albuterol Sulfate (Albuterol Sulfate 90 Mcg 8 Gm Inhaler) 2 puff INHALE RQ6H PRN PRN Reason: wheezing Amlodipine Besylate (Amlodipine Besylate 10 Mg Tablet) 10 mg PO DAILY [facility]; Protocol Last Admin: 11/19/22 07:59 Dose: 10 mg Documented By: LARRY Apixaban (Apixaban 5 Mg Tablet) 5 mg PO BID [facility] Last Admin: 11/19/22 07:59 Dose: 5 mg Documented By: LARRY Atorvastatin Calcium (Atorvastatin Calcium 80 Mg Tablet) 80 mg PO DAILY [facility] Last Admin: 11/19/22 07:59 Dose: 80 mg Documented By: LARRY Docusate Sodium (Docusate Sodium 100 Mg Capsule) 100 mg PO DAILY PRN PRN Reason: Constipation Ferrous Sulfate (Ferrous Sulfate 324 Mg Tablet.Dr) 324 mg PO DAILY [facility] Last Admin: 11/19/22 07:59 Dose: 324 mg Documented By: LARRY Furosemide (Furosemide 40 Mg Tablet) 40 mg PO DAILY [facility]; Protocol Last Admin: 11/19/22 08:00 Dose: 40 mg Documented By: LARRY Glucose (Glucose Gel 15 Gm Gel..Gram.) 15 gm PO Q15M PRN; Protocol PRN Reason: per Hypoglycemia Standing Ord. Dextrose (D10) 250 mls @ 750 mls/hr IV Q15M PRN; Protocol PRN Reason: per Hypoglycemia Standing Ord. Piperacillin Sod/Tazobactam (Sod 3.375 gm/ Sodium Chloride) 50 mls @ 100 mls/hr IV Q6H [facility] Last Infusion: 11/19/22 10:52 Dose: 0 mls/hr Documented By: LARRY Vancomycin HCl 1,250 mg/ (Sodium Chloride) 250 mls @ 166.667 mls/hr IV Q12H [facility] Last Infusion: 11/19/22 10:01 Dose: 0 mls/hr Documented By: LARRY Insulin Glargine (Insulin Glargine,Hum.Rec.Anlog 100 Unit/Ml 10 Ml Vial) 10 unit SUBCUT BEDTIME [facility] Last Admin: 11/18/22 20:51 Dose: 10 unit Documented By: TISHA Insulin Human Lispro (Insulin Lispro 100 Unit/Ml 3 Ml Vial) 0 unit SUBCUT QIDACHS [facility]; Protocol Last Admin: 11/19/22 11:11 Dose: 4 unit Documented By: LARRY Lisinopril (Lisinopril 10 Mg Tablet) 30 mg PO DAILY [facility]; Protocol Last Admin: 11/19/22 07:59 Dose: 30 mg Documented By: LARRY Lorazepam (Lorazepam 1 Mg Tablet) 1 mg PO BID PRN PRN Reason: agitation Methadone HCl (Methadone Hcl 20 Mg/2 Ml Oral.Conc) 10 mg PO DAILY [facility] Last Admin: 11/19/22 07:59 Dose: 10 mg Documented By: LARRY Omeprazole (Omeprazole 20 Mg Capsule.) 20 mg PO DAILY@0630 [facility] Last Admin: 11/19/22 04:51 Dose: 20 mg Documented By: TISHA Ondansetron HCl (Ondansetron Hcl 4 Mg/2 Ml Vial) 4 mg IVPUSH Q8H PRN PRN Reason: Nausea and Vomiting Pharmacy Consult (Consult Rx Vancomycin Dosing) 1 each MISCELLANE DAILY PRN PRN Reason: Consult order Sodium Chloride (0.9 % Sodium Chloride Flush 3 Ml Syringe) 3 ml IVFLUSH QSHIFT [facility] Last Admin: 11/19/22 08:01 Dose: Not Given Documented By: LARRY Non-Admin Reason: IV Running Vitamin D (Cholecalciferol (Vitamin D3) 25 Mcg Tablet) 25 mcg PO DAILY [facility] Last Admin: 11/19/22 07:59 Dose: 25 mcg Documented By: LARRY Zolpidem Tartrate (Zolpidem Tartrate 5 Mg Tablet) 5 mg PO BEDTIME [facility] Last Admin: 11/18/22 20:51 Dose: 5 mg Documented By: TISHA Labs 11/18/22 05:44 11/19/22 05:37 Labs: Laboratory Results - last 24 hr 11/18/22 11/18/22 11/19/22 16:52 20:27 05:37 Anion Gap 11 L Estim Creat Clear Calc 136.1 Estimated GFR > 60 POC Glucose 244 H 191 H Random Glucose 183 H Calcium 8.3 L 11/19/22 11/19/22 07:10 10:54 Anion Gap Estim Creat Clear Calc Estimated GFR POC Glucose 285 H 223 H Random Glucose Calcium Microbiology Microbiology Results: Microbiology 11/17/22 20:57 Blood Culture - Final Blood - Venous Coag negative Staphylococcus 11/17/22 20:44 Blood Culture - Preliminary Blood - Venous No growth after 24 hours. Assessment and Plan (1) Diabetic leg ulcer: Status: Acute Plan 62-year-old male with past medical history of diabetes presents the hospital with complaints of nonhealing left stump wound being evaluated outpatient, and sent to the hospital by wound clinic stump wound/diabetic ulcer does not meet SIRS criteria, no evidence of sepsis. no white count, no fever. elevated lactic acid may be due to metformin use MRI with possible small area of fluid of phlegmonous change or abscess - seen by general surgery, there is no drainable fluid collection abnormal signal in the anterior/midportion of the tibia suspicious for osteomyelitis - likely chronic - similar on MRI from June s/p IV and PO abx and ESR lower then previous. no pain at site of wound Blood cultures returned 1/2 positive for Gram-positive cocci, final result coagulase negative Staph, likely contaminant.? Seen in consultation by Infectious Diseases who recommended discharge with 30 days of oral doxycycline.? Recommended to follow up in Wound Care Clinic as scheduled and also follow-up with General surgery as he missed his last follow-up appointment. lactic acidosis possibly related to metformin as no evidence of sirs T2DM Trulicity NF continue lower dose of baseline Lantus Continue SSI, ADA diet hypertension continue norvasc, lisinopril chronic atrial fibrillation HR controlled continue Elirubiis doesn't appear to be on rate control CHF, unspecified no echo available continue lasix HLD continue statin OUD continue methadone DVT prophylaxis: Eduardo attending - dr. stein dispo: pt recently homeless - PT eval for possible SNF placement vs nursing home requires ongoing inpatient stay for safe disposition Time Spent With Patient Time: Total time managing care of this patient today ____ minutes. Quality Stroke Does the patient have a stroke diagnosis?: No VTE Prior VTE?: No VTE Risk Level:: Medical - moderate - high VTE Device Contraindication: Treatment Not Indicated VTE Drug Contraindication: N/A - Med Ordered
[2022-11-19 14:44] VITALS: BP 149/76; PULSE 63; O2SAT 98
[2022-11-19 15:10] VITALS: BP 116/56; PULSE 60; RESP 16; TEMP 36.1; O2SAT 99
--- NOTE | 2022-11-19 15:20 | MHC.CM.PN ---
Addendum entered by Nikki Campos 11/21/22 15:41: 16 REFERRALS HAVE BEEN MADE THUS FAR [facility] IS REVIEWING 14 HAVE DECLINED [facility] [place] WILL WILLING TO CONSIDER AN OON CONTRACT WITH PTS INSURANCE IF HE GETS ENOUGH DENIALS CM ALSO LEFT A MESSAGE FOR THE NURSE AT [facility] TO DETERMINE IF PT WOULD BE ABLE TO GO TO THEIR CARE HOME Addendum entered by Nikki Campos 11/21/22 11:24: CM RECEIVED A CALL FROM HEATHER AT [facility] [employer] [facility] HE REPORTS HE IS FOLLOWING THIS PT AND REQUESTS AN UPDATE HE REPORTS THE PT WAS LIVING IN [facility], HOWEVER THE FAMILY WAS EVICTED FROM THEIR APARTMENT MAKING THE PT HOMELESS HETAHER REPORTS THE PT DID TELL HIM ABOUT A SON IN [facility] THAT MAY BE ABLE TO TAKE HIM AT SOME POINT, BUT NOT IN THE NEAR FUTURE HEATHER ALSO REPORTS HE QUESTIONS THE ACCURACY OF SOME OF WHAT PT REPORTS HEATHER REPORTS THE ADULT FC WAS THROUGH [facility] AND HE DID ASK THEM ABOUT PLACING PT WITH A NEW FAMILY, HOWEVER THEY HAVE DECLINED SAYING THEY HAVE NO PLACE TO OFFER THE PT. Addendum entered by Nikki Campos 11/21/22 09:15: PT REMAINED OVER THE WEEKEND FOR FOLLOW UP WITH DR [facility]LLANOS [facility] PT REPORTS HE IS WILLING TO GO TO A SNF OR A CARE HOME HE DOES NOT WISH TO GO TO A MOTEL BECAUSE HE IS AFRAID TO BE ALONE IN CASE HE FALLS HE IS AWARE SNF REFERRALS HAVE BEEN MADE AND WILL NOW BE EXPANDED [facility] HOWEVER THEY INDICATED THEY HAD NO OPENINGS PT REPORTS HE DOES GET SSDI AND WOULD BE WILLING TO PAY RENT IF HE COULD FIND A ROOM Original Note: PT REPORTS HE IS CURRENTLY HOMELESS AND SLEEPING IN A CEMETERY HE REPORTS HE WAS STAYING WITH A FRIEND HOWEVER HE WAS KICKED OUT BECAUSE HE WAS NOT ON THE LEASE PT USES AN ELECTRIC WHEELCHAIR AND PROSTHETIC AT [place] HE HAS NO HCP PCP: NELLA MATAMOROS PT IS INTERESTED IN CARE HOME PLACEMENT MESSAGE LEFT FOR [facility] PT HAS BEEN CALLING [facility] DAILY MONDAY THROUGH MONDAY HOWEVER THEY DO NOT HAVE ANY OPENINGS SNF REFERRALS WERE ALSO MADE PT REPORTS HIS DAUGHTER WILL BE COMING TO GET HIM AND MOVE HIM TO [place] WITH HER IN TWO MONTHS TRANSPORT TBD BY DISPO PLAN
[2022-11-19] MEDS: 0.9 % Sodium Chloride Flush 3 ML SYRINGE IVFLUSH ×2 (15:28→23:47)
[2022-11-19 16:32] LABS: Glucose, Whole Blood 301 mg/dL (60-115)
[2022-11-19 18:41] LABS: Vancomycin Random 13.2 mcg/mL (15-20)
[2022-11-19 19:12] VITALS: BP 133/84; PULSE 76; RESP 16; TEMP 36.3; O2SAT 98
[2022-11-19 20:26] LABS: Glucose, Whole Blood 212 mg/dL (60-115)
[2022-11-19] MEDS: Insulin Glargine,Hum.rec.anlog 100 UNIT/ML 10 ML VIAL 10 UNIT SUBCUT (20:54)
[2022-11-19] MEDS: Zolpidem Tartrate 5 MG TABLET PO (20:56)
[2022-11-19] MEDS: Doxycycline Monohydrate 100 MG CAPSULE PO (20:56)
[2022-11-20 02:53] VITALS: BP 125/60; PULSE 57; RESP 16; TEMP 36.6; O2SAT 98
[2022-11-20] MEDS: Omeprazole 20 MG CAPSULE.DR PO (06:12)
[2022-11-20] MEDS: Docusate Sodium 100 MG CAPSULE PO (06:17)
[2022-11-20 07:46] VITALS: BP 163/77; PULSE 66; RESP 18; TEMP 36.7; O2SAT 98
[2022-11-20 07:53] LABS: Glucose, Whole Blood 207 mg/dL (60-115)
[2022-11-20] MEDS: methADONE HCl 20 MG/2 ML ORAL.CONC 10 MG PO (08:14)
[2022-11-20] MEDS: amLODIPine Besylate 10 MG TABLET PO (08:15)
[2022-11-20] MEDS: Apixaban 5 MG TABLET PO ×2 (08:15→20:29)
[2022-11-20] MEDS: Atorvastatin Calcium 80 MG TABLET PO (08:15)
[2022-11-20] MEDS: Furosemide 40 MG TABLET PO (08:15)
[2022-11-20] MEDS: Cholecalciferol (Vitamin D3) 25 MCG TABLET PO (08:15)
[2022-11-20] MEDS: 0.9 % Sodium Chloride Flush 3 ML SYRINGE IVFLUSH ×3 (08:15→23:43)
[2022-11-20] MEDS: Doxycycline Monohydrate 100 MG CAPSULE PO ×2 (08:15→20:29)
[2022-11-20] MEDS: Ferrous Sulfate 324 MG TABLET.DR PO (08:15)
[2022-11-20] MEDS: Insulin Lispro 100 UNIT/ML 3 ML VIAL SUBCUT ×4 (08:22→20:40)
[2022-11-20] MEDS: lisinopriL 10 MG TABLET 30 MG PO (08:25)
--- NOTE | 2022-11-20 09:26 | PM.PNGS ---
Subjective Subjective Date of Service: 11/20/22 Patient reports: no new complaints and feels better Interval history: The patient is seen in coverage for Dr. Plasencia. The patient is out of bed in his scooter and dressings are present. He reports he is feeling better. He otherwise denies interval change. Physical Exam Vital Signs: Vital Signs: Last Vital Signs Temp 98.1 F 11/20/22 07:46 Pulse 66 11/20/22 07:46 Resp 18 11/20/22 07:46 BP 163/77 H 11/20/22 07:46 Pulse Ox 98 11/20/22 07:46 O2 Del Method Room Air 11/20/22 07:46 BMI result Body Mass Index 31.7 On exam, the patient is nontoxic and in good spirits His sclera are anicteric, conjunctiva pink and moist He is in no acute respiratory distress Abdomen is overweight and soft with no tenderness The patient's left BKA stump as an anterior fistula with a rolled edge/margin. There is no necrosis, malodorous drainage, crepitance, erythema or evidence of infection. No significant purulence drainage is noted. Objective Data Active Medications Acetaminophen (Acetaminophen 325 Mg Tablet) 650 mg PO Q6H PRN PRN Reason: Pain, Mild (Pain Scale 1-3) Albuterol Sulfate (Albuterol Sulfate 90 Mcg 8 Gm Inhaler) 2 puff INHALE RQ6H PRN PRN Reason: wheezing Amlodipine Besylate (Amlodipine Besylate 10 Mg Tablet) 10 mg PO DAILY [facility]; Protocol Last Admin: 11/20/22 08:15 Dose: 10 mg Documented By: FILOMENA Apixaban (Apixaban 5 Mg Tablet) 5 mg PO BID [facility] Last Admin: 11/20/22 08:15 Dose: 5 mg Documented By: FILOMENA Atorvastatin Calcium (Atorvastatin Calcium 80 Mg Tablet) 80 mg PO DAILY [facility] Last Admin: 11/20/22 08:15 Dose: 80 mg Documented By: FILOMENA Docusate Sodium (Docusate Sodium 100 Mg Capsule) 100 mg PO DAILY PRN PRN Reason: Constipation Last Admin: 11/20/22 06:17 Dose: 100 mg Documented By: LAVERNE Doxycycline Monohydrate (Doxycycline Monohydrate 100 Mg Capsule) 100 mg PO BID [facility] Last Admin: 11/20/22 08:15 Dose: 100 mg Documented By: FILOMENA Ferrous Sulfate (Ferrous Sulfate 324 Mg Tablet.) 324 mg PO DAILY [facility] Last Admin: 11/20/22 08:15 Dose: 324 mg Documented By: FILOMENA Furosemide (Furosemide 40 Mg Tablet) 40 mg PO DAILY [facility]; Protocol Last Admin: 11/20/22 08:15 Dose: 40 mg Documented By: FILOMENA Glucose (Glucose Gel 15 Gm Gel..Gram.) 15 gm PO Q15M PRN; Protocol PRN Reason: per Hypoglycemia Standing Ord. Dextrose (D10) 250 mls @ 750 mls/hr IV Q15M PRN; Protocol PRN Reason: per Hypoglycemia Standing Ord. Insulin Glargine (Insulin Glargine,Hum.Rec.Anlog 100 Unit/Ml 10 Ml Vial) 15 unit SUBCUT BEDTIME [facility] Insulin Human Lispro (Insulin Lispro 100 Unit/Ml 3 Ml Vial) 0 unit SUBCUT QIDACHS [facility]; Protocol Last Admin: 11/20/22 08:22 Dose: 4 unit Documented By: FILOMENA Lisinopril (Lisinopril 10 Mg Tablet) 30 mg PO DAILY [facility]; Protocol Last Admin: 11/20/22 08:25 Dose: 30 mg Documented By: FILOMENA Lorazepam (Lorazepam 1 Mg Tablet) 1 mg PO BID PRN PRN Reason: agitation Methadone HCl (Methadone Hcl 20 Mg/2 Ml Oral.Conc) 10 mg PO DAILY [facility] Last Admin: 11/20/22 08:14 Dose: 10 mg Documented By: FILOMENA Omeprazole (Omeprazole 20 Mg Capsule.) 20 mg PO DAILY@0630 [facility] Last Admin: 11/20/22 06:12 Dose: 20 mg Documented By: LAVERNE Ondansetron HCl (Ondansetron Hcl 4 Mg/2 Ml Vial) 4 mg IVPUSH Q8H PRN PRN Reason: Nausea and Vomiting Sodium Chloride (0.9 % Sodium Chloride Flush 3 Ml Syringe) 3 ml IVFLUSH QSHIFT [facility] Last Admin: 11/20/22 08:15 Dose: 3 ml Documented By: FILOMENA Vitamin D (Cholecalciferol (Vitamin D3) 25 Mcg Tablet) 25 mcg PO DAILY [facility] Last Admin: 11/20/22 08:15 Dose: 25 mcg Documented By: FILOMENA Zolpidem Tartrate (Zolpidem Tartrate 5 Mg Tablet) 5 mg PO BEDTIME [facility] Last Admin: 11/19/22 20:56 Dose: 5 mg Documented By: SANTO Labs 11/18/22 05:44 11/19/22 05:37 Labs: Laboratory Results - last 24 hr 11/19/22 11/19/22 11/19/22 10:54 16:28 18:02 POC Glucose 223 H 301 H Random Vancomycin 13.2 L 11/19/22 11/20/22 20:14 07:49 POC Glucose 212 H 207 H Random Vancomycin Imaging MRI left BKA: Interpreted by radiologist as an abscess, cellulitis and: Radiologist's impression: However on clinical exam, there is no erythema, significant tenderness nor fluctuance. Radiologist report raises concern for osteomyelitis meaning stump revision may be required. Microbiology Microbiology Results: Microbiology 11/17/22 20:44 Blood Culture - Preliminary Blood - Venous No growth after 48 hours. 11/17/22 20:57 Blood Culture - Final Blood - Venous Coag negative Staphylococcus Procedures Date of Service Date of Service: 11/20/22 Progress Note: A&P Assessment and plan (1) Non-healing wound of amputation stump: Status: Acute (2) Osteomyelitis of left leg: Status: Acute (3) Diabetic leg ulcer: Status: Acute Plan In communication with the hospitalist, given the patient's social issues, the patient will be kept in overnight for his surgeon, Dr. Plasencia to review and discuss options. Time Spent With Patient Time: Total time managing care of this patient today ____ minutes. Quality Stroke Does the patient have a stroke diagnosis?: No VTE Prior VTE?: No VTE Risk Level:: Medical - moderate - high VTE Device Contraindication: Treatment Not Indicated VTE Drug Contraindication: N/A - Med Ordered
[2022-11-20 11:17] LABS: Glucose, Whole Blood 290 mg/dL (60-115)
[2022-11-20] MEDS: bisacodyL 5 MG TABLET.DR PO (11:37)
--- NOTE | 2022-11-20 12:44 | HO.PM.IMPN ---
Subjective Subjective Date of Service: 11/20/22 Interval History: seen and examined this morning follow up for left stump wound no overnight events no pain at site of would reporting some constipation today Review of Systems Review of Systems: Yes all other systems are reviewed and are negative Constitutional Constitutional: Denies chills and Denies fever(s) Cardiovascular Cardiovascular: Denies chest pain, Denies palpitations and Denies dyspnea Respiratory Respiratory: Denies cough and Denies dyspnea Gastrointestinal Gastrointestinal: Denies abdominal pain, Reports constipation, Denies nausea and Denies vomiting Endocrine Endocrine: Denies palpitations Physical Exam Vital Signs: Vital Signs: Last Vital Signs Temp 98.1 F 11/20/22 07:46 Pulse 66 11/20/22 07:46 Resp 18 11/20/22 07:46 BP 163/77 H 11/20/22 07:46 Pulse Ox 98 11/20/22 07:46 O2 Del Method Room Air 11/20/22 07:46 BMI result Body Mass Index 31.7 Const: General: cooperative, comfortable, no acute distress, alert and awake Nutritional Appearance: overweight Orientation/consciousness: patient oriented x3 Resp: Effort & Inspection: normal respiratory effort and able to speak in complete sentences Auscultation: clear to auscultation bilaterally Cardio: Rate: regular rate Heart sounds: S1 normal heart sound present and S2 normal heart sound present GI: Inspection: No distended Palpation (GI): Soft to palpation and nontender Skin: Other: Neuro: General: patient oriented x3 and CN's II-XI intact bilaterally Extrem: Other: bl BKA General: Yes no pedal edema Objective Data Active Medications Acetaminophen (Acetaminophen 325 Mg Tablet) 650 mg PO Q6H PRN PRN Reason: Pain, Mild (Pain Scale 1-3) Albuterol Sulfate (Albuterol Sulfate 90 Mcg 8 Gm Inhaler) 2 puff INHALE RQ6H PRN PRN Reason: wheezing Amlodipine Besylate (Amlodipine Besylate 10 Mg Tablet) 10 mg PO DAILY [facility]; Protocol Last Admin: 11/20/22 08:15 Dose: 10 mg Documented By: FILOMENA Apixaban (Apixaban 5 Mg Tablet) 5 mg PO BID [facility] Last Admin: 11/20/22 08:15 Dose: 5 mg Documented By: FILOMENA Atorvastatin Calcium (Atorvastatin Calcium 80 Mg Tablet) 80 mg PO DAILY [facility] Last Admin: 11/20/22 08:15 Dose: 80 mg Documented By: FILOMENA Docusate Sodium (Docusate Sodium 100 Mg Capsule) 100 mg PO DAILY PRN PRN Reason: Constipation Last Admin: 11/20/22 06:17 Dose: 100 mg Documented By: LAVERNE Doxycycline Monohydrate (Doxycycline Monohydrate 100 Mg Capsule) 100 mg PO BID [facility] Last Admin: 11/20/22 08:15 Dose: 100 mg Documented By: FILOMENA Ferrous Sulfate (Ferrous Sulfate 324 Mg Tablet.) 324 mg PO DAILY [facility] Last Admin: 11/20/22 08:15 Dose: 324 mg Documented By: FILOMENA Furosemide (Furosemide 40 Mg Tablet) 40 mg PO DAILY [facility]; Protocol Last Admin: 11/20/22 08:15 Dose: 40 mg Documented By: FILOMENA Glucose (Glucose Gel 15 Gm Gel..Gram.) 15 gm PO Q15M PRN; Protocol PRN Reason: per Hypoglycemia Standing Ord. Dextrose (D10) 250 mls @ 750 mls/hr IV Q15M PRN; Protocol PRN Reason: per Hypoglycemia Standing Ord. Insulin Glargine (Insulin Glargine,Hum.Rec.Anlog 100 Unit/Ml 10 Ml Vial) 15 unit SUBCUT BEDTIME [facility] Insulin Human Lispro (Insulin Lispro 100 Unit/Ml 3 Ml Vial) 0 unit SUBCUT QIDACHS [facility]; Protocol Last Admin: 11/20/22 11:37 Dose: 6 unit Documented By: FILOMENA Lisinopril (Lisinopril 10 Mg Tablet) 30 mg PO DAILY [facility]; Protocol Last Admin: 11/20/22 08:25 Dose: 30 mg Documented By: FILOMENA Lorazepam (Lorazepam 1 Mg Tablet) 1 mg PO BID PRN PRN Reason: agitation Methadone HCl (Methadone Hcl 20 Mg/2 Ml Oral.Conc) 10 mg PO DAILY [facility] Last Admin: 11/20/22 08:14 Dose: 10 mg Documented By: FILOMENA Omeprazole (Omeprazole 20 Mg Capsule.) 20 mg PO DAILY@0630 [facility] Last Admin: 11/20/22 06:12 Dose: 20 mg Documented By: LAVERNE Ondansetron HCl (Ondansetron Hcl 4 Mg/2 Ml Vial) 4 mg IVPUSH Q8H PRN PRN Reason: Nausea and Vomiting Sodium Chloride (0.9 % Sodium Chloride Flush 3 Ml Syringe) 3 ml IVFLUSH QSHIFT [facility] Last Admin: 11/20/22 08:15 Dose: 3 ml Documented By: FILOMENA Vitamin D (Cholecalciferol (Vitamin D3) 25 Mcg Tablet) 25 mcg PO DAILY [facility] Last Admin: 11/20/22 08:15 Dose: 25 mcg Documented By: FILOMENA Zolpidem Tartrate (Zolpidem Tartrate 5 Mg Tablet) 5 mg PO BEDTIME [facility] Last Admin: 11/19/22 20:56 Dose: 5 mg Documented By: CHRISTIIT Labs 11/18/22 05:44 11/19/22 05:37 Labs: Laboratory Results - last 24 hr 11/19/22 11/19/22 11/19/22 16:28 18:02 20:14 POC Glucose 301 H 212 H Random Vancomycin 13.2 L 11/20/22 11/20/22 07:49 11:13 POC Glucose 207 H 290 H Random Vancomycin Microbiology Microbiology Results: Microbiology 11/17/22 20:44 Blood Culture - Preliminary Blood - Venous No growth after 48 hours. Assessment and Plan (1) Non-healing wound of amputation stump: Status: Acute Plan 62-year-old male with past medical history of diabetes presents the hospital with complaints of nonhealing left stump wound being evaluated outpatient, and sent to the hospital by wound clinic stump wound/diabetic ulcer does not meet SIRS criteria, no evidence of sepsis. no white count, no fever. elevated lactic acid may be due to metformin use MRI with possible small area of fluid of phlegmonous change or abscess - seen by general surgery, there is no drainable fluid collection abnormal signal in the anterior/midportion of the tibia suspicious for osteomyelitis - likely chronic - similar on MRI from June s/p IV and PO abx and ESR lower then previous. no pain at site of wound Blood cultures returned 1/2 positive for Gram-positive cocci, final result coagulase negative Staph, likely contaminant.? Seen in consultation by Infectious Diseases who recommended discharge with 30 days of oral doxycycline.? Recommended to follow up in Wound Care Clinic as scheduled lactic acidosis possibly related to metformin as no evidence of sirs T2DM Trulicity NF continue lower dose of baseline Lantus - will uptitrate dose of lantus Continue SSI, ADA diet hypertension continue norvasc, lisinopril chronic atrial fibrillation HR controlled continue Eduardo doesn't appear to be on rate control med CHF, unspecified no echo available continue lasix HLD continue statin OUD continue methadone DVT prophylaxis: Eduardo attending - dr. salgado dispo: pt recently homeless - PT eval for possible SNF placement vs fdc requires ongoing inpatient stay for safe disposition, general surgery eval in am Time Spent With Patient Time: Total time managing care of this patient today ____ minutes. Quality Stroke Does the patient have a stroke diagnosis?: No VTE Prior VTE?: No VTE Risk Level:: Medical - moderate - high VTE Device Contraindication: Treatment Not Indicated VTE Drug Contraindication: N/A - Med Ordered
[2022-11-20 15:43] VITALS: BP 134/71; PULSE 52; RESP 18; TEMP 36.1; O2SAT 98
[2022-11-20 16:13] LABS: Glucose, Whole Blood 234 mg/dL (60-115)
[2022-11-20 19:35] VITALS: BP 120/62; PULSE 51; RESP 16; TEMP 36; O2SAT 96
[2022-11-20] MEDS: Zolpidem Tartrate 5 MG TABLET PO (20:29)
[2022-11-20 20:38] LABS: Glucose, Whole Blood 243 mg/dL (60-115)
[2022-11-20] MEDS: Insulin Glargine,Hum.rec.anlog 100 UNIT/ML 10 ML VIAL 15 UNIT SUBCUT (20:39)
[2022-11-21 03:53] VITALS: BP 110/57; PULSE 53; RESP 18; TEMP 36.6; O2SAT 95
[2022-11-21] MEDS: Omeprazole 20 MG CAPSULE.DR PO (05:24)
[2022-11-21 07:12] VITALS: BP 132/94; PULSE 72; RESP 18; TEMP 36.6; O2SAT 98
[2022-11-21] MEDS: Insulin Lispro 100 UNIT/ML 3 ML VIAL SUBCUT ×4 (07:26→21:26)
[2022-11-21 07:37] LABS: Glucose, Whole Blood 256 mg/dL (60-115)
--- NOTE | 2022-11-21 07:47 | PC.NURSE ---
Refusing fall risk interventions. Bilateral BKA, states he transfers himself without assistance. Motorized scooter at bedside.
[2022-11-21] MEDS: lisinopriL 10 MG TABLET 30 MG PO (08:00)
[2022-11-21] MEDS: 0.9 % Sodium Chloride Flush 3 ML SYRINGE IVFLUSH ×3 (08:00→21:27)
[2022-11-21] MEDS: Atorvastatin Calcium 80 MG TABLET PO (08:00)
[2022-11-21] MEDS: methADONE HCl 20 MG/2 ML ORAL.CONC 10 MG PO (08:00)
[2022-11-21] MEDS: amLODIPine Besylate 10 MG TABLET PO (08:00)
[2022-11-21] MEDS: Furosemide 40 MG TABLET PO (08:01)
[2022-11-21] MEDS: Apixaban 5 MG TABLET PO ×2 (08:01→21:25)
[2022-11-21] MEDS: Doxycycline Monohydrate 100 MG CAPSULE PO ×2 (08:01→21:25)
[2022-11-21] MEDS: Ferrous Sulfate 324 MG TABLET.DR PO (08:01)
[2022-11-21] MEDS: Cholecalciferol (Vitamin D3) 25 MCG TABLET PO (08:01)
--- NOTE | 2022-11-21 09:47 | HO.PM.IMPN ---
Subjective Subjective Date of Service: 11/21/22 Interval History: Seen and examined this morning follow up for left stump wound no overnight events no pain at site of would Review of Systems Review of Systems: Yes all other systems are reviewed and are negative Constitutional Constitutional: Denies chills and Denies fever(s) Cardiovascular Cardiovascular: Denies chest pain, Denies palpitations and Denies dyspnea Respiratory Respiratory: Denies cough and Denies dyspnea Gastrointestinal Gastrointestinal: Denies abdominal pain, Reports constipation, Denies nausea and Denies vomiting Endocrine Endocrine: Denies palpitations Physical Exam Vital Signs: Vital Signs: Last Vital Signs Temp 97.8 F 11/21/22 07:12 Pulse 72 11/21/22 07:12 Resp 18 11/21/22 07:12 BP 132/94 H 11/21/22 07:12 Pulse Ox 98 11/21/22 07:12 O2 Del Method Room Air 11/21/22 07:12 BMI result Body Mass Index 31.7 Appearing in no acute distress lung sounds are clear to auscultation heart regular rate rhythm, clear S1, S2 positive bowel sounds, abdomen is soft, nontender neuro patient is alert x3, no focal deficits Bilat BKA Stump dressing intact Objective Data Active Medications Acetaminophen (Acetaminophen 325 Mg Tablet) 650 mg PO Q6H PRN PRN Reason: Pain, Mild (Pain Scale 1-3) Albuterol Sulfate (Albuterol Sulfate 90 Mcg 8 Gm Inhaler) 2 puff INHALE RQ6H PRN PRN Reason: wheezing Amlodipine Besylate (Amlodipine Besylate 10 Mg Tablet) 10 mg PO DAILY [facility]; Protocol Last Admin: 11/21/22 08:00 Dose: 10 mg Documented By: MARTHA Apixaban (Apixaban 5 Mg Tablet) 5 mg PO BID [facility] Last Admin: 11/21/22 08:01 Dose: 5 mg Documented By: MARTHA Atorvastatin Calcium (Atorvastatin Calcium 80 Mg Tablet) 80 mg PO DAILY [facility] Last Admin: 11/21/22 08:00 Dose: 80 mg Documented By: MARTHA Docusate Sodium (Docusate Sodium 100 Mg Capsule) 100 mg PO DAILY PRN PRN Reason: Constipation Last Admin: 11/20/22 06:17 Dose: 100 mg Documented By: LAVERNE Doxycycline Monohydrate (Doxycycline Monohydrate 100 Mg Capsule) 100 mg PO BID [facility] Last Admin: 11/21/22 08:01 Dose: 100 mg Documented By: MARTHA Ferrous Sulfate (Ferrous Sulfate 324 Mg Tablet.) 324 mg PO DAILY [facility] Last Admin: 11/21/22 08:01 Dose: 324 mg Documented By: MARTHA Furosemide (Furosemide 40 Mg Tablet) 40 mg PO DAILY [facility]; Protocol Last Admin: 11/21/22 08:01 Dose: 40 mg Documented By: MARTHA Glucose (Glucose Gel 15 Gm Gel..Gram.) 15 gm PO Q15M PRN; Protocol PRN Reason: per Hypoglycemia Standing Ord. Dextrose (D10) 250 mls @ 750 mls/hr IV Q15M PRN; Protocol PRN Reason: per Hypoglycemia Standing Ord. Insulin Glargine (Insulin Glargine,Hum.Rec.Anlog 100 Unit/Ml 10 Ml Vial) 15 unit SUBCUT BEDTIME [facility] Last Admin: 11/20/22 20:39 Dose: 15 unit Documented By: SANTO Insulin Human Lispro (Insulin Lispro 100 Unit/Ml 3 Ml Vial) 0 unit SUBCUT QIDACHS [facility]; Protocol Last Admin: 11/21/22 07:26 Dose: 6 unit Documented By: MARTHA Lisinopril (Lisinopril 10 Mg Tablet) 30 mg PO DAILY [facility]; Protocol Last Admin: 11/21/22 08:00 Dose: 30 mg Documented By: MARTHA Lorazepam (Lorazepam 1 Mg Tablet) 1 mg PO BID PRN PRN Reason: agitation Methadone HCl (Methadone Hcl 20 Mg/2 Ml Oral.Conc) 10 mg PO DAILY [facility] Last Admin: 11/21/22 08:00 Dose: 10 mg Documented By: MARTHA Omeprazole (Omeprazole 20 Mg Capsule.) 20 mg PO DAILY@0630 [facility] Last Admin: 11/21/22 05:24 Dose: 20 mg Documented By: BERT Ondansetron HCl (Ondansetron Hcl 4 Mg/2 Ml Vial) 4 mg IVPUSH Q8H PRN PRN Reason: Nausea and Vomiting Sodium Chloride (0.9 % Sodium Chloride Flush 3 Ml Syringe) 3 ml IVFLUSH QSHIFT [facility] Last Admin: 11/21/22 08:00 Dose: 3 ml Documented By: MARTHA Vitamin D (Cholecalciferol (Vitamin D3) 25 Mcg Tablet) 25 mcg PO DAILY [facility] Last Admin: 11/21/22 08:01 Dose: 25 mcg Documented By: MARTHA Zolpidem Tartrate (Zolpidem Tartrate 5 Mg Tablet) 5 mg PO BEDTIME [facility] Last Admin: 11/20/22 20:29 Dose: 5 mg Documented By: SANTO Labs 11/18/22 05:44 11/19/22 05:37 Labs: Laboratory Results - last 24 hr 11/20/22 11/20/22 11/20/22 11:13 16:07 20:34 POC Glucose 290 H 234 H 243 H 11/21/22 07:10 POC Glucose 256 H Assessment and Plan (1) Non-healing wound of amputation stump: Status: Acute Plan 62-year-old male with past medical history of diabetes presents the hospital with complaints of nonhealing left stump wound being evaluated outpatient, and sent to the hospital by wound clinic stump wound/diabetic ulcer does not meet SIRS criteria, no evidence of sepsis. no white count, no fever. elevated lactic acid may be due to metformin use MRI with possible small area of fluid of phlegmonous change or abscess - seen by general surgery, there is no drainable fluid collection abnormal signal in the anterior/midportion of the tibia suspicious for osteomyelitis - likely chronic - similar on MRI from June s/p IV and PO abx and ESR lower then previous. no pain at site of wound Blood cultures returned 1/2 positive for Gram-positive cocci, final result coagulase negative Staph, likely contaminant.? Seen in consultation by Infectious Diseases who recommended discharge with 30 days of oral doxycycline.? Recommended to follow up in Wound Care Clinic as scheduled lactic acidosis possibly related to metformin as no evidence of sirs T2DM Trulicity NF continue lower dose of baseline Lantus - will uptitrate dose of lantus Continue SSI, ADA diet hypertension continue norvasc, lisinopril chronic atrial fibrillation HR controlled continue Eduardo doesn't appear to be on rate control med CHF, unspecified no echo available continue lasix HLD continue statin OUD continue methadone DVT prophylaxis: Eduardo attending - dr. salgado dispo: pt recently homeless - PT eval for possible SNF placement vs longterm requires ongoing inpatient stay for safe disposition, general surgery eval in am Time Spent With Patient Time: Total time managing care of this patient today ____ minutes. Quality Stroke Does the patient have a stroke diagnosis?: No VTE Prior VTE?: No VTE Risk Level:: Medical - moderate - high VTE Device Contraindication: Treatment Not Indicated VTE Drug Contraindication: N/A - Med Ordered
[2022-11-21 11:36] LABS: Glucose, Whole Blood 222 mg/dL (60-115)
--- NOTE | 2022-11-21 11:46 | PM.PNGS ---
Subjective Subjective Date of Service: 11/21/22 Interval history: denies complaints I was asked to see him for an open wound on the left BKA stump he says he follows the wound clinic Physical Exam Vital Signs: Vital Signs: Last Vital Signs Temp 97.8 F 11/21/22 07:12 Pulse 72 11/21/22 07:12 Resp 18 11/21/22 07:12 BP 132/94 H 11/21/22 07:12 Pulse Ox 98 11/21/22 07:12 O2 Del Method Room Air 11/21/22 07:12 BMI result Body Mass Index 31.7 Const: General: comfortable and no acute distress Resp: Effort & Inspection: normal respiratory effort Cardio: Rate: regular rate Extrem: Other: open wound on tip of BKA stump on left, 3.2x3.o cm, circular, clean Objective Data Active Medications Acetaminophen (Acetaminophen 325 Mg Tablet) 650 mg PO Q6H PRN PRN Reason: Pain, Mild (Pain Scale 1-3) Albuterol Sulfate (Albuterol Sulfate 90 Mcg 8 Gm Inhaler) 2 puff INHALE RQ6H PRN PRN Reason: wheezing Amlodipine Besylate (Amlodipine Besylate 10 Mg Tablet) 10 mg PO DAILY [facility]; Protocol Last Admin: 11/21/22 08:00 Dose: 10 mg Documented By: MARTHA Apixaban (Apixaban 5 Mg Tablet) 5 mg PO BID [facility] Last Admin: 11/21/22 08:01 Dose: 5 mg Documented By: MARTHA Atorvastatin Calcium (Atorvastatin Calcium 80 Mg Tablet) 80 mg PO DAILY [facility] Last Admin: 11/21/22 08:00 Dose: 80 mg Documented By: MARTHA Docusate Sodium (Docusate Sodium 100 Mg Capsule) 100 mg PO DAILY PRN PRN Reason: Constipation Last Admin: 11/20/22 06:17 Dose: 100 mg Documented By: LAVERNE Doxycycline Monohydrate (Doxycycline Monohydrate 100 Mg Capsule) 100 mg PO BID [facility] Last Admin: 11/21/22 08:01 Dose: 100 mg Documented By: MARTHA Ferrous Sulfate (Ferrous Sulfate 324 Mg Tablet.) 324 mg PO DAILY [facility] Last Admin: 11/21/22 08:01 Dose: 324 mg Documented By: MARTHA Furosemide (Furosemide 40 Mg Tablet) 40 mg PO DAILY [facility]; Protocol Last Admin: 11/21/22 08:01 Dose: 40 mg Documented By: MARTHA Glucose (Glucose Gel 15 Gm Gel..Gram.) 15 gm PO Q15M PRN; Protocol PRN Reason: per Hypoglycemia Standing Ord. Dextrose (D10) 250 mls @ 750 mls/hr IV Q15M PRN; Protocol PRN Reason: per Hypoglycemia Standing Ord. Insulin Glargine (Insulin Glargine,Hum.Rec.Anlog 100 Unit/Ml 10 Ml Vial) 15 unit SUBCUT BEDTIME [facility] Last Admin: 11/20/22 20:39 Dose: 15 unit Documented By: SANTO Insulin Human Lispro (Insulin Lispro 100 Unit/Ml 3 Ml Vial) 0 unit SUBCUT QIDACHS [facility]; Protocol Last Admin: 11/21/22 11:29 Dose: 4 unit Documented By: MARTHA Lisinopril (Lisinopril 10 Mg Tablet) 30 mg PO DAILY [facility]; Protocol Last Admin: 11/21/22 08:00 Dose: 30 mg Documented By: MARTHA Lorazepam (Lorazepam 1 Mg Tablet) 1 mg PO BID PRN PRN Reason: agitation Methadone HCl (Methadone Hcl 20 Mg/2 Ml Oral.Conc) 10 mg PO DAILY [facility] Last Admin: 11/21/22 08:00 Dose: 10 mg Documented By: MARTHA Omeprazole (Omeprazole 20 Mg Capsule.Dr) 20 mg PO DAILY@0630 [facility] Last Admin: 11/21/22 05:24 Dose: 20 mg Documented By: BERT Ondansetron HCl (Ondansetron Hcl 4 Mg/2 Ml Vial) 4 mg IVPUSH Q8H PRN PRN Reason: Nausea and Vomiting Sodium Chloride (0.9 % Sodium Chloride Flush 3 Ml Syringe) 3 ml IVFLUSH QSHIFT [facility] Last Admin: 11/21/22 08:00 Dose: 3 ml Documented By: MARTHA Vitamin D (Cholecalciferol (Vitamin D3) 25 Mcg Tablet) 25 mcg PO DAILY [facility] Last Admin: 11/21/22 08:01 Dose: 25 mcg Documented By: MARTHA Zolpidem Tartrate (Zolpidem Tartrate 5 Mg Tablet) 5 mg PO BEDTIME [facility] Last Admin: 11/20/22 20:29 Dose: 5 mg Documented By: SANTO Labs 11/18/22 05:44 06/03/23 05:37 Labs: Laboratory Results - last 24 hr 11/20/22 11/20/22 11/21/22 16:07 20:34 07:10 POC Glucose 234 H 243 H 256 H 11/21/22 11:21 POC Glucose 222 H Procedures Date of Service Date of Service: 11/21/22 Progress Note: A&P Assessment and plan (1) Non-healing wound of amputation stump: Status: Acute Assessment and Plan: open wound clean, good granulation, viable I cahnged his dressings will need good wound care avoid pressure on area, no prostnetics for now he may ffup with wound clinic on discharge I can periodically check on the wound while he is here in the hospital Time Spent With Patient Time: Total time managing care of this patient today ____ minutes. Quality Stroke Does the patient have a stroke diagnosis?: No VTE Prior VTE?: No VTE Risk Level:: Medical - moderate - high VTE Device Contraindication: Treatment Not Indicated VTE Drug Contraindication: N/A - Med Ordered
[2022-11-21 15:58] VITALS: BP 115/63; PULSE 89; RESP 20; TEMP 37.1; O2SAT 94
[2022-11-21 16:33] LABS: Glucose, Whole Blood 194 mg/dL (60-115)
--- NOTE | 2022-11-21 16:40 | P.CDIM_ITS ---
PROVIDER RESPONSE TEXT: To clarify, the appropriate diagnosis supported by the clinical indicators: Acute QUERY TEXT: >>> Provider Instructions - Do not remove this line >>> PHYSICIAN'S DOCUMENTATION REQUEST Date of Query: 11/21/2022 12:42 PM EDT Patient Name: Lorenzo Lentz Admit Date: 11/18/2022 Dear Shahida Nielson, A review of the medical record indicates additional documentation may be needed. Please review below and update the documentation accordingly. Clinical Indicators: Lactic acid on 11/18/22: 2.6 Per Hospitalist Progress Note 11/21/22: Lactic Acidosis possibly related to Metformin Clarify which of the following accurately represents the acuity of the Lactic Acidosis. Possible options might include: <<< Provider Instructions - Do not remove this line <<< Acute Acute on chronic Compensated Chronic stable condition Other (explain)Clinically unable to determine (explain)>>> Contact Info Do not remove this line>>> Thank you, Jamilah George RN Use of terms such as suspected, likely, concern for, or probable (associated with a specific diagnosi s that is being evaluated, monitored, or treated as if it exists) are acceptable and can be coded in the inpatient se tting, when documented at the time of discharge. Please use your independent medical judgment in providing your response. THIS QUERY IS PART OF THE PERMANENT MEDICAL RECORD <<< Contact Info Do not remove this line <<< >>> Disclaimer - Do no remove this line>>> Extension: [phone] <<< Disclaimer - Do not remove this line<<<
[2022-11-21 20:00] VITALS: BP 139/77; PULSE 71; RESP 18; TEMP 36.5; O2SAT 96
[2022-11-21 20:48] LABS: Glucose, Whole Blood 292 mg/dL (60-115)
[2022-11-21] MEDS: Zolpidem Tartrate 5 MG TABLET PO (21:25)
[2022-11-21] MEDS: Insulin Glargine,Hum.rec.anlog 100 UNIT/ML 10 ML VIAL 15 UNIT SUBCUT (21:25)
[2022-11-21] MEDS: LORazepam 1 MG TABLET PO (22:30)
[2022-11-22 03:38] VITALS: BP 138/73; PULSE 70; RESP 18; TEMP 36.2; O2SAT 99
[2022-11-22 06:26] LABS: Anion Gap 8 (12-20); Blood Urea Nitrogen 21 mg/dL (9-16); Calcium 8.2 mg/dL (8.4-10.2); Carbon Dioxide 26 mmol/L (22-29); Chloride 106 mmol/L (96-108); Creatinine Clr Calc Pharmacy 145.3; Estimated Glomerular Filt Rate > 60; Glucose Random 200 mg/dL (60-115); Sodium 136 mmol/L (135-145)
[2022-11-22] MEDS: Omeprazole 20 MG CAPSULE.DR PO (06:35)
[2022-11-22] MEDS: Insulin Lispro 100 UNIT/ML 3 ML VIAL SUBCUT ×6 (07:27→21:27)
[2022-11-22] MEDS: 0.9 % Sodium Chloride Flush 3 ML SYRINGE IVFLUSH ×2 (07:27→16:50)
[2022-11-22 07:29] LABS: Glucose, Whole Blood 191 mg/dL (60-115)
[2022-11-22 07:53] VITALS: BP 142/73; PULSE 60; RESP 16; TEMP 36.4; O2SAT 97
[2022-11-22] MEDS: lisinopriL 10 MG TABLET 30 MG PO (08:02)
[2022-11-22] MEDS: Doxycycline Monohydrate 100 MG CAPSULE PO ×2 (08:02→19:43)
[2022-11-22] MEDS: Apixaban 5 MG TABLET PO ×2 (08:02→19:43)
[2022-11-22] MEDS: Atorvastatin Calcium 80 MG TABLET PO (08:02)
[2022-11-22] MEDS: methADONE HCl 20 MG/2 ML ORAL.CONC 10 MG PO (08:02)
[2022-11-22] MEDS: Ferrous Sulfate 324 MG TABLET.DR PO (08:02)
[2022-11-22] MEDS: Cholecalciferol (Vitamin D3) 25 MCG TABLET PO (08:02)
[2022-11-22] MEDS: amLODIPine Besylate 10 MG TABLET PO (08:03)
[2022-11-22] MEDS: Furosemide 40 MG TABLET PO (08:03)
--- NOTE | 2022-11-22 08:08 | PC.NURSE ---
Threw away Methadone Syringe prior to scanning. Witness with Chichi GRIGGS that patient received his dose this AM.
--- NOTE | 2022-11-22 09:45 | HO.PM.IMPN ---
Subjective Subjective Date of Service: 11/22/22 Interval History: Seen and examined this morning follow up for left stump wound no overnight events no pain at site of wound Review of Systems Review of Systems: Yes all other systems are reviewed and are negative Constitutional Constitutional: Denies chills and Denies fever(s) Cardiovascular Cardiovascular: Denies chest pain, Denies palpitations and Denies dyspnea Respiratory Respiratory: Denies cough and Denies dyspnea Gastrointestinal Gastrointestinal: Denies abdominal pain, Reports constipation, Denies nausea and Denies vomiting Endocrine Endocrine: Denies palpitations Physical Exam Vital Signs: Vital Signs: Last Vital Signs Temp 97.6 F 11/22/22 07:53 Pulse 60 11/22/22 07:53 Resp 16 11/22/22 07:53 BP 142/73 H 11/22/22 07:53 Pulse Ox 97 11/22/22 07:53 O2 Del Method Room Air 11/22/22 07:53 BMI result Body Mass Index 31.7 Appearing in no acute distress lung sounds are clear to auscultation heart regular rate rhythm, clear S1, S2 positive bowel sounds, abdomen is soft, nontender neuro patient is alert x3, no focal deficits Objective Data Active Medications Acetaminophen (Acetaminophen 325 Mg Tablet) 650 mg PO Q6H PRN PRN Reason: Pain, Mild (Pain Scale 1-3) Albuterol Sulfate (Albuterol Sulfate 90 Mcg 8 Gm Inhaler) 2 puff INHALE RQ6H PRN PRN Reason: wheezing Amlodipine Besylate (Amlodipine Besylate 10 Mg Tablet) 10 mg PO DAILY [facility]; Protocol Last Admin: 11/22/22 08:03 Dose: 10 mg Documented By: MARTHA Apixaban (Apixaban 5 Mg Tablet) 5 mg PO BID [facility] Last Admin: 11/22/22 08:02 Dose: 5 mg Documented By: MARTHA Atorvastatin Calcium (Atorvastatin Calcium 80 Mg Tablet) 80 mg PO DAILY [facility] Last Admin: 11/22/22 08:02 Dose: 80 mg Documented By: MARTHA Carbamide Peroxide (Carbamide Peroxide 6.5% Otic 15 Ml Drpbtl) 5 drop EAR-BOTH BID [facility] Stop: 11/26/22 08:06 Docusate Sodium (Docusate Sodium 100 Mg Capsule) 100 mg PO DAILY PRN PRN Reason: Constipation Last Admin: 11/20/22 06:17 Dose: 100 mg Documented By: LAVERNE Doxycycline Monohydrate (Doxycycline Monohydrate 100 Mg Capsule) 100 mg PO BID [facility] Last Admin: 11/22/22 08:02 Dose: 100 mg Documented By: MARTHA Ferrous Sulfate (Ferrous Sulfate 324 Mg Tablet.) 324 mg PO DAILY [facility] Last Admin: 11/22/22 08:02 Dose: 324 mg Documented By: MARTHA Furosemide (Furosemide 40 Mg Tablet) 40 mg PO DAILY [facility]; Protocol Last Admin: 11/22/22 08:03 Dose: 40 mg Documented By: MARTHA Glucose (Glucose Gel 15 Gm Gel..Gram.) 15 gm PO Q15M PRN; Protocol PRN Reason: per Hypoglycemia Standing Ord. Dextrose (D10) 250 mls @ 750 mls/hr IV Q15M PRN; Protocol PRN Reason: per Hypoglycemia Standing Ord. Insulin Glargine (Insulin Glargine,Hum.Rec.Anlog 100 Unit/Ml 10 Ml Vial) 15 unit SUBCUT BEDTIME [facility] Last Admin: 11/21/22 21:25 Dose: 15 unit Documented By: TISHA Insulin Human Lispro (Insulin Lispro 100 Unit/Ml 3 Ml Vial) 0 unit SUBCUT QIDACHS [facility]; Protocol Last Admin: 11/22/22 07:27 Dose: 2 unit Documented By: MARTHA Lisinopril (Lisinopril 10 Mg Tablet) 30 mg PO DAILY [facility]; Protocol Last Admin: 11/22/22 08:02 Dose: 30 mg Documented By: MARTHA Lorazepam (Lorazepam 1 Mg Tablet) 1 mg PO BID PRN PRN Reason: agitation Last Admin: 11/21/22 22:30 Dose: 1 mg Documented By: TISHA Methadone HCl (Methadone Hcl 20 Mg/2 Ml Oral.Conc) 10 mg PO DAILY [facility] Last Admin: 11/22/22 08:02 Dose: 10 mg Documented By: MARTHA Omeprazole (Omeprazole 20 Mg Capsule.) 20 mg PO DAILY@0630 [facility] Last Admin: 11/22/22 06:35 Dose: 20 mg Documented By: MARCOS Ondansetron HCl (Ondansetron Hcl 4 Mg/2 Ml Vial) 4 mg IVPUSH Q8H PRN PRN Reason: Nausea and Vomiting Sodium Chloride (0.9 % Sodium Chloride Flush 3 Ml Syringe) 3 ml IVFLUSH QSHIFT [facility] Last Admin: 11/22/22 07:27 Dose: 3 ml Documented By: MARTHA Vitamin D (Cholecalciferol (Vitamin D3) 25 Mcg Tablet) 25 mcg PO DAILY [facility] Last Admin: 11/22/22 08:02 Dose: 25 mcg Documented By: MARTHA Zolpidem Tartrate (Zolpidem Tartrate 5 Mg Tablet) 5 mg PO BEDTIME [facility] Last Admin: 11/21/22 21:25 Dose: 5 mg Documented By: TISHA Labs 11/18/22 05:44 11/22/22 05:48 Labs: Laboratory Results - last 24 hr 11/21/22 11/21/22 11/21/22 11:21 16:24 20:45 Anion Gap Estim Creat Clear Calc Estimated GFR POC Glucose 222 H 194 H 292 H Random Glucose Calcium 11/22/22 11/22/22 05:48 07:23 Anion Gap 8 L Estim Creat Clear Calc 145.3 Estimated GFR > 60 POC Glucose 191 H Random Glucose 200 H Calcium 8.2 L Assessment and Plan (1) Non-healing wound of amputation stump: Status: Acute Plan 62-year-old male with past medical history of diabetes presents the hospital with complaints of nonhealing left stump wound being evaluated outpatient, and sent to the hospital by wound clinic Stump wound/diabetic ulcer MRI with possible small area of fluid of phlegmonous change or abscess - seen by general surgery, there is no drainable fluid collection abnormal signal in the anterior/midportion of the tibia suspicious for osteomyelitis - likely chronic - similar on MRI from June s/p IV and PO abx and ESR lower then previous. no pain at site of wound Blood cultures coagulase negative Staph, likely contaminant.? Seen in consultation by Infectious Diseases who recommended discharge with 30 days of oral doxycycline.? Recommended to follow up in Wound Care Clinic as scheduled lactic acidosis possibly related to metformin as no evidence of sirs T2DM Trulicity NF lantus mealtime insulin Continue SSI, ADA diet hypertension continue norvasc, lisinopril chronic atrial fibrillation HR controlled continue Eduardo doesn't appear to be on rate control med CHF, unspecified no echo available continue lasix HLD continue statin OUD continue methadone DVT prophylaxis: Eduardo attending - dr. Edgar dispo: pt recently homeless, CM working on STR vs jail requires ongoing inpatient stay for safe disposition Time Spent With Patient Time: Total time managing care of this patient today ____ minutes. Quality Stroke Does the patient have a stroke diagnosis?: No VTE Prior VTE?: No VTE Risk Level:: Medical - moderate - high VTE Device Contraindication: Treatment Not Indicated VTE Drug Contraindication: N/A - Med Ordered
[2022-11-22] MEDS: Carbamide Peroxide 6.5% Otic 15 ML DRPBTL 5 DROP EAR-BOTH ×2 (11:08→21:27)
[2022-11-22 11:23] LABS: Glucose, Whole Blood 305 mg/dL (60-115)
--- NOTE | 2022-11-22 11:54 | MHC.CM.PN ---
CM CALLED [facility] [place], THEY ARE CURRENTLY FULL AND UNABLE TO OFFER A SPOT. [facility] CAN FOLLOW BUT NO AVAILABILITY TODAY. [facility] UNA[facility] TO OFFER A BED. CM WILL CONTINUE TO FOLLOW AND WORK TOWARDS PLACEMENT FOR THIS PT.
[2022-11-22 15:35] VITALS: BP 131/61; RESP 17; O2SAT 98
[2022-11-22 16:22] LABS: Glucose, Whole Blood 258 mg/dL (60-115)
--- NOTE | 2022-11-22 17:56 | PC.NURSE ---
patient resting quietly
[2022-11-22] MEDS: Zolpidem Tartrate 5 MG TABLET PO (19:43)
[2022-11-22 19:48] VITALS: BP 121/68; PULSE 64; RESP 18; TEMP 36.3; O2SAT 97
[2022-11-22 21:24] LABS: Glucose, Whole Blood 252 mg/dL (60-115)
[2022-11-22] MEDS: Insulin Glargine,Hum.rec.anlog 100 UNIT/ML 10 ML VIAL 15 UNIT SUBCUT (21:26)
[2022-11-22] MEDS: Acetaminophen 325 MG TABLET 650 MG PO (22:25)
[2022-11-23] MEDS: 0.9 % Sodium Chloride Flush 3 ML SYRINGE IVFLUSH ×4 (00:19→21:02)
[2022-11-23] MEDS: Ketorolac Tromethamine 30 MG/ML VIAL IVPUSH (01:22)
[2022-11-23] MEDS: LORazepam 1 MG TABLET PO ×2 (01:25→21:01)
[2022-11-23 03:13] VITALS: BP 128/62; PULSE 56; RESP 14; TEMP 36.3; O2SAT 95
[2022-11-23] MEDS: Omeprazole 20 MG CAPSULE.DR PO (05:34)
[2022-11-23 07:26] VITALS: BP 138/73; PULSE 50; RESP 18; TEMP 36.4; O2SAT 96
[2022-11-23 07:31] LABS: Glucose, Whole Blood 195 mg/dL (60-115)
[2022-11-23] MEDS: Insulin Lispro 100 UNIT/ML 3 ML VIAL SUBCUT ×8 (08:31→21:03)
[2022-11-23] MEDS: Doxycycline Monohydrate 100 MG CAPSULE PO ×2 (08:32→21:01)
[2022-11-23] MEDS: Ferrous Sulfate 324 MG TABLET.DR PO (08:32)
[2022-11-23] MEDS: Cholecalciferol (Vitamin D3) 25 MCG TABLET PO (08:32)
[2022-11-23] MEDS: amLODIPine Besylate 10 MG TABLET PO (08:32)
[2022-11-23] MEDS: lisinopriL 10 MG TABLET 30 MG PO (08:32)
[2022-11-23] MEDS: Atorvastatin Calcium 80 MG TABLET PO (08:33)
[2022-11-23] MEDS: Apixaban 5 MG TABLET PO ×2 (08:33→21:01)
[2022-11-23] MEDS: Furosemide 40 MG TABLET PO (08:33)
[2022-11-23] MEDS: methADONE HCl 20 MG/2 ML ORAL.CONC 10 MG PO (08:38)
[2022-11-23] MEDS: Carbamide Peroxide 6.5% Otic 15 ML DRPBTL 5 DROP EAR-BOTH ×2 (08:39→21:02)
[2022-11-23 11:12] LABS: Glucose, Whole Blood 186 mg/dL (60-115)
--- NOTE | 2022-11-23 13:48 | HO.PM.IMPN ---
Subjective Subjective Date of Service: 11/23/22 Interval History: No acute issues overnight. Pain control poor Review of Systems Denies chest pain Denies shortness of breath Denies nausea vomiting diarrhea Denies fever chills Physical Exam Vital Signs: Vital Signs: Last Vital Signs Temp 97.6 F 11/23/22 07:26 Pulse 50 11/23/22 07:26 Resp 18 11/23/22 07:26 BP 138/73 11/23/22 07:26 Pulse Ox 96 11/23/22 07:26 O2 Del Method Room Air 11/23/22 07:26 BMI result Body Mass Index 31.7 Const: Other: Awake alert no acute distress Resp: Other: Clear to auscultation bilaterally no rales rhonchi or wheezes Cardio: Other: No S4; positive S1-S2; no S3 murmurs rubs or gallops Skin: Other: See admission photos Extrem: Other: See admission follow Objective Data Active Medications Acetaminophen (Acetaminophen 325 Mg Tablet) 650 mg PO Q6H PRN PRN Reason: Pain, Mild (Pain Scale 1-3) Last Admin: 11/22/22 22:25 Dose: 650 mg Documented By: SANTO Albuterol Sulfate (Albuterol Sulfate 90 Mcg 8 Gm Inhaler) 2 puff INHALE RQ6H PRN PRN Reason: wheezing Amlodipine Besylate (Amlodipine Besylate 10 Mg Tablet) 10 mg PO DAILY [facility]; Protocol Last Admin: 11/23/22 08:32 Dose: 10 mg Documented By: VALENTIN Apixaban (Apixaban 5 Mg Tablet) 5 mg PO BID [facility] Last Admin: 11/23/22 08:33 Dose: 5 mg Documented By: VALENTIN Atorvastatin Calcium (Atorvastatin Calcium 80 Mg Tablet) 80 mg PO DAILY [facility] Last Admin: 11/23/22 08:33 Dose: 80 mg Documented By: VALENTIN Carbamide Peroxide (Carbamide Peroxide 6.5% Otic 15 Ml Drpbtl) 5 drop EAR-BOTH BID [facility] Stop: 11/26/22 08:06 Last Admin: 11/23/22 08:39 Dose: 5 drop Documented By: VALENTIN Docusate Sodium (Docusate Sodium 100 Mg Capsule) 100 mg PO DAILY PRN PRN Reason: Constipation Last Admin: 11/20/22 06:17 Dose: 100 mg Documented By: LVAERNE Doxycycline Monohydrate (Doxycycline Monohydrate 100 Mg Capsule) 100 mg PO BID [facility] Last Admin: 11/23/22 08:32 Dose: 100 mg Documented By: VALENTIN Ferrous Sulfate (Ferrous Sulfate 324 Mg Tablet.) 324 mg PO DAILY [facility] Last Admin: 11/23/22 08:32 Dose: 324 mg Documented By: VALENTIN Furosemide (Furosemide 40 Mg Tablet) 40 mg PO DAILY [facility]; Protocol Last Admin: 11/23/22 08:33 Dose: 40 mg Documented By: VALENTIN Glucose (Glucose Gel 15 Gm Gel..Gram.) 15 gm PO Q15M PRN; Protocol PRN Reason: per Hypoglycemia Standing Ord. Dextrose (D10) 250 mls @ 750 mls/hr IV Q15M PRN; Protocol PRN Reason: per Hypoglycemia Standing Ord. Insulin Glargine (Insulin Glargine,Hum.Rec.Anlog 100 Unit/Ml 10 Ml Vial) 15 unit SUBCUT BEDTIME [facility] Last Admin: 11/22/22 21:26 Dose: 15 unit Documented By: SANTO Insulin Human Lispro (Insulin Lispro 100 Unit/Ml 3 Ml Vial) 0 unit SUBCUT QIDACHS [facility]; Protocol Last Admin: 11/23/22 12:40 Dose: 2 unit Documented By: VALENTIN Insulin Human Lispro (Insulin Lispro 100 Unit/Ml 3 Ml Vial) 5 unit SUBCUT QIDACHS [facility] Last Admin: 11/23/22 12:40 Dose: 5 unit Documented By: VALENTIN Lisinopril (Lisinopril 10 Mg Tablet) 30 mg PO DAILY [facility]; Protocol Last Admin: 11/23/22 08:32 Dose: 30 mg Documented By: VALENTIN Methadone HCl (Methadone Hcl 20 Mg/2 Ml Oral.Conc) 10 mg PO DAILY [facility] Last Admin: 11/23/22 08:38 Dose: 10 mg Documented By: VALENTIN Omeprazole (Omeprazole 20 Mg Capsule.) 20 mg PO DAILY@0630 [facility] Last Admin: 11/23/22 05:34 Dose: 20 mg Documented By: JULIETTE Ondansetron HCl (Ondansetron Hcl 4 Mg/2 Ml Vial) 4 mg IVPUSH Q8H PRN PRN Reason: Nausea and Vomiting Oxycodone HCl (Oxycodone Hcl Immed Release 5 Mg Tablet) 5 mg PO Q4H PRN PRN Reason: Pain, Moderate(Pain Scale 4-6) Sodium Chloride (0.9 % Sodium Chloride Flush 3 Ml Syringe) 3 ml IVFLUSH QSHIFT [facility] Last Admin: 11/23/22 08:32 Dose: 3 ml Documented By: VALENTIN Vitamin D (Cholecalciferol (Vitamin D3) 25 Mcg Tablet) 25 mcg PO DAILY [facility] Last Admin: 11/23/22 08:32 Dose: 25 mcg Documented By: VALENTIN Labs 11/18/22 05:44 11/22/22 05:48 Labs: Laboratory Results - last 24 hr 11/22/22 11/22/22 11/23/22 16:06 21:20 07:24 POC Glucose 258 H 252 H 195 H 11/23/22 11:04 POC Glucose 186 H Microbiology Microbiology Results: Microbiology 11/17/22 20:44 Blood Culture - Final Blood - Venous No growth after 5 days. Assessment and Plan (1) Non-healing wound of amputation stump: Status: Acute (2) Lactic acidosis: Status: Acute (3) Diabetes mellitus: Status: Acute (4) Essential hypertension: Status: Acute Plan 62-year-old male with past medical history of diabetes presents the hospital with complaints of nonhealing left stump wound being evaluated outpatient, and sent to the hospital by wound clinic 1.Stump wound/diabetic ulcer -seen by surgery; appreciate input no surgical intervention indicated -doxycycline 100 b.i.d. x4 weeks as per ID 2.Lactic acidosis -resolved 3.DMII -acceptable control on current regimen -continue lispro correctional scale -adjust as indicated 4.Hypertension -acceptable control on current therapies -adjust as indicated -follow renal/divalents 5.Chronic atrial fibrillation -acceptable control on no current therapies -Eliquis as ordered Full code Eliquis Requires ongoing hospitalization for safe placement Time Spent With Patient Time: Total time managing care of this patient today ____ minutes. Quality Stroke Does the patient have a stroke diagnosis?: No VTE Prior VTE?: No VTE Risk Level:: Medical - moderate - high VTE Device Contraindication: Treatment Not Indicated VTE Drug Contraindication: N/A - Med Ordered
--- NOTE | 2022-11-23 14:17 | MHC.CM.PN ---
Addendum entered by Radha Castillo 11/23/22 14:34: Facility may have a bed tomorrow. Plan is to contact the facility tomorrow. Original Note: Patient is planned for STR. [facility] is following. A clinical update has been sent to the facility. DP STR via BLS.
[2022-11-23 16:00] VITALS: BP 113/55; PULSE 60; RESP 20; TEMP 36; O2SAT 98
[2022-11-23 16:19] LABS: Glucose, Whole Blood 199 mg/dL (60-115)
[2022-11-23 19:44] VITALS: BP 140/75; PULSE 56; RESP 20; TEMP 36; O2SAT 97
[2022-11-23 20:51] LABS: Glucose, Whole Blood 239 mg/dL (60-115)
[2022-11-23] MEDS: oxyCODONE HCl Immed Release 5 MG TABLET PO (21:01)
[2022-11-23] MEDS: Ketorolac Tromethamine 15 MG/ML VIAL IVPUSH (21:02)
[2022-11-23] MEDS: Zolpidem Tartrate 5 MG TABLET PO (21:02)
[2022-11-23] MEDS: Insulin Glargine,Hum.rec.anlog 100 UNIT/ML 10 ML VIAL 15 UNIT SUBCUT (21:02)
[2022-11-24 03:32] VITALS: BP 123/68; PULSE 51; RESP 16; TEMP 36.3; O2SAT 96
[2022-11-24] MEDS: Omeprazole 20 MG CAPSULE.DR PO (05:55)
[2022-11-24 07:13] VITALS: BP 128/66; PULSE 49; RESP 18; TEMP 36.4; O2SAT 94
[2022-11-24 07:15] LABS: Glucose, Whole Blood 209 mg/dL (60-115)
[2022-11-24] MEDS: Insulin Lispro 100 UNIT/ML 3 ML VIAL SUBCUT ×8 (07:57→20:37)
[2022-11-24] MEDS: lisinopriL 10 MG TABLET 30 MG PO (07:58)
[2022-11-24] MEDS: methADONE HCl 20 MG/2 ML ORAL.CONC 10 MG PO (07:58)
[2022-11-24] MEDS: Ferrous Sulfate 324 MG TABLET.DR PO (07:59)
[2022-11-24] MEDS: Atorvastatin Calcium 80 MG TABLET PO (07:59)
[2022-11-24] MEDS: Cholecalciferol (Vitamin D3) 25 MCG TABLET PO (07:59)
[2022-11-24] MEDS: Furosemide 40 MG TABLET PO (07:59)
[2022-11-24] MEDS: Doxycycline Monohydrate 100 MG CAPSULE PO ×2 (07:59→20:36)
[2022-11-24] MEDS: amLODIPine Besylate 10 MG TABLET PO (07:59)
[2022-11-24] MEDS: 0.9 % Sodium Chloride Flush 3 ML SYRINGE IVFLUSH ×2 (07:59→16:45)
[2022-11-24] MEDS: Apixaban 5 MG TABLET PO ×2 (07:59→20:36)
[2022-11-24] MEDS: Carbamide Peroxide 6.5% Otic 15 ML DRPBTL 5 DROP EAR-BOTH ×2 (08:10→20:36)
[2022-11-24 11:17] LABS: Glucose, Whole Blood 382 mg/dL (60-115)
--- NOTE | 2022-11-24 11:41 | PM.DS ---
DS: Providers Provider Date of Service: 11/24/22 Date of admission: 11/17/22 23:26 Date of discharge: 11/24/22 Primary care physician: Yoli Wilkins MD Consults: 11/17/22 23:25 Consult to Infectious Diseases Routine Consulting [place] [facility] [place] Reason for consultation: non-healing wound Has provider been notified: No 11/18/22 16:36 Consult to General Surgery Routine Consulting Provider: [facility] Reason for consultation: nonhealing wound, MRI with ?abscess Has provider been notified: No DS: Diagnosis Discharge Diagnosis (1) Non-healing wound of amputation stump: Status: Acute (2) Lactic acidosis: Status: Acute (3) Diabetes mellitus: Status: Acute (4) Essential hypertension: Status: Acute DS: Summary Hospital Course Hospital Course: From H&P on day of admission 62-year-old male past medical history of diabetes, hypertension, AFib, status post bilateral BKA, dyslipidemia, asthma, presents the hospital with complaints of nonhealing left stump wound.? Patient reports that the wound at this time started about 4 months ago, he has been going to wound care clinic every week, he reports that he went today and they sent into the hospital.? He states that he was on antibiotics for the wound about a month ago for complete 30 days with no resolution of the wound, the wound is draining, nontender, he denies any fever, no chills, denies any chest pain, no shortness of breath, no abdominal pain nausea or vomiting, no diarrhea constipation.? Of note patient is homeless and lives in the [facility] according to him On arrival to the ED patient hemodynamically stable with no significant abnormal vitals Labs are significant for WBC count of 10.7, ESR of 77, CRP of 0.7, and lactic acid of 2.3 X-ray of the tibia/fibula shows findings in the appearance of bone in the anterior inferior aspect of the tibial region, infection cannot be excluded, Patient started on IV antibiotics will be admitted for further management nonhealing stump wound/diabetic ulcer does not meet SIRS criteria, no evidence of sepsis. noo white count, no fever. elevated lactic acid may be due to metformin use. MRI with possible small area of fluid of phlegmonous change or abscess - seen by general surgery, there is no drainable fluid collection. abnormal signal in the anterior/midportion of the tibia suspicious for osteomyelitis - likely chronic - similar on MRI from June s/p IV and PO abx and ESR lower then previous. no pain at site of wound. initially treated with broad spectrum antibiotics. Blood cultures returned 1/2 positive for Gram-positive cocci, final result coagulase negative Staph, likely contaminant. Seen in consultation by Infectious Diseases who recommended discharge with 30 days of oral doxycycline. Recommended to follow up in Wound Care Clinic as scheduled and also follow-up with General surgery as he missed his last follow-up appointment. Time Spent with Patient Time attestation: Total time managing care of this patient today ____ minutes. Discharge coordination time: Greater than 30 minutes Quality: Safe Use of Opioids Does Pt have an Active Cancer Diagnosis on the Problem List?: No Quality: Stroke Does the patient have a stroke diagnosis?: No Physical Exam Vital Signs: Vital Signs: Last Vital Signs Temp 97.6 F 11/24/22 07:13 Pulse 49 L 11/24/22 07:13 Resp 18 11/24/22 07:13 BP 128/66 11/24/22 07:13 Pulse Ox 94 11/24/22 07:13 O2 Del Method Room Air 11/24/22 07:13 BMI result Body Mass Index 31.7 Const: Other: Awake alert no acute distress Resp: Other: Clear to auscultation bilaterally no rales rhonchi or wheezes Cardio: Other: No S4; positive S1-S2; no S3 murmurs rubs or gallops GI: Other: Soft nontender nondistended normoactive bowel sounds Extrem: Other: See admit photos DS: Data Data Completed and Pending Labs on day of discharge: Laboratory Results - last 24 hr 11/23/22 11/23/22 11/24/22 16:14 20:47 07:10 POC Glucose 199 H 239 H 209 H 11/24/22 11:12 POC Glucose 382 H* Discharge Plan Discharge Anticipated Discharge Date/Time: 11/24/22 11:38 Patient Disposition: Xfer [facility] Discharge Diagnosis: non healing wound of stump Referrals: Alexandro Plasencia MD [Physician] - 1 Week Yoli Ocampo MD [Primary Care Provider] - 1 Week Discharge Medications: New doxycycline hyclate 100 mg tablet 100 mg PO BID 30 Days Qty: 60 0RF Continued amlodipine 10 mg tablet 10 mg PO DAILY Qty: 30 6RF ferrous sulfate 325 mg (65 mg iron) tablet 325 mg PO DAILY 90 Days Qty: 90 0RF lorazepam 1 mg tablet 1 mg PO BID PRN (Reason: agitation) 30 Days Qty: 60 0RF zolpidem 10 mg tablet 10 mg PO DAILY 30 Days Qty: 30 0RF pantoprazole 40 mg tablet,delayed release (DR/EC) 40 mg PO DAILY albuterol sulfate [Ventolin HFA] 90 mcg/actuation HFA aerosol inhaler 2 puff inhalation Q6H PRN (Reason: wheezing) cholecalciferol (vitamin D3) 25 mcg (1,000 unit) capsule 25 mcg PO DAILY insulin lispro 100 unit/mL insulin pen 28 unit subcut BID insulin glargine [Lantus Solostar U-100 Insulin] 100 unit/mL (3 mL) insulin pen 20 unit subcut BEDTIME Eliquis 5 mg tablet 5 mg PO BID Trulicity 0.75 mg/0.5 mL pen injector 0.75 mg subcut QWEEK methadone 10 mg/mL Concentrate 10 mg PO DAILY atorvastatin 80 mg tablet 80 mg PO DAILY 90 Days Qty: 90 2RF furosemide 40 mg tablet 40 mg PO DAILY 90 Days Qty: 90 1RF lisinopril 30 mg tablet 30 mg PO DAILY Qty: 90 3RF metformin 1,000 mg tablet 1,000 mg PO BID 90 Days Qty: 180 2RF No Action (DME) scooter See Rx Instructions .Route .MEDSUPPLY Qty: 1 0RF Rx Instructions: As directed (DME) blood-glucose meter [FreeStyle Lite Meter] Kit See Rx Instructions .Route Qty: 1 0RF Rx Instructions: As directed (DME) wound vac See Rx Instructions .Route .MEDSUPPLY Qty: 1 0RF Rx Instructions: As directed (DME) electric wheelchair See Rx Instructions .Route .MEDSUPPLY Qty: 1 0RF Rx Instructions: As directed (DME) FreeStyle Test Strip See Rx Instructions .ROUTE .MEDSUPPLY Qty: 100 11RF Rx Instructions: Use 1 test strip three times a day diclofenac sodium 1 % gel 2 g topical QID 30 Days Qty: 100 1RF (DME) insulin syringe-needle U-100 0.3 mL 31 gauge x 5/16 syringe See Rx Instructions .ROUTE .MEDSUPPLY Qty: 100 3RF Rx Instructions: TID (DME) pen needle, diabetic [BD Ultra-Fine Mini Pen Needle] 31 gauge x 3/16 needle See Rx Instructions miscellaneous .MEDSUPPLY Qty: 100 3RF Rx Instructions: As directed Discharge Orders: Discharge Order (Routine); Ordered 11/24/22 Ordered By: Tao Subramanian Diet: Diabetic diet Activity on Discharge: As tolerated Stand Alone Forms: Patient Portal Discharge page Care Plan Goals: see below Health Concerns: stump wound Plan of Treatment: recommend to complete 30 days of po doxycycline continue outpatient follow up in would clinic recommend outpatient follow up with general surgery Assessment: see discharge summary
--- NOTE | 2022-11-24 13:24 | MHC.CM.PN ---
Patient planned for discharge today. The discharge was canceled because Methadone guest dosing could not be set up in time. [facility] is the patients Community clinic. They had staffing and tech issues today. Multiple phone calls and vm left for several different people. [facility] in [facility] was called. The situation was explained to Britany. She stated that she coordinates the [facility] Methadone for [facility]. She stated that she would get the guest dosing set with the [place] director. Multiple calls to [facility] + [place], no answer or ability to leave a vm. [facility] has been notified that dc on hold for guest dosing.
[2022-11-24 15:32] VITALS: BP 118/59; PULSE 63; RESP 18; TEMP 36.3; O2SAT 100
[2022-11-24 16:29] LABS: Glucose, Whole Blood 226 mg/dL (60-115)
[2022-11-24] MEDS: Acetaminophen 325 MG TABLET 650 MG PO (17:47)
[2022-11-24 20:00] VITALS: BP 144/67; PULSE 69; RESP 20; TEMP 36.6; O2SAT 96
[2022-11-24 20:11] LABS: Glucose, Whole Blood 295 mg/dL (60-115)
[2022-11-24] MEDS: Insulin Glargine,Hum.rec.anlog 100 UNIT/ML 10 ML VIAL 15 UNIT SUBCUT (20:37)
[2022-11-24] MEDS: Zolpidem Tartrate 5 MG TABLET PO (21:20)
--- NOTE | 2022-11-24 21:40 | PC.NURSE ---
pt lost IV access, he's leaving tomorrow to go to a facility and requested not to have another one placed, Dr. Rendon aware.
[2022-11-25] MEDS: Calcium Carbonate 750 MG TAB.CHEW PO (00:40)
[2022-11-25] MEDS: oxyCODONE HCl Immed Release 5 MG TABLET PO ×2 (01:33→07:20)
[2022-11-25 02:53] VITALS: BP 129/60; PULSE 55; RESP 16; TEMP 36.7; O2SAT 96
[2022-11-25] MEDS: Omeprazole 20 MG CAPSULE.DR PO (05:49)
[2022-11-25 07:11] VITALS: BP 127/59; PULSE 57; RESP 18; TEMP 36.9; O2SAT 98
[2022-11-25 07:22] LABS: Glucose, Whole Blood 214 mg/dL (60-115)
[2022-11-25] MEDS: Insulin Lispro 100 UNIT/ML 3 ML VIAL SUBCUT ×4 (07:24→11:41)
[2022-11-25] MEDS: Furosemide 40 MG TABLET PO (08:11)
[2022-11-25] MEDS: Ferrous Sulfate 324 MG TABLET.DR PO (08:11)
[2022-11-25] MEDS: methADONE HCl 20 MG/2 ML ORAL.CONC 10 MG PO (08:11)
[2022-11-25] MEDS: lisinopriL 10 MG TABLET 30 MG PO (08:11)
[2022-11-25] MEDS: Atorvastatin Calcium 80 MG TABLET PO (08:11)
[2022-11-25] MEDS: Cholecalciferol (Vitamin D3) 25 MCG TABLET PO (08:11)
[2022-11-25] MEDS: Carbamide Peroxide 6.5% Otic 15 ML DRPBTL 5 DROP EAR-BOTH (08:11)
[2022-11-25] MEDS: amLODIPine Besylate 10 MG TABLET PO (08:11)
[2022-11-25] MEDS: Apixaban 5 MG TABLET PO (08:11)
[2022-11-25] MEDS: Doxycycline Monohydrate 100 MG CAPSULE PO (08:11)
[2022-11-25 11:09] LABS: Glucose, Whole Blood 320 mg/dL (60-115)
--- NOTE | 2022-11-25 13:00 | MHC.CM.PN ---
Addendum entered by Nikki Campos 11/25/22 15:28: DCS UPLOADED TO [facility] AND SENT TO [facility] Original Note: PT HAS BEEN CLEARED TO DC FOR SEVERAL DAYS [facility] HAS OFFERED A BED PENDING GUEST DOSING BEING ARRANGED WITH [facility] IN [place] AND INSURANCE AUTH CM CALLED PTS HOME CLINIC, [facility] SEVERAL TIMES YESTERDAY AND TODAY LIBRADO AT THE [facility] CONFIRMED THIS AFTERNOON THAT EVERYTHING WAS SENT AND SHE SPOKE TO FRANDY AT THE [facility] [address] PHIL AT [facility] HAS CONFIRMED INSURANCE AUTH WAS OBTAINED CM AND PT CALLED THE [facility] LINE AND TRANSPORT HAS BEEN ARRANGED WITH [facility] FOR 1600 HOURS
--- NOTE | 2022-11-25 14:11 | PC.NURSE ---
Pt for discharge to [facility] in [place] report called to Kaleb Burger . Pt to be transported via [facility] eta 1600
[2022-11-25 15:31] VITALS: BP 127/59; PULSE 52; RESP 18; TEMP 36.3; O2SAT 98
== END 2022-11-25 15:40 | disposition skilled nursing facility (03) | DRG 349 ==
LOC: HO.ED 21:19 → HO.EDOVER 23:47 → HO.S3 11-18 15:13
PROVIDERS: Nurse Practitioner Acute Care; Physician Assistant Medical; Admitting Provider Internal Medicine; Emergency Provider Internal Medicine; PCP Internal Medicine; Visit Provider Hospitalist
DX: T87.44 Infection of amputation stump, left lower extremity (principal); I48.20 Chronic atrial fibrillation, unspecified; E11.622 Type 2 diabetes mellitus with other skin ulcer; I50.9 Heart failure, unspecified; I11.0 Hypertensive heart disease with heart failure; L02.416 Cutaneous abscess of left lower limb; M86.662 Other chronic osteomyelitis, left tibia and fibula; E11.69 Type 2 diabetes mellitus with other specified complication; E78.5 Hyperlipidemia, unspecified; F11.20 Opioid dependence, uncomplicated; L98.491 Non-pressure chronic ulcer of skin of other sites limited to breakdown of skin; T38.3X5A Adverse effect of insulin and oral hypoglycemic [antidiabetic] drugs, initial encounter; Z59.02 Unsheltered homelessness; Z87.891 Personal history of nicotine dependence; Z89.511 Acquired absence of right leg below knee; Z79.4 Long term (current) use of insulin; Z79.01 Long term (current) use of anticoagulants; Z79.84 Long term (current) use of oral hypoglycemic drugs; Z79.899 Other long term (current) drug therapy
CPT/HCPCS: 36415; 73590; 73720; 80048; 80076; 80202; 82947; 83605; 83690; 83735; 85025; 85652; 86140; 87040; 87147; 87205; 93005; 97162; 99285; A9585; J1885; J2543; J3370; J3371

== ENCOUNTER → 2022-12-05 09:38 | Outpatient (BNVA) | payer OTHER, SELFPAY | PROVIDERS: PCP Internal Medicine; Visit Provider Surgery | DX: T87.81 Dehiscence of amputation stump (principal); Z89.512 Acquired absence of left leg below knee | CPT/HCPCS: 99212 ==